=== PATIENT | female | born 1945 | race Caucasian/White ===

== ENCOUNTER 2017-07-23 12:30 | Emergency (ER) | payer MEDICARE, OTHER ==
[2017-07-23 12:51] VITALS: BP 134/74; PULSE 71; RESP 16; TEMP 97.3
--- NOTE | 2017-07-23 13:34 | ED ---
Fall HPI - General Chief Complaint: Fall Stated Complaint: Fall Time Seen by Provider: 07/23/17 13:01 Source: patient, RN notes reviewed Mode of arrival: wheelchair - History of Present Illness Initial Comments: This is a 71-year-old female who presents to the emergency department with chief complaint of fall. Patient states that 8 days ago while reaching up to grab something, she fell down and landed on her right side. She states that she was at ground level when she fell. She denies any head injury or loss of consciousness. Patient states that she "had the wind knocked out" of her and she "saw stars." Patient now complains of right sided rib pain. She states that the pain is positional, increasing when going from a sitting to a standing position or trying to get up. Patient states that last night when she went to get up to use the bathroom she felt a sharp pain underneath her right breast. She states that holding on to her ribs and applying pressure makes it easier to move about. Patient is concerned she may have a hairline rib fracture. Patient denies any other injuries. Denies fever, chills, chest pain, shortness of breath, abdominal pain, nausea or vomiting, constipation or diarrhea, dysuria or hematuria, numbness or tingling, headache or vision changes. - Related Data Allergies Allergy/AdvReac Type Severity Reaction Status Date / Time No Known Allergies Allergy Verified 07/23/17 12:41 Review of Systems ROS Statement: Those systems with pertinent positive or pertinent negative responses have been documented in the HPI. ROS Other: All systems not noted in ROS Statement are negative. Past Medical History Past Medical History: Hypertension History of Any Multi-Drug Resistant Organisms: None Reported Past Surgical History: Tubal Ligation Past Psychological History: Anxiety Smoking Status: Current every day smoker Past Alcohol Use History: None Reported Past Drug Use History: None Reported General Exam - General Exam Comments Initial Comments: General: Awake and alert, well-developed; in no apparent distress. HEENT: Head atraumatic, normocephalic. Pupils are equal, round and reactive to light. Extraocular movements intact. Oropharynx moist without erythema or exudate. Neck: Supple. Normal ROM. Cardiovascular: Regular rate and rhythm. No murmurs, rubs or gallops. Chest symmetrical. Tenderness on palpation of ribs underlying right breast. Respiratory: Lungs clear to auscultation bilaterally. No wheezes, rales or rhonchi. Normal respiratory effort with no use of accessory muscles. Skin: Mott, warm and dry without rashes or lesions. Neurological: Alert and oriented x3. CN II-XII grossly intact. Speech is fluent and answers are appropriate. No focal neuro deficits. Psychiatric: Normal mood and affect. No overt signs of depression or anxiety noted. Limitations: no limitations Course Vital Signs 07/23/17 12:41 Temperature 97.3 F L Pulse Rate 71 Respiratory 16 Rate Blood Pressure 134/74 O2 Sat by Pulse 95 Oximetry Medical Decision Making - Medical Decision Making This is a 71-year-old female who presents to the emergency department for evaluation of right-sided rib pain. On presentation, patient's vital signs are stable. Patient states her pain is positional, increasing with movement. She denies any shortness of breath or difficulty breathing. Chest and rib x-ray revealed no acute abnormalities. There is no evidence of a displaced rib fracture. Discussed with patient that she may have a hairline fracture of the rib which can take 6-8 weeks to heal. I notified patient that chest x-rays can miss hairline fractures. Patient was given an incentive spirometer and instructed to use 10 times per hour each day. Patient requested an Nikolay bandage to help relieve the pain. I educated patient that this restricts lungs capacity to fully inflate which may lead to pneumonia. Recommended the use of Tylenol as needed for pain. Patient will be discharged home. She is in agreement with plan and voices understanding. All questions were answered. This case was discussed with attending physician, Dr. Bruner. - Radiology Data Radiology results: report reviewed X-ray right ribs with PA chest findings: Lungs are clear. No consolidation or pneumothorax. There is diffuse osteopenia. There is a large hiatal hernia. Arthropathy of the before meals joint. Impression: No acute displaced rib fracture. Disposition Clinical Impression: Rib pain on right side Disposition: HOME SELF-CARE Condition: Good Instructions: Rib Contusion (ED) Additional Instructions: Please use incentive spirometer 10 times per hour each day. Please follow up with primary care provider within 1-2 days. Return to emergency department if symptoms should worsen or any concerns arise. Referrals: Tess Abraham III, MD [Primary Care Provider] - 1-2 days Time of Disposition: 14:28
--- NOTE | 2017-07-23 13:38 | XR ---
EXAMINATION TYPE: XR ribs RT w pa chest xray DATE OF EXAM: 07/23/2017 COMPARISON: NONE HISTORY: Pain post fall TECHNIQUE: PA view the chest and 4 views of the right ribs submitted FINDINGS: Lungs are clear. No consolidation or pneumothorax. There is diffuse osteopenia. There is a large hiatal hernia. Arthropathy of the AC joint. IMPRESSION: No acute displaced rib fracture
== END 2017-07-23 14:46 | disposition home or self-care (01) ==
LOC: EC 12:30
DX: R07.81 Pleurodynia (principal); F17.200 Nicotine dependence, unspecified, uncomplicated; W18.39XA Other fall on same level, initial encounter
CPT/HCPCS: 99283

== ENCOUNTER → 2019-01-29 | Outpatient (CLI) | payer MEDICARE, OTHER ==
[2019-01-29 09:27] LABS: African American GFR (CKD) >90 (>60 ml/min/1.73 sqM); Blood Urea Nitrogen 21 mg/dL (7-17)
--- NOTE | 2019-01-29 11:48 | CT ---
EXAMINATION TYPE: CT soft tissue neck w con DATE OF EXAM: 01/29/2019 COMPARISON: HISTORY: Right neck mass CONTRAST: CT scan of the neck is performed with IV Contrast, patient injected with 100 mL of Isovue 300. Contrast enhanced CT of the neck was performed from the skull base through the lung apices. AIRWAY: The supraglottic, glottic, and subglottic portions of the airway appear patent and free of mass. SALIVARY GLANDS: Predominately solid mass right parotid gland at the site of the palpable abnormality measuring 3.3 x 2.3 x 3.5 cm with a few small left intracystic components. Tissue diagnosis is recom mended to exclude the malignancy. No additional masses are seen of the either parotid gland. THYROID GLAND: Nonspecific hypoattenuating right thyroid lesion. LYMPH NODES: There is no evidence for periparotid adenopathy or internal jugular chain adenopathy. Th ere is a prominent lymph node within the right supraclavicular region measuring 1.2 cm short axis. LUNG APICES: No nodule or mass is seen. OTHER: Vascular structures are patent. No significant degenerative change of the cervical spine. N o abscess seen. IMPRESSION: 1.Predominately solid mass right parotid gland at the site of the palpable abnormality measuring 3.3 x 2.3 x 3.5 cm with a few small left intracystic components. Tissue diagnosis is recommended to exclu de the malignancy. 2. Right supraclavicular adenopathy.
== END | disposition home or self-care (01) ==
LOC: RADCTMAIN 08:28
PROVIDERS: ATTEND Family Medicine
DX: R59.9 Enlarged lymph nodes, unspecified (principal); R22.1 Localized swelling, mass and lump, neck
CPT/HCPCS: 82565; 84520; 70491; 36415; Q9967

== ENCOUNTER 2019-08-01 21:32 | Inpatient (IN) | payer MEDICARE, OTHER ==
[2019-08-01] MEDS ORDERED: SODIUM CHLORIDE 0.9% 1,000 ML IV STA (21:42)
[2019-08-01 22:24] LABS: ALT 100 U/L (4-34); AST 117 U/L (14-36); African American GFR (CKD) >90 (>60 ml/min/1.73 sqM); Albumin 3.7 g/dL (3.5-5.0); Alkaline Phosphatase 154 U/L (38-126); Amylase 223 U/L (30-110); Anion Gap 5 mmol/L; Basophils # (A) 0.1 k/uL (0-0.2); Basophils % (A) 1 %; Blood Urea Nitrogen 20 mg/dL (7-17); Calcium 8.8 mg/dL (8.4-10.2); Carbon Dioxide 26 mmol/L (22-30); Chloride 108 mmol/L (98-107); Eosinophils # (A) 0.1 k/uL (0-0.7); Eosinophils % (A) 1 %; Glucose 140 mg/dL (74-99); HCT 44.7 % (34.0-46.0); Lymphocytes # (A) 1.6 k/uL (1.0-4.8); Lymphocytes % (A) 16 %; MCH 27.5 pg (25.0-35.0); MCHC 31.2 g/dL (31.0-37.0); MCV 88.1 fL (80.0-100.0); Mean Platelet Volume 7.9; Monocytes # (A) 0.5 k/uL (0-1.0); Monocytes % (A) 5 %; Neutrophils # (A) 7.6 k/uL (1.3-7.7); Neutrophils % (A) 76 %; Non-African American GFR(CKD) >90 (>60 ml/min/1.73 sqM); Platelet Count 262 k/uL (150-450); RBC 5.08 m/uL (3.80-5.40); RDW 12.7 % (11.5-15.5); Sodium 139 mmol/L (137-145); Total Bilirubin 1.8 mg/dL (0.2-1.3); Total Protein 6.7 g/dL (6.3-8.2)
[2019-08-01 22:29] LABS: Partial Thromboplastin Time 23.5 sec (22.0-30.0); Prothrombin Time 10.1 sec (9.0-12.0)
--- NOTE | 2019-08-01 22:33 | ED ---
Abdominal Pain HPI - General Chief Complaint: Abdominal Pain Stated Complaint: Abdominal Pain Time Seen by Provider: 08/01/19 21:34 Source: patient, EMS, RN notes reviewed, old records reviewed Mode of arrival: EMS - History of Present Illness Initial Comments: This is a 73-year-old female here for evaluation of severe abdominal pain, epigastric a recurrent bowel pain severe history of gallbladder disease coming in with acute onset of sudden pain after eating dinner tonight. Patient has no prior surgical history. No shortness of breath no recent fevers. No recent chills or sick contacts, occasional diarrhea severe nausea no vomiting. She has had conflicting evaluations regarding gallbladder, no prior surgical evaluation MD Complaint: abdominal pain (Right upper quadrant epigastric) -: hour(s) Location: RUQ Radiation: RUQ Migration to: no migration Severity: severe Severity scale (1-10): 8 Quality: stabbing Consistency: constant Improves With: nothing Worsens With: eating - Related Data Allergies Allergy/AdvReac Type Severity Reaction Status Date / Time No Known Allergies Allergy Verified 07/23/17 12:41 Review of Systems ROS Statement: Those systems with pertinent positive or pertinent negative responses have been documented in the HPI. ROS Other: All systems not noted in ROS Statement are negative. Past Medical History Past Medical History: Hypertension History of Any Multi-Drug Resistant Organisms: None Reported Past Surgical History: Tubal Ligation Past Psychological History: Anxiety Smoking Status: Current every day smoker Past Alcohol Use History: None Reported Past Drug Use History: None Reported General Exam General appearance: alert, in no apparent distress, obese Head exam: Present: atraumatic, normocephalic, normal inspection Eye exam: Present: normal appearance, PERRL, EOMI. Absent: scleral icterus, conjunctival injection, periorbital swelling ENT exam: Present: normal exam, mucous membranes moist Neck exam: Present: normal inspection. Absent: tenderness, meningismus, lymphadenopathy Respiratory exam: Present: normal lung sounds bilaterally. Absent: respiratory distress, wheezes, rales, rhonchi, stridor Cardiovascular Exam: Present: regular rate, normal rhythm, normal heart sounds. Absent: systolic murmur, diastolic murmur, rubs, gallop, clicks GI/Abdominal exam: Present: soft, distended, tenderness, guarding (RUQ), normal bowel sounds. Absent: rebound, rigid Extremities exam: Present: normal inspection, full ROM, normal capillary refill. Absent: tenderness, pedal edema, joint swelling, calf tenderness Back exam: Present: normal inspection Neurological exam: Present: alert, oriented X3, CN II-XII intact Psychiatric exam: Present: normal affect, normal mood Skin exam: Present: warm, dry, intact, normal color. Absent: rash Course Vital Signs 08/01/19 08/01/19 08/01/19 21:38 22:30 23:00 Temperature 97.8 F Pulse Rate 64 110 H 113 H Respiratory 16 18 18 Rate Blood Pressure 112/54 120/65 172/88 O2 Sat by Pulse 93 L 100 99 Oximetry - Reevaluation(s) Reevaluation #1: 08/02/19 00:51 Medical records reviewed Reevaluation #2: 08/02/19 00:51 Pain improved - Consultations Consultation #1: [place] With Dr. Maradiaga accepting for admission Medical Decision Making - Medical Decision Making 9-year-old female here for evaluation his gallbladder disease, acute gallbladder cholecystitis, acute gallbladder pancreatitis. Patient be admitted for pain control and surgical evaluation - Lab Data Result diagrams: 08/01/19 21:42 08/01/19 21:42 Lab Results 08/01/19 08/01/19 08/01/19 Range/Units 21:42 21:42 21:42 WBC 10.0 (3.8-10.6) k/uL RBC 5.08 (3.80-5.40) m/uL Hgb 14.0 (11.4-16.0) gm/dL Hct 44.7 (34.0-46.0) % MCV 88.1 (80.0-100.0) fL MCH 27.5 (25.0-35.0) pg MCHC 31.2 (31.0-37.0) g/dL RDW 12.7 (11.5-15.5) % Plt Count 262 (150-450) k/uL Neutrophils % 76 % Lymphocytes % 16 % Monocytes % 5 % Eosinophils % 1 % Basophils % 1 % Neutrophils # 7.6 (1.3-7.7) k/uL Lymphocytes # 1.6 (1.0-4.8) k/uL Monocytes # 0.5 (0-1.0) k/uL Eosinophils # 0.1 (0-0.7) k/uL Basophils # 0.1 (0-0.2) k/uL PT (9.0-12.0) sec INR (<1.2) APTT (22.0-30.0) sec Sodium 139 (137-145) mmol/L Potassium 4.0 (3.5-5.1) mmol/L Chloride 108 H (98-107) mmol/L Carbon Dioxide 26 (22-30) mmol/L Anion Gap 5 mmol/L BUN 20 H (7-17) mg/dL Creatinine 0.60 (0.52-1.04) mg/dL Est GFR (CKD-EPI)AfAm >90 (>60 ml/min/1.73 sqM) Est GFR (CKD-EPI)NonAf >90 (>60 ml/min/1.73 sqM) Glucose 140 H (74-99) mg/dL Plasma Lactic Acid Maldonado 0.9 (0.7-2.0) mmol/L Calcium 8.8 (8.4-10.2) mg/dL Total Bilirubin 1.8 H (0.2-1.3) mg/dL AST 117 H (14-36) U/L ALT 100 H (4-34) U/L Alkaline Phosphatase 154 H (38-126) U/L Total Protein 6.7 (6.3-8.2) g/dL Albumin 3.7 (3.5-5.0) g/dL Amylase 223 H (30-110) U/L Lipase 5591 H (23-300) U/L 08/01/19 Range/Units 21:42 WBC (3.8-10.6) k/uL RBC (3.80-5.40) m/uL Hgb (11.4-16.0) gm/dL Hct (34.0-46.0) % MCV (80.0-100.0) fL MCH (25.0-35.0) pg MCHC (31.0-37.0) g/dL RDW (11.5-15.5) % Plt Count (150-450) k/uL Neutrophils % % Lymphocytes % % Monocytes % % Eosinophils % % Basophils % % Neutrophils # (1.3-7.7) k/uL Lymphocytes # (1.0-4.8) k/uL Monocytes # (0-1.0) k/uL Eosinophils # (0-0.7) k/uL Basophils # (0-0.2) k/uL PT 10.1 (9.0-12.0) sec INR 1.0 (<1.2) APTT 23.5 (22.0-30.0) sec Sodium (137-145) mmol/L Potassium (3.5-5.1) mmol/L Chloride (98-107) mmol/L Carbon Dioxide (22-30) mmol/L Anion Gap mmol/L BUN (7-17) mg/dL Creatinine (0.52-1.04) mg/dL Est GFR (CKD-EPI)AfAm (>60 ml/min/1.73 sqM) Est GFR (CKD-EPI)NonAf (>60 ml/min/1.73 sqM) Glucose (74-99) mg/dL Plasma Lactic Acid Maldonado (0.7-2.0) mmol/L Calcium (8.4-10.2) mg/dL Total Bilirubin (0.2-1.3) mg/dL AST (14-36) U/L ALT (4-34) U/L Alkaline Phosphatase (38-126) U/L Total Protein (6.3-8.2) g/dL Albumin (3.5-5.0) g/dL Amylase (30-110) U/L Lipase (23-300) U/L - Radiology Data Radiology results: report reviewed (Ultrasound positive for dilated common bile duct stone), image reviewed Disposition Clinical Impression: Acute gallstone pancreatitis, Abdominal pain Disposition: ADMITTED IP TO THIS [facility] Condition: Good Is patient prescribed a controlled substance at d/c from ED?: No Referrals: Tess Abraham III, MD [Primary Care Provider] - 1-2 days
--- NOTE | 2019-08-01 23:00 | US ---
EXAMINATION TYPE: US gallbladder DATE OF EXAM: 08/01/2019 COMPARISON: NONE CLINICAL HISTORY: pain. Abdomen pain x 1 day, patient not NPO, ate 3 hours prior to exam. EXAM MEASUREMENTS: Liver Length: 16.6 cm Gallbladder Wall: 0.2 cm CBD: 1.4 cm Right Kidney: 12.1 x 5.2 x 4.6 cm Difficult and limited study due to patient body habitus Pancreas: visualized portions wnl, limited by overlying midline bowel gas Liver: heterogeneous, mild intrahepatic ductal dilation Gallbladder: hydropic, multiple echogenic shadowing stones with largest measuring 2.7cm Evidence for sonographic Pate's sign: yes CBD: dilated Right Kidney: wnl IMPRESSION: Dilated gallbladder with numerous gallstones consistent with acute and chronic cholecystitis. No dila tion seen of the intrahepatic bile ducts.
[2019-08-01] MEDS ORDERED: KETOROLAC 30 MG/ML 1 ML VIAL IVP STA (23:09)
[2019-08-01] MEDS ORDERED: ONDANSETRON 4 MG/2 ML VIAL IVP STA (23:10)
[2019-08-02] MEDS ORDERED: AMPICILLIN-SULBACTAM 3 GM in SODIUM CHLORIDE 0.9% 100 ML IVPB STA (00:49)
[2019-08-02] MEDS ORDERED: SODIUM CHLORIDE 0.9% 1,000 ML IV STA ×2 (00:49)
[2019-08-02] MEDS ORDERED: MORPHINE SULFATE 4 MG/ML SYRINGE IVP STA (00:49)
[2019-08-02] MEDS ORDERED: SODIUM CHLORIDE 0.9% 500 ML 500 ML IV STA (00:49)
[2019-08-02] MEDS ORDERED: AMPICILLIN-SULBACTAM 3 GM in SODIUM CHLORIDE 0.9% 100 ML IVPB SCH (08:00)
[2019-08-02] MEDS: ENOXAPARIN 40 MG/0.4 ML SYRINGE SQ SCH ×2 (09:34→12:12)
--- NOTE | 2019-08-02 12:08 | P.GSHP ---
History of Present Illness H&P Date: 08/02/19 Chief Complaint: Dull pain This is a 73-year-old female who was admitted through the emergency room last night with complaints of abdominal pain. Patient's workup found evidence of gallstone pancreatitis with elevated lipase and amylase. She is several large gallstones in her gallbladder. Patient states that her pain is improved this morning. 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 Past Anesthesia/Blood Transfusion Reactions: No Reported Reaction Past Psychological History: Anxiety Additional Psychological History / Comment(s): PANIC ATTACKS ALMOST EVERY NIGHT BEFORE DEEP SLEEP Smoking Status: Current every day smoker Past Alcohol Use History: None Reported Past Drug Use History: None Reported Medications and Allergies Home Medications Medication Instructions Recorded Confirmed Type Carvedilol [Coreg] 3.125 mg PO BID 08/02/19 08/02/19 History Diazepam 2 - 4 mg PO DAILY PRN 08/02/19 08/02/19 History Lisinopril 40 mg PO DAILY 08/02/19 08/02/19 History amLODIPine [Norvasc] 5 mg PO DAILY 08/02/19 08/02/19 History Allergies Allergy/AdvReac Type Severity Reaction Status Date / Time No Known Allergies Allergy Verified 08/02/19 08:34 Surgical - Exam Vital Signs Temp Pulse Resp BP Pulse Ox 97.8 F 64 16 112/54 93 L 08/01/19 21:38 08/01/19 21:38 08/01/19 21:38 08/01/19 21:38 08/01/19 21:38 - General well developed, well nourished, no distress - Eyes PERRL - ENT normal pinna - Neck no masses - Respiratory normal expansion - Cardiovascular Rhythm: regular - Abdomen Abdomen: soft, non tender Results - Labs 08/01/19 21:42 08/01/19 21:42 Abnormal Lab Results - Last 24 Hours (Table) 08/01/19 Range/Units 21:42 Chloride 108 H (98-107) mmol/L BUN 20 H (7-17) mg/dL Glucose 140 H (74-99) mg/dL Total Bilirubin 1.8 H (0.2-1.3) mg/dL AST 117 H (14-36) U/L ALT 100 H (4-34) U/L Alkaline Phosphatase 154 H (38-126) U/L Amylase 223 H (30-110) U/L Lipase 5591 H (23-300) U/L Diabetes panel 08/01/19 Range/Units 21:42 Sodium 139 (137-145) mmol/L Potassium 4.0 (3.5-5.1) mmol/L Chloride 108 H (98-107) mmol/L Carbon Dioxide 26 (22-30) mmol/L BUN 20 H (7-17) mg/dL Creatinine 0.60 (0.52-1.04) mg/dL Glucose 140 H (74-99) mg/dL Calcium 8.8 (8.4-10.2) mg/dL AST 117 H (14-36) U/L ALT 100 H (4-34) U/L Alkaline Phosphatase 154 H (38-126) U/L Total Protein 6.7 (6.3-8.2) g/dL Albumin 3.7 (3.5-5.0) g/dL Calcium panel 08/01/19 Range/Units 21:42 Calcium 8.8 (8.4-10.2) mg/dL Albumin 3.7 (3.5-5.0) g/dL Pituitary panel 08/01/19 Range/Units 21:42 Sodium 139 (137-145) mmol/L Potassium 4.0 (3.5-5.1) mmol/L Chloride 108 H (98-107) mmol/L Carbon Dioxide 26 (22-30) mmol/L BUN 20 H (7-17) mg/dL Creatinine 0.60 (0.52-1.04) mg/dL Glucose 140 H (74-99) mg/dL Calcium 8.8 (8.4-10.2) mg/dL Adrenal panel 08/01/19 Range/Units 21:42 Sodium 139 (137-145) mmol/L Potassium 4.0 (3.5-5.1) mmol/L Chloride 108 H (98-107) mmol/L Carbon Dioxide 26 (22-30) mmol/L BUN 20 H (7-17) mg/dL Creatinine 0.60 (0.52-1.04) mg/dL Glucose 140 H (74-99) mg/dL Calcium 8.8 (8.4-10.2) mg/dL Total Bilirubin 1.8 H (0.2-1.3) mg/dL AST 117 H (14-36) U/L ALT 100 H (4-34) U/L Alkaline Phosphatase 154 H (38-126) U/L Total Protein 6.7 (6.3-8.2) g/dL Albumin 3.7 (3.5-5.0) g/dL Assessment and Plan Assessment: Cholecystitis Gallstone hepatitis Patient will undergo laparoscopic cholecystectomy in the a.m.
--- NOTE | 2019-08-02 12:59 | P.CONS ---
History of Present Illness - History of Present Illness This is a pleasant 73 years old female with past medical history of hypertens ion, anxiety, currently smoker. She follows up with Dr. Abraham. Presents because of abdominal pain. Patient was at [facility] [place] about 2 weeks ago and diagnosed with abdominal pain secondary to cholecystitis, patient was sent home for outpatient cholecystectomy, however last night she developed severe upper abdominal pain radiating to the chest and back associated with nausea but no vomiting, and constipation for 3 days duration. On admission to the hospital patient was found acute and chronic cholecystitis with gallstones on abdominal ultrasound. Vitals are stable, CBC within normal limits, BMP is unremarkable with creatinine 0.6, liver enzymes are mildly elevated with AST 117, ALT 100, bilirubin 1.8. Also lipase was elevated at 559. Patient was started on Unasyn, pain management with morphine and IV fluids at 100 mm/h but patient's his penile WANTED to be stopped or decreased, we going to lower rate to 50 mL/h 1 staff member told the patient that she has A. fib, patient denies history of A. fib, no EKG done in the emergency room as per patient, his EKG done on the floor which shows normal sinus rhythm at 63, also I checked the pulse for the patient and it was regular and good quality Currently her abdominal pain is significantly subsided, and she has any mild if any pain and on exam she has no tenderness. Patient also reports she has tumor in her right neck which is been checked by her surgeon at [facility] about 2 years ago and she's been told is benign, however she notices that is gradually getting bigger over 2 years.. Patient was encouraged to follow-up with the surgeon within 1-2 weeks and she agrees Review of Systems CONSTITUTIONAL: No fever, no malaise, no fatigue. HEENT: No recent visual problems or hearing problems. Denied any sore throat. CARDIOVASCULAR: No orthopnea, PND, no palpitations, no syncope. PULMONARY: No shortness of breath, no cough, no hemoptysis. GASTROINTESTINAL: No diarrhea, no nausea, no vomiting, no abdominal pain. Normoactive bowel sounds. NEUROLOGICAL: No headaches, no weakness, no numbness. HEMATOLOGICAL: Denies any bleeding or petechiae. GENITOURINARY: Denies any burning micturition, frequency, or urgency. MUSCULOSKELETAL/RHEUMATOLOGICAL: Denies any joint pain, swelling, or any muscle pain. ENDOCRINE: Denies any polyuria or polydipsia. 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 Past Anesthesia/Blood Transfusion Reactions: No Reported Reaction Past Psychological History: Anxiety Additional Psychological History / Comment(s): PANIC ATTACKS ALMOST EVERY NIGHT BEFORE DEEP SLEEP Smoking Status: Current every day smoker Past Alcohol Use History: None Reported Past Drug Use History: None Reported Medications and Allergies Home Medications Medication Instructions Recorded Confirmed Type Carvedilol [Coreg] 3.125 mg PO BID 08/02/19 08/02/19 History Diazepam 2 - 4 mg PO DAILY PRN 08/02/19 08/02/19 History Lisinopril 40 mg PO DAILY 08/02/19 08/02/19 History amLODIPine [Norvasc] 5 mg PO DAILY 08/02/19 08/02/19 History Allergies Allergy/AdvReac Type Severity Reaction Status Date / Time No Known Allergies Allergy Verified 08/02/19 08:34 Physical Exam Vitals: Vital Signs Temp Pulse Pulse Pulse Resp BP BP 08/02/19 09:40 140/80 08/02/19 07:00 97.8 F 63 15 111/61 08/02/19 01:49 97.3 F L 76 16 140/74 08/02/19 01:09 65 16 116/54 08/01/19 23:00 113 H 18 172/88 08/01/19 22:30 110 H 18 120/65 08/01/19 21:38 97.8 F 64 16 112/54 Pulse Ox 08/02/19 09:40 08/02/19 07:00 95 08/02/19 01:49 93 L 08/02/19 01:09 98 08/01/19 23:00 99 08/01/19 22:30 100 08/01/19 21:38 93 L Intake and Output 08/01/19 08/02/19 08/02/19 22:59 06:59 14:59 Intake Total 300 Balance 300 Intake: Intake, IV Titration 300 Amount Sodium Chloride 0.9% 1, 300 000 ml @ 100 mls/hr IV . Q10H STA Rx#:[id number] Other: Voiding Method Toilet Toilet Weight 81.647 kg 81.647 kg GENERAL: The patient is alert and oriented x3, not in any acute distress. Well developed, well nourished. -HEENT: Pupils are round and equally reacting to light. EOMI. No scleral icterus. No conjunctival pallor. Normocephalic, atraumatic. No pharyngeal erythema. No thyromegaly. About 2-3 cm right neck swellin painless and small withg CARDIOVASCULAR: S1 and S2 present. No murmurs, rubs, or gallops. PULMONARY: Chest is clear to auscultation, no wheezing or crackles. ABDOMEN: Soft, nontender, nondistended, normoactive bowel sounds. No palpable organomegaly. MUSCULOSKELETAL: No joint swelling or deformity. EXTREMITIES: No cyanosis, clubbing, or pedal edema. NEUROLOGICAL: Gross neurological examination did not reveal any focal deficits. SKIN: No rashes. No petechiae Results CBC & Chem 7: 08/01/19 21:42 08/01/19 21:42 Labs: Abnormal Lab Results - Last 24 Hours (Table) 08/01/19 Range/Units 21:42 Chloride 108 H (98-107) mmol/L BUN 20 H (7-17) mg/dL Glucose 140 H (74-99) mg/dL Total Bilirubin 1.8 H (0.2-1.3) mg/dL AST 117 H (14-36) U/L ALT 100 H (4-34) U/L Alkaline Phosphatase 154 H (38-126) U/L Amylase 223 H (30-110) U/L Lipase 5591 H (23-300) U/L Assessment and Plan Assessment: Acute on chronic cholecystitis Multiple gallstones Elevated liver enzymes Elevated lipase suspicious for pancreatitis Nicotine dependence Hypertension History of anxiety, not an active issue chronic right neck tumor for 2 years, 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 patient has some risk from surgery however she needs to have the surgery done which is acceptable change and is seen to Zosyn. Lower 50 mL per hour. I have lengthy discussion with the patient about her tumor and I encouraged her to follow up with her surgeon at [facility] and she agrees Labs and medication were reviewed.. Continue same treatment. Continue with symptomatic treatment. Resume home medication. Monitor lytes and vitals. DVT and GI prophylaxis. Further recommendations of the clinical course of the patient DVT prophylaxis: Subc Lovenox GI Prophylaxis: Pepcid Prognosis is guarded
[2019-08-02] MEDS: SODIUM CHLORIDE 0.9% 1,000 ML IV SCH (15:43)
[2019-08-02] MEDS: PIPERACILLIN-TAZOBACTAM 3.375 GM in SODIUM CHLORIDE 0.9% 100 ML IVPB SCH ×2 (17:01→23:58)
[2019-08-02] MEDS: CARVEDILOL 3.125 MG TAB PO SCH (17:01)
[2019-08-02] MEDS: FAMOTIDINE 20 MG/2 ML VIAL IV SCH (21:31)
[2019-08-03 07:48] LABS: ALT 76 U/L (4-34); AST 66 U/L (14-36); African American GFR (CKD) >90 (>60 ml/min/1.73 sqM); Albumin 3.1 g/dL (3.5-5.0); Alkaline Phosphatase 151 U/L (38-126); Anion Gap 5 mmol/L; Blood Urea Nitrogen 10 mg/dL (7-17); Calcium 8.4 mg/dL (8.4-10.2); Carbon Dioxide 28 mmol/L (22-30); Chloride 110 mmol/L (98-107); Glucose 80 mg/dL (74-99); Non-African American GFR(CKD) >90 (>60 ml/min/1.73 sqM); Potassium 3.7 mmol/L (3.5-5.1); Sodium 143 mmol/L (137-145); Total Bilirubin 1.3 mg/dL (0.2-1.3); Total Protein 5.8 g/dL (6.3-8.2)
[2019-08-03] MEDS: CARVEDILOL 3.125 MG TAB PO SCH ×2 (08:49→17:45)
[2019-08-03] MEDS: amLODIPine 5 MG TAB PO SCH (08:49)
[2019-08-03] MEDS: ENOXAPARIN 40 MG/0.4 ML SYRINGE SQ SCH (09:27)
[2019-08-03] MEDS: SODIUM CHLORIDE 0.9% 1,000 ML IV SCH (09:28)
[2019-08-03] MEDS ORDERED: fentaNYL (PF) 50 MCG/ML 2 ML AMP ONE (09:29)
[2019-08-03] MEDS ORDERED: PROPOFOL 10 MG/ML 20 ML VIAL IV ONE (09:29)
[2019-08-03] MEDS ORDERED: GLYCOPYRROLATE 0.2 MG/ML 2 ML VIAL ONE (09:29)
[2019-08-03] MEDS ORDERED: ONDANSETRON 4 MG/2 ML VIAL ONE (09:29)
[2019-08-03] MEDS ORDERED: MIDAZOLAM 2 MG/2 ML VIAL ONE (09:29)
[2019-08-03] MEDS ORDERED: DEXAMETHASONE SOD PHOS (MDV) 100 MG/10 ML VIAL ONE (09:29)
[2019-08-03] MEDS ORDERED: ROCURONIUM BROMIDE 10 MG/ML 10 ML VIAL IV ONE (09:29)
[2019-08-03] MEDS ORDERED: NEOSTIGMINE 1 MG/ML 10 ML VIAL ONE (09:29)
[2019-08-03] MEDS ORDERED: BUPIVACAINE (PF) 0.25% 30 ML VIAL SQ ONE (09:53)
[2019-08-03] MEDS ORDERED: IV FLUID CONTINUATION 700 ML IV ONE (10:02)
[2019-08-03] MEDS ORDERED: LACTATED RINGERS 1,000 ML IV ONE (10:13)
--- NOTE | 2019-08-03 10:26 | P.OP ---
Date of Procedure: 08/03/19 Preoperative Diagnosis: Cholecystitis Postoperative Diagnosis: Cholecystitis Procedure(s) Performed: Laparoscopic cholecystectomy Anesthesia: CHRISTI Surgeon: Marquise Maradiaga Estimated Blood Loss (ml): 5 Pathology: other (gAll latter) Condition: stable Disposition: PACU Description of Procedure: The patient was placed on the operating table. The patient received a general endotracheal tube anesthesia. The patients abdomen was prepped and draped in the usual sterile fashion. Through an infraumbilical stab incision, the fascia of the anterior abdominal wall was grasped with a pair of Kochers and then the Veress needle was placed in the peritoneal cavity. Position of the Veress needle was confirmed with positive drop test. The abdomen was then insufflated. After adequate insufflation, the 10 mm trocar was placed in the peritoneal cavity. Following this the laparoscope was placed in the peritoneal cavity. The patient was placed in the head-up, right side up position and then a 5 mm trocar was placed in the right lateral and right subcostal position under direct visualization. A 8 mm trocar was placed in the epigastric position. The gallbladder was grasped in the fundus and infundibulum. Traction on the gallbladder was placed in the lateral and the cephalad positions. The triangle of Calot was visualized.. The cystic duct was bluntly dissected until the union of the cystic duct and common bile duct was seen. A critical view of safety was achieved. The cystic duct was then divided and sealed with the Harmonic scissors. A PDS Endoloop was then placed throughout the cystic duct stump. The cystic artery divided and sealed with the Harmonic scissors. The gallbladder was then removed from the liver bed using Harmonic scissors. The gallbladder was then extracted through the epigastric port site. Operative field was checked for any bleeding spots and Harmonic scissors was used to coagulate the liver bed. The abdomen was irrigated. The trocars were removed. The skin was closed using interrupted 3-0 Vicryl suture. Dermabond dressing were applied. The patient tolerated the procedure well.
[2019-08-03] MEDS ORDERED: METOCLOPRAMIDE 5 MG/ML 2 ML VIAL IVP ONE (10:46)
[2019-08-03] MEDS ORDERED: MIDAZOLAM 2 MG/2 ML VIAL IVP ONE ×2 (10:46→10:51)
[2019-08-03] MEDS ORDERED: diphenhydrAMINE 50 MG/ML 1 ML VIAL IVP ONE (10:48)
[2019-08-03] MEDS: FAMOTIDINE 20 MG/2 ML VIAL IV SCH (12:06)
[2019-08-03] MEDS: PIPERACILLIN-TAZOBACTAM 3.375 GM in SODIUM CHLORIDE 0.9% 100 ML IVPB SCH ×3 (12:07→20:02)
--- NOTE | 2019-08-03 12:18 | P.PN ---
Subjective This is a pleasant 73 years old female with past medical history of hypertension, anxiety, currently smoker. She follows up with Dr. Abraham. Pres ents because of abdominal pain. Patient was at [facility] about 2 weeks ago and diagnosed with abdominal pain secondary to cholecystitis, patient was sent home for outpatient cholecystectomy, however last night she developed severe upper abdominal pain radiating to the chest and back associated with nausea but no vomiting, and constipation for 3 days duration. On admission to the hospital patient was found acute and chronic cholecystitis with gallstones on abdominal ultrasound. Vitals are stable, CBC within normal limits, BMP is unremarkable with creatinine 0.6, liver enzymes are mildly elevated with AST 117, ALT 100, bilirubin 1.8. Also lipase was elevated at 559. Patient was started on Unasyn, pain management with morphine and IV fluids at 100 mm/h but patient's his penile WANTED to be stopped or decreased, we going to lower rate to 50 mL/h 1 staff member told the patient that she has A. fib, patient denies history of A. fib, no EKG done in the emergency room as per patient, his EKG done on the floor which shows normal sinus rhythm at 63, also I checked the pulse for the pa tient and it was regular and good quality Currently her abdominal pain is significantly subsided, and she has any mild if any pain and on exam she has no tenderness. Patient also reports she has tumor in her right neck which is been checked by her surgeon at [facility] about 2 years ago and she's been told is benign, however she notices that is gradually getting bigger over 2 years.. Patient was encouraged to follow-up with the surgeon within 1-2 weeks and she agrees 08/03/2019 Patient is with acute and chronic cholecystitis and gallstone, she is status post laparoscopic cholecystectomy by surgery team today. She has some abdominal postoperative pain which is expected. Her liver enzymes and lipase are improving. Objective - Vital Signs Vital signs: Vital Signs Temp 98.2 F 08/03/19 10:29 Pulse 62 08/03/19 10:53 Resp 16 08/03/19 10:53 BP 136/80 08/03/19 10:53 Pulse Ox 100 08/03/19 10:53 Intake & Output 08/02/19 08/03/19 08/03/19 18:59 06:59 18:59 Intake Total 1400 Output Total 5 Balance 1395 Intake: IV 1400 Output: Estimated Blood Loss 5 Other: Voiding Method Toilet # Voids 2 3 - Exam GENERAL: The patient is alert and oriented x3, not in any acute distress. Well developed, well nourished. HEENT: Pupils are round and equally reacting to light. EOMI. No scleral icterus. No conjunctival pallor. Normocephalic, atraumatic. No pharyngeal erythema. No thyromegaly. CARDIOVASCULAR: S1 and S2 present. No murmurs, rubs, or gallops. PULMONARY: Chest is clear to auscultation, no wheezing or crackles. -ABDOMEN: Soft, right upper quadrant tenderness, nondistended, normoactive bowel sounds. No palpable organomegaly. MUSCULOSKELETAL: No joint swelling or deformity. EXTREMITIES: No cyanosis, clubbing, or pedal edema. NEUROLOGICAL: Gross neurological examination did not reveal any focal deficits. SKIN: No rashes. no petechiae. 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 patient has some risk from surgery however she needs to have the surgery done which is acceptable change and is seen to Zosyn. Lower 50 mL per hour. I have lengthy discussion with the patient about her tumor and I encouraged her to follow up with her surgeon at [facility] and she agrees Labs and medication were reviewed.. Continue same treatment. Continue with symptomatic treatment. Resume home medication. Monitor lytes and vitals. DVT and GI prophylaxis. Further recommendations of the clinical course of the patient DVT prophylaxis: Subc Lovenox GI Prophylaxis: Pepcid Prognosis is guarded
[2019-08-03] MEDS ORDERED: ONDANSETRON 4 MG/2 ML VIAL IVP PRN (12:19)
[2019-08-03] MEDS: MORPHINE SULFATE 4 MG/ML SYRINGE IVP PRN ×2 (12:20→20:03)
[2019-08-03] MEDS ORDERED: MORPHINE SULFATE 4 MG/ML SYRINGE IVP STA (14:50)
[2019-08-03] MEDS: FAMOTIDINE 20 MG TAB PO SCH (20:03)
[2019-08-03] MEDS ORDERED: MELATONIN 5 MG TABLET PO SCH (21:00)
[2019-08-04] MEDS: PIPERACILLIN-TAZOBACTAM 3.375 GM in SODIUM CHLORIDE 0.9% 100 ML IVPB SCH (05:10)
[2019-08-04] MEDS: SODIUM CHLORIDE 0.9% 1,000 ML IV SCH (05:14)
[2019-08-04 07:41] VITALS: BP 134/76; PULSE 60; RESP 18; TEMP 98.3
[2019-08-04] MEDS: FAMOTIDINE 20 MG TAB PO SCH (07:54)
[2019-08-04] MEDS: CARVEDILOL 3.125 MG TAB PO SCH (07:54)
[2019-08-04] MEDS: ENOXAPARIN 40 MG/0.4 ML SYRINGE SQ SCH (07:54)
[2019-08-04] MEDS: amLODIPine 5 MG TAB PO SCH (07:54)
[2019-08-04 09:41] LABS: ALT 63 U/L (4-34); AST 41 U/L (14-36); African American GFR (CKD) >90 (>60 ml/min/1.73 sqM); Albumin 3.5 g/dL (3.5-5.0); Alkaline Phosphatase 144 U/L (38-126); Anion Gap 3 mmol/L; Blood Urea Nitrogen 12 mg/dL (7-17); Calcium 8.8 mg/dL (8.4-10.2); Carbon Dioxide 31 mmol/L (22-30); Chloride 107 mmol/L (98-107); Glucose 107 mg/dL (74-99); Non-African American GFR(CKD) >90 (>60 ml/min/1.73 sqM); Potassium 4.5 mmol/L (3.5-5.1); Sodium 141 mmol/L (137-145); Total Bilirubin 0.7 mg/dL (0.2-1.3); Total Protein 6.3 g/dL (6.3-8.2)
[2019-08-04] MEDS ORDERED: LISINOPRIL 20 MG TAB PO SCH (10:15)
--- NOTE | 2019-08-04 10:16 | P.PN ---
Subjective This is a pleasant 73 years old female with past medical history of hypertension, anxiety, currently smoker. She follows up with Dr. Abraham. Pres ents because of abdominal pain. Patient was at [facility] about 2 weeks ago and diagnosed with abdominal pain secondary to cholecystitis, patient was sent home for outpatient cholecystectomy, however last night she developed severe upper abdominal pain radiating to the chest and back associated with nausea but no vomiting, and constipation for 3 days duration. On admission to the hospital patient was found acute and chronic cholecystitis with gallstones on abdominal ultrasound. Vitals are stable, CBC within normal limits, BMP is unremarkable with creatinine 0.6, liver enzymes are mildly elevated with AST 117, ALT 100, bilirubin 1.8. Also lipase was elevated at 559. Patient was started on Unasyn, pain management with morphine and IV fluids at 100 mm/h but patient's his penile WANTED to be stopped or decreased, we going to lower rate to 50 mL/h 1 staff member told the patient that she has A. fib, patient denies history of A. fib, no EKG done in the emergency room as per patient, his EKG done on the floor which shows normal sinus rhythm at 63, also I checked the pulse for the pa tient and it was regular and good quality Currently her abdominal pain is significantly subsided, and she has any mild if any pain and on exam she has no tenderness. Patient also reports she has tumor in her right neck which is been checked by her surgeon at [facility] about 2 years ago and she's been told is benign, however she notices that is gradually getting bigger over 2 years.. Patient was encouraged to follow-up with the surgeon within 1-2 weeks and she agrees 08/03/2019 Patient is with acute and chronic cholecystitis and gallstone, she is status post laparoscopic cholecystectomy by surgery team today. She has some abdominal postoperative pain which is expected. Her liver enzymes and lipase are improving. 08/04/2019 Patient is a status post lap barbara. Patient this morning is sitting in bed, no abdominal pain, no nausea vomiting, she is passing gases but not bowel movement, 3 surgical wounds s to the abdominal nonhealing, the upper one has little ulceration, but not actively bleeding. Patient has good appetite. No other problems no chest pain or dizziness or headache. Vitals are stable and liver and pancreatic enzymes are trending down and I reviewed them with the patient. Objective - Vital Signs Vital signs: Vital Signs Temp 98.3 F 08/04/19 07:00 Pulse 60 08/04/19 07:00 Resp 18 08/04/19 07:00 BP 134/76 08/04/19 07:00 Pulse Ox 95 08/04/19 07:00 Intake & Output 08/03/19 08/04/19 08/04/19 18:59 06:59 18:59 Intake Total 1575 Output Total 5 Balance 1570 Intake: IV 1400 Oral 175 Output: Estimated Blood Loss 5 Other: # Voids 1 1 - Exam GENERAL: The patient is alert and oriented x3, not in any acute distress. Well developed, well nourished. HEENT: Pupils are round and equally reacting to light. EOMI. No scleral icterus. No conjunctival pallor. Normocephalic, atraumatic. No pharyngeal erythema. No thyromegaly. CARDIOVASCULAR: S1 and S2 present. No murmurs, rubs, or gallops. PULMONARY: Chest is clear to auscultation, no wheezing or crackles. -ABDOMEN: Soft, right upper quadrant tenderness, nondistended, normoactive bowel sounds. No palpable organomegaly. MUSCULOSKELETAL: No joint swelling or deformity. EXTREMITIES: No cyanosis, clubbing, or pedal edema. NEUROLOGICAL: Gross neurological examination did not reveal any focal deficits. SKIN: No rashes. no petechiae. 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 Patient is doing well, pancreatic enzymes came back to normal, liver enzymes are trending down. Patient can resume her blood pressure medication however she was instructed to keep checking her blood pressure in 1-2 days and follow-up with her primary care doctor and she agrees I have lengthy discussion with the patient about her tumor and I encouraged her to follow up with her surgeon at [facility] and she agrees I discussed the case with Dr. Abraham, including recommendation to follow-up on her right neck tumor and he kindly took notes with this Labs and medication were reviewed.. Continue same treatment. Continue with symptomatic treatment. Resume home medication. Monitor lytes and vitals. DVT and GI prophylaxis. Further recommendations of the clinical course of the patient DVT prophylaxis: Subc Lovenox GI Prophylaxis: Pepcid Prognosis is guarded
--- NOTE | 2019-08-13 13:28 | P.DS ---
Providers Date of admission: 08/02/19 00:49 Expected date of discharge: 08/04/19 Attending physician: Marquise Maradiaga Consults: 08/02/19 09:44 Consult Physician Routine Consulting Provider: Mark Tate Consult Reason/Comments: Medical Management Do you want consulting provider notified?: Yes Primary care physician: Tess Abraham [place] Hospital Course: 73-year-old female who underwent laparoscopic cholecystectomy with Dr. Maradiaga on 08/03/2019. Patient is doing well postoperatively without any immediate complications. She is tolerating diet without nausea or vomiting. Pain is controlled on oral medications. Vital signs have been stable. She is stable for discharge home per Dr. Maradiaga. Please see EMR for further hospital course details. Discharge Diagnosis 1. Cholecystitis, status post laparoscopic cholecystectomy Nurse practitioner note has been reviewed by physician. Signing provider agrees with the documented findings, assessment, and plan of care. Patient Condition at Discharge: Stable Plan - Discharge Summary Discharge Rx Participant: No New Discharge Prescriptions: New Docusate [Colace] 100 mg PO BID #20 capsule HYDROcodone/APAP 5-325MG [[place] 5-325] 1 tab PO Q6HR PRN #10 tab PRN Reason: Pain Continue amLODIPine [Norvasc] 5 mg PO DAILY Diazepam 2 - 4 mg PO DAILY PRN PRN Reason: Anxiety Lisinopril 40 mg PO DAILY Carvedilol [Coreg] 3.125 mg PO BID Discharge Medication List Carvedilol [Coreg] 3.125 mg PO BID 08/02/19 [History] Diazepam 2 - 4 mg PO DAILY PRN 08/02/19 [History] Lisinopril 40 mg PO DAILY 08/02/19 [History] amLODIPine [Norvasc] 5 mg PO DAILY 08/02/19 [History] Docusate [Colace] 100 mg PO BID #20 capsule 08/04/19 [Rx] HYDROcodone/APAP 5-325MG [[place] 5-325] 1 tab PO Q6HR PRN #10 tab 08/04/19 [Rx] Follow up Appointment(s)/Referral(s): Tess Abraham III, MD [Primary Care Provider] - 08/06/19 10:30 am Marquise Maradiaga MD [STAFF PHYSICIAN] - 08/14/19 1:30 pm Discharge Disposition: HOME SELF-CARE
== END 2019-08-04 11:37 | disposition home or self-care (01) | DRG 417 ==
LOC: EC 21:32 → 4SSUR 08-02 00:49
PROVIDERS: ADMIT Surgery; ATTEND Surgery
PROC: 0FT44ZZ Resection of Gallbladder, Percutaneous Endoscopic Approach (ICD-10-PCS; principal; 2019-08-03 09:00)
DX: K80.12 Calculus of gallbladder with acute and chronic cholecystitis without obstruction (principal); K85.10 Biliary acute pancreatitis without necrosis or infection; K75.9 Inflammatory liver disease, unspecified; I10 Essential (primary) hypertension; I48.91 Unspecified atrial fibrillation; F41.0 Panic disorder [episodic paroxysmal anxiety]; F17.200 Nicotine dependence, unspecified, uncomplicated; Z79.899 Other long term (current) drug therapy
CPT/HCPCS: 36415; 76705; 80053; 82150; 83605; 83690; 85025; 85610; 85730; 88304; 93005; 96361; 96365; 96375; 99285

== ENCOUNTER 2019-08-08 11:34 | Emergency (ER) | payer MEDICARE, OTHER ==
[2019-08-08] MEDS ORDERED: SODIUM CHLORIDE 0.9% 1,000 ML IV ONE ×2 (12:45→14:02)
--- NOTE | 2019-08-08 14:17 | ED ---
Female Urogenital HPI - General Chief complaint: Urogenital Stated complaint: Post op complications,trouble urinating Time Seen by Provider: 08/08/19 11:58 Source: patient, RN notes reviewed, old records reviewed Mode of arrival: ambulatory Limitations: no limitations - History of Present Illness Initial comments: 73-year-old female presents emergency Department today with complaints of unable to urinate for the past 12 hours. Patient reports that she had gallbladder removed a last week, and reports she has been healing well since then. She states she had some constipation post surgery, and took stool softners. Over the past day she had diarrhea, and is concerned she hasnt had to urinate since having diarrhea. She complains of some lower back pain. - Related Data Home Medications Medication Instructions Recorded Confirmed Carvedilol [Coreg] 3.125 mg PO BID 08/02/19 08/02/19 Diazepam 2 - 4 mg PO DAILY PRN 08/02/19 08/02/19 Lisinopril 40 mg PO DAILY 08/02/19 08/02/19 amLODIPine [Norvasc] 5 mg PO DAILY 08/02/19 08/02/19 Previous Rx's Medication Instructions Recorded Docusate [Colace] 100 mg PO BID #20 capsule 08/04/19 HYDROcodone/APAP 5-325MG [[place] 1 tab PO Q6HR PRN #10 tab 08/04/19 5-325] Allergies Allergy/AdvReac Type Severity Reaction Status Date / Time No Known Allergies Allergy Verified 08/08/19 11:37 Review of Systems ROS Statement: Those systems with pertinent positive or pertinent negative responses have been documented in the HPI. ROS Other: All systems not noted in ROS Statement are negative. 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 Limitations: no limitations General appearance: alert, in no apparent distress Head exam: Present: atraumatic, normocephalic, normal inspection Eye exam: Present: normal appearance, PERRL, EOMI. Absent: scleral icterus, conjunctival injection, periorbital swelling ENT exam: Present: normal exam, mucous membranes moist Neck exam: Present: normal inspection. Absent: tenderness, meningismus, lymphadenopathy Respiratory exam: Present: normal lung sounds bilaterally. Absent: respiratory distress, wheezes, rales, rhonchi, stridor Cardiovascular Exam: Present: regular rate, normal rhythm, normal heart sounds. Absent: systolic murmur, diastolic murmur, rubs, gallop, clicks GI/Abdominal exam: Present: soft, normal bowel sounds, other (bruising over abdomen from surgery and heparin injection. Well appearing incision site. ). Absent: distended, tenderness, guarding, rebound, rigid Extremities exam: Present: normal inspection, full ROM, normal capillary refill. Absent: tenderness, pedal edema, joint swelling, calf tenderness Back exam: Present: normal inspection Course Vital Signs 08/08/19 08/08/19 08/08/19 11:37 14:43 15:10 Temperature 97.9 F 98.0 F Pulse Rate 87 88 79 Respiratory 18 20 18 Rate Blood Pressure 115/77 110/56 112/62 O2 Sat by Pulse 97 99 99 Oximetry Medical Decision Making - Medical Decision Making 73 year old female with concern of diarrhea after stool softners, and unable to urinate. Patient has anurai likely due to diarrhea and dehydration. Patient given IV fluids, labs obtained. Labs are unremarkable. She was able to urinate after fluids and felt better. Discussed hydration importance and PCP follow up and surgery follow up. She has no abdominal tenderness or pain. Discussed return parameters. - Lab Data Result diagrams: 08/08/19 13:05 08/08/19 13:05 Lab Results 08/08/19 08/08/19 08/08/19 Range/Units 13:05 13:05 13:05 WBC 6.5 (3.8-10.6) k/uL RBC 5.61 H (3.80-5.40) m/uL Hgb 15.5 (11.4-16.0) gm/dL Hct 48.9 H (34.0-46.0) % MCV 87.1 (80.0-100.0) fL MCH 27.7 (25.0-35.0) pg MCHC 31.8 (31.0-37.0) g/dL RDW 12.9 (11.5-15.5) % Plt Count 327 (150-450) k/uL Neutrophils % 59 % Lymphocytes % 29 % Monocytes % 8 % Eosinophils % 2 % Basophils % 1 % Neutrophils # 3.8 (1.3-7.7) k/uL Lymphocytes # 1.9 (1.0-4.8) k/uL Monocytes # 0.5 (0-1.0) k/uL Eosinophils # 0.2 (0-0.7) k/uL Basophils # 0.1 (0-0.2) k/uL PT 10.2 (9.0-12.0) sec INR 1.0 (<1.2) APTT 23.3 (22.0-30.0) sec Sodium 142 (137-145) mmol/L Potassium 3.5 (3.5-5.1) mmol/L Chloride 106 (98-107) mmol/L Carbon Dioxide 29 (22-30) mmol/L Anion Gap 7 mmol/L BUN 18 H (7-17) mg/dL Creatinine 0.57 (0.52-1.04) mg/dL Est GFR (CKD-EPI)AfAm >90 (>60 ml/min/1.73 sqM) Est GFR (CKD-EPI)NonAf >90 (>60 ml/min/1.73 sqM) Glucose 97 (74-99) mg/dL Calcium 8.9 (8.4-10.2) mg/dL Total Bilirubin 0.7 (0.2-1.3) mg/dL AST 21 (14-36) U/L ALT 29 (4-34) U/L Alkaline Phosphatase 112 (38-126) U/L Total Protein 7.0 (6.3-8.2) g/dL Albumin 3.9 (3.5-5.0) g/dL Urine Color Urine Appearance (Clear) Urine pH (5.0-8.0) Ur Specific [place] (1.001-1.035) Urine Protein (Negative) Urine Glucose (UA) (Negative) Urine Ketones (Negative) Urine Blood (Negative) Urine Nitrite (Negative) Urine Bilirubin (Negative) Urine Urobilinogen (<2.0) mg/dL Ur Leukocyte Esterase (Negative) Urine RBC (0-5) /hpf Urine WBC (0-5) /hpf Ur Squamous Epith Cells (0-4) /hpf Hyaline Casts (0-2) /lpf Urine Mucus (None) /hpf 08/08/19 Range/Units 14:44 WBC (3.8-10.6) k/uL RBC (3.80-5.40) m/uL Hgb (11.4-16.0) gm/dL Hct (34.0-46.0) % MCV (80.0-100.0) fL MCH (25.0-35.0) pg MCHC (31.0-37.0) g/dL RDW (11.5-15.5) % Plt Count (150-450) k/uL Neutrophils % % Lymphocytes % % Monocytes % % Eosinophils % % Basophils % % Neutrophils # (1.3-7.7) k/uL Lymphocytes # (1.0-4.8) k/uL Monocytes # (0-1.0) k/uL Eosinophils # (0-0.7) k/uL Basophils # (0-0.2) k/uL PT (9.0-12.0) sec INR (<1.2) APTT (22.0-30.0) sec Sodium (137-145) mmol/L Potassium (3.5-5.1) mmol/L Chloride (98-107) mmol/L Carbon Dioxide (22-30) mmol/L Anion Gap mmol/L BUN (7-17) mg/dL Creatinine (0.52-1.04) mg/dL Est GFR (CKD-EPI)AfAm (>60 ml/min/1.73 sqM) Est GFR (CKD-EPI)NonAf (>60 ml/min/1.73 sqM) Glucose (74-99) mg/dL Calcium (8.4-10.2) mg/dL Total Bilirubin (0.2-1.3) mg/dL AST (14-36) U/L ALT (4-34) U/L Alkaline Phosphatase (38-126) U/L Total Protein (6.3-8.2) g/dL Albumin (3.5-5.0) g/dL Urine Color Yellow Urine Appearance Clear (Clear) Urine pH 6.0 (5.0-8.0) Ur Specific [place] 1.013 (1.001-1.035) Urine Protein Negative (Negative) Urine Glucose (UA) Negative (Negative) Urine Ketones Negative (Negative) Urine Blood Negative (Negative) Urine Nitrite Negative (Negative) Urine Bilirubin Negative (Negative) Urine Urobilinogen <2.0 (<2.0) mg/dL Ur Leukocyte Esterase Trace H (Negative) Urine RBC 3 (0-5) /hpf Urine WBC 2 (0-5) /hpf Ur Squamous Epith Cells 3 (0-4) /hpf Hyaline Casts 1 (0-2) /lpf Urine Mucus Moderate H (None) /hpf Disposition Clinical Impression: Dehydration, Anuria Disposition: HOME SELF-CARE Condition: Good Instructions (If sedation given, give patient instructions): Dehydration (ED) Additional Instructions: Patient advised to rest, increase fluid intake. Follow-up with primary care physician. Is patient prescribed a controlled substance at d/c from ED?: No Referrals: Tess Abraham III, MD [Primary Care Provider] - 1-2 days Time of Disposition: 14:57
[2019-08-08 14:29] LABS: Basophils # (A) 0.1 k/uL (0-0.2); Basophils % (A) 1 %; Eosinophils # (A) 0.2 k/uL (0-0.7); Eosinophils % (A) 2 %; HCT 48.9 % (34.0-46.0); HGB 15.5 gm/dL (11.4-16.0); Lymphocytes # (A) 1.9 k/uL (1.0-4.8); Lymphocytes % (A) 29 %; MCH 27.7 pg (25.0-35.0); MCHC 31.8 g/dL (31.0-37.0); MCV 87.1 fL (80.0-100.0); Mean Platelet Volume 8.6; Monocytes # (A) 0.5 k/uL (0-1.0); Monocytes % (A) 8 %; Neutrophils # (A) 3.8 k/uL (1.3-7.7); Neutrophils % (A) 59 %; Platelet Count 327 k/uL (150-450); RBC 5.61 m/uL (3.80-5.40); RDW 12.9 % (11.5-15.5); WBC 6.5 k/uL (3.8-10.6)
[2019-08-08 14:37] LABS: Partial Thromboplastin Time 23.3 sec (22.0-30.0); Prothrombin Time 10.2 sec (9.0-12.0)
[2019-08-08 14:40] LABS: ALT 29 U/L (4-34); AST 21 U/L (14-36); African American GFR (CKD) >90 (>60 ml/min/1.73 sqM); Albumin 3.9 g/dL (3.5-5.0); Alkaline Phosphatase 112 U/L (38-126); Anion Gap 7 mmol/L; Blood Urea Nitrogen 18 mg/dL (7-17); Calcium 8.9 mg/dL (8.4-10.2); Carbon Dioxide 29 mmol/L (22-30); Chloride 106 mmol/L (98-107); Glucose 97 mg/dL (74-99); Non-African American GFR(CKD) >90 (>60 ml/min/1.73 sqM); Potassium 3.5 mmol/L (3.5-5.1); Sodium 142 mmol/L (137-145); Total Bilirubin 0.7 mg/dL (0.2-1.3)
[2019-08-08 14:49] LABS: Appearance,Urine Clear (Clear); Bilirubin,Urine Negative (Negative); Blood,Urine Negative (Negative); Color,Urine Yellow; Glucose,Urine (UA) Negative (Negative); Hyaline Casts,Urine 1 /lpf (0-2); Ketones,Urine Negative (Negative); Leukocyte Esterase,Urine Trace (Negative); Mucus,Urine Moderate /hpf; Nitrite,Urine Negative (Negative); Protein,Urine Negative (Negative); RBC,Urine 3 /hpf (0-5); Specific Gravity,Urine 1.013 (1.001-1.035); Squamous Epithelial Cell,Urine 3 /hpf (0-4); Urobilinogen,Urine <2.0 mg/dL (<2.0); WBC,Urine 2 /hpf (0-5)
[2019-08-08 15:22] VITALS: BP 112/62; PULSE 79; RESP 18; TEMP 98
== END 2019-08-08 15:10 | disposition home or self-care (01) ==
LOC: EC 11:34
DX: E86.0 Dehydration (principal); K91.840 Postprocedural hemorrhage of a digestive system organ or structure following a digestive system procedure; R19.7 Diarrhea, unspecified; M54.5 Low back pain; I10 Essential (primary) hypertension; F17.200 Nicotine dependence, unspecified, uncomplicated; Z79.899 Other long term (current) drug therapy; Z90.49 Acquired absence of other specified parts of digestive tract
CPT/HCPCS: 36415; 80053; 81001; 85025; 85610; 85730; 96360; 96361; 99283

== ENCOUNTER 2021-03-26 19:45 | Emergency (ER) | payer MEDICARE, OTHER ==
[2021-03-26] MEDS ORDERED: SODIUM CHLORIDE 0.9% 500 ML 500 ML IV STA (20:04)
[2021-03-26] MEDS ORDERED: LORazepam 2 MG/ML INJ IV STA (20:05)
--- NOTE | 2021-03-26 20:09 | ED ---
SOB HPI - General Chief Complaint: Shortness of Breath Stated Complaint: SOB Time Seen by Provider: 03/26/21 19:55 Source: patient, family Mode of arrival: wheelchair Limitations: no limitations - History of Present Illness Initial Comments: 75 year-old female patient with recent CVA in the last couple of weeks presents to the emergency department for evaluation of cough, shortness of breath, and low grade fevers. Patient was in [place] when she had a stroke, states that she was doing well afterwards but started declining when they got home. Patient is quite anxious and nervous. Having trouble finding her words. Daughter states that her son was recently diagnosed with COVID and now the patient is having symptoms. She is taking blood thinning medications. Denies any urinary urgency, burning, frequency, or hematuria. States she has had some nausea and diarrhea. Patient denies any recent rash, chest pain, abdominal pain, back pain, numbness, tingling, dizziness, weakness, headache, visual changes, or any other complaints. - Related Data Home Medications Medication Instructions Recorded Confirmed diazePAM [Diazepam] 2 mg PO HS 08/02/19 03/26/21 lisinopriL 40 mg PO DAILY 08/02/19 03/26/21 Aspirin EC [Ecotrin Low Dose] 81 mg PO DAILY 03/26/21 03/26/21 Atorvastatin Calcium [Lipitor] 40 mg PO HS 03/26/21 03/26/21 Clopidogrel Bisulfate [Plavix] 75 mg PO DAILY 03/26/21 03/26/21 PARoxetine HCL [Paxil] 10 mg PO HS 03/26/21 03/26/21 Allergies Allergy/AdvReac Type Severity Reaction Status Date / Time No Known Allergies Allergy Verified 03/26/21 21:06 Review of Systems ROS Statement: Those systems with pertinent positive or pertinent negative responses have been documented in the HPI. ROS Other: All systems not noted in ROS Statement are negative. 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 Vital signs upon presentation temperature 98.1F, pulse 82, respirations 22, blood pressure 90/57, pulse ox 90% on room air.) Eye exam: Present: normal appearance, PERRL, EOMI. Absent: scleral icterus, conjunctival injection, periorbital swelling ENT exam: Present: normal exam, normal oropharynx, mucous membranes moist Respiratory exam: Present: normal lung sounds bilaterally. Absent: respiratory distress, wheezes, rales, rhonchi, stridor Cardiovascular Exam: Present: regular rate, normal rhythm, normal heart sounds. Absent: systolic murmur, diastolic murmur, rubs, gallop, clicks GI/Abdominal exam: Present: soft, normal bowel sounds. Absent: distended, tenderness, guarding, rebound, rigid Neurological exam: Present: alert, oriented X3, CN II-XII intact Psychiatric exam: Present: normal affect, normal mood Skin exam: Present: warm, dry, intact, normal color. Absent: rash Course Vital Signs 03/26/21 03/26/21 03/26/21 19:46 20:40 22:00 Temperature 98.1 F Pulse Rate 82 68 65 Respiratory 22 18 20 Rate Blood Pressure 90/57 106/75 O2 Sat by Pulse 90 L 97 98 Oximetry 03/26/21 22:35 Temperature 99.2 F Pulse Rate 63 Respiratory 18 Rate Blood Pressure 106/75 O2 Sat by Pulse 99 Oximetry Medical Decision Making - Medical Decision Making 75 year-old female patient presents to the emergency department for evaluation of upper respiratory symptoms and fever. Has been exposed to COVID. Does have history of COPD. Physical exam revealed clear lung sounds. She was 90% on room air. Labs were reviewed and were relatively unremarkable. She did test positive for COVID. Chest xray shows no abnormalities. I did discuss results with the family. They do feel comfortable being discharged home at this time. Patient given dose of decadron and will receive monoclonal antibodies prior to discharge. They're instructed to follow-up with the primary care physician for recheck in 1-2 days. Daughter and patient verbalize understanding and agree with this plan. - Lab Data Result diagrams: 03/26/21 20:23 03/26/21 20:23 Lab Results 03/26/21 03/26/21 03/26/21 Range/Units 20:23 20:23 20:23 WBC 3.6 L (3.8-10.6) k/uL RBC 5.33 (3.80-5.40) m/uL Hgb 15.3 (11.4-16.0) gm/dL Hct 45.4 (34.0-46.0) % MCV 85.1 (80.0-100.0) fL MCH 28.7 (25.0-35.0) pg MCHC 33.7 (31.0-37.0) g/dL RDW 13.3 (11.5-15.5) % Plt Count 251 (150-450) k/uL MPV 7.8 Neutrophils % 57 % Lymphocytes % 32 % Monocytes % 8 % Eosinophils % 0 % Basophils % 1 % Neutrophils # 2.1 (1.3-7.7) k/uL Lymphocytes # 1.2 (1.0-4.8) k/uL Monocytes # 0.3 (0-1.0) k/uL Eosinophils # 0.0 (0-0.7) k/uL Basophils # 0.0 (0-0.2) k/uL PT 10.7 (9.0-12.0) sec INR 1.0 (<1.2) APTT 25.3 (22.0-30.0) sec D-Dimer 0.45 (<0.60) mg/L FEU Sodium 137 (137-145) mmol/L Potassium 3.8 (3.5-5.1) mmol/L Chloride 104 (98-107) mmol/L Carbon Dioxide 26 (22-30) mmol/L Anion Gap 7 mmol/L BUN 23 H (7-17) mg/dL Creatinine 0.81 (0.52-1.04) mg/dL Est GFR (CKD-EPI)AfAm 84 (>60 ml/min/1.73 sqM) Est GFR (CKD-EPI)NonAf 73 (>60 ml/min/1.73 sqM) Glucose 128 H (74-99) mg/dL Plasma Lactic Acid Maldonado (0.7-2.0) mmol/L Calcium 8.7 (8.4-10.2) mg/dL Magnesium 2.0 (1.6-2.3) mg/dL Total Bilirubin 0.4 (0.2-1.3) mg/dL AST 40 H (14-36) U/L ALT 20 (4-34) U/L Alkaline Phosphatase 69 (38-126) U/L Troponin I (0.000-0.034) ng/mL Total Protein 6.2 L (6.3-8.2) g/dL Albumin 3.4 L (3.5-5.0) g/dL Coronavirus (PCR) (Not Detectd) 03/26/21 03/26/21 03/26/21 Range/Units 20:23 20:23 20:23 WBC (3.8-10.6) k/uL RBC (3.80-5.40) m/uL Hgb (11.4-16.0) gm/dL Hct (34.0-46.0) % MCV (80.0-100.0) fL MCH (25.0-35.0) pg MCHC (31.0-37.0) g/dL RDW (11.5-15.5) % Plt Count (150-450) k/uL MPV Neutrophils % % Lymphocytes % % Monocytes % % Eosinophils % % Basophils % % Neutrophils # (1.3-7.7) k/uL Lymphocytes # (1.0-4.8) k/uL Monocytes # (0-1.0) k/uL Eosinophils # (0-0.7) k/uL Basophils # (0-0.2) k/uL PT (9.0-12.0) sec INR (<1.2) APTT (22.0-30.0) sec D-Dimer (<0.60) mg/L FEU Sodium (137-145) mmol/L Potassium (3.5-5.1) mmol/L Chloride (98-107) mmol/L Carbon Dioxide (22-30) mmol/L Anion Gap mmol/L BUN (7-17) mg/dL Creatinine (0.52-1.04) mg/dL Est GFR (CKD-EPI)AfAm (>60 ml/min/1.73 sqM) Est GFR (CKD-EPI)NonAf (>60 ml/min/1.73 sqM) Glucose (74-99) mg/dL Plasma Lactic Acid Maldonado 1.8 (0.7-2.0) mmol/L Calcium (8.4-10.2) mg/dL Magnesium (1.6-2.3) mg/dL Total Bilirubin (0.2-1.3) mg/dL AST (14-36) U/L ALT (4-34) U/L Alkaline Phosphatase (38-126) U/L Troponin I 0.014 (0.000-0.034) ng/mL Total Protein (6.3-8.2) g/dL Albumin (3.5-5.0) g/dL Coronavirus (PCR) Detected A (Not Detectd) - EKG Data -: EKG Interpreted by Me EKG Comments: EKG obtained in 1957 shows normal sinus rhythm with a ventricular rate of 84, KS interval 150, QRS duration 82, QT 384, QTC 453. No evidence of ST elevation or depression. - Radiology Data Radiology results: report reviewed, image reviewed Two-view x-ray of the chest is obtained. Report was reviewed in its entirety. Impression by Dr. Garcia shows no acute cardiopulmonary process. Mild to moderate size hiatal hernia Disposition Clinical Impression: COVID-19 Disposition: HOME SELF-CARE Condition: Good Instructions (If sedation given, give patient instructions): Coronavirus Disease 2019 (COVID-19) Additional Instructions: Follow up with the primary care physician for recheck in 1-2 days. Return to the emergency department for any new, worsening, or concerning symptoms. Is patient prescribed a controlled substance at d/c from ED?: No Referrals: Tess Abraham III, MD [STAFF PHYSICIAN] - 1-2 days Time of Disposition: 22:05
[2021-03-26 20:34] LABS: Basophils % (A) 1 %; Eosinophils % (A) 0 %; HCT 45.4 % (34.0-46.0); HGB 15.3 gm/dL (11.4-16.0); Lymphocytes # (A) 1.2 k/uL (1.0-4.8); Lymphocytes % (A) 32 %; MCH 28.7 pg (25.0-35.0); MCHC 33.7 g/dL (31.0-37.0); MCV 85.1 fL (80.0-100.0); Mean Platelet Volume 7.8; Monocytes # (A) 0.3 k/uL (0-1.0); Monocytes % (A) 8 %; Neutrophils # (A) 2.1 k/uL (1.3-7.7); Neutrophils % (A) 57 %; Platelet Count 251 k/uL (150-450); RBC 5.33 m/uL (3.80-5.40); RDW 13.3 % (11.5-15.5); WBC 3.6 k/uL (3.8-10.6)
[2021-03-26 20:50] LABS: Albumin 3.4 g/dL (3.5-5.0); Calcium 8.7 mg/dL (8.4-10.2); Potassium 3.8 mmol/L (3.5-5.1); Total Bilirubin 0.4 mg/dL (0.2-1.3); Total Protein 6.2 g/dL (6.3-8.2)
[2021-03-26 20:55] LABS: Partial Thromboplastin Time 25.3 sec (22.0-30.0); Prothrombin Time 10.7 sec (9.0-12.0)
--- NOTE | 2021-03-26 21:10 | XR ---
EXAMINATION TYPE: XR chest 2V DATE OF EXAM: 03/26/2021 COMPARISON: Chest radiograph 07/23/2017 HISTORY: Difficulty breathing TECHNIQUE: Frontal and lateral views of the chest are obtained. FINDINGS: Cardiomediastinal silhouette appears within normal limits. No focal consolidation, pleural effusion, or pneumothorax. Visualized osseous structures appear intact. Mild/moderate sized hiatal hernia. . IMPRESSION: 1. No acute cardiopulmonary process. 2. Mild to moderate sized hiatal hernia.
[2021-03-26] MEDS ORDERED: DEXAMETHASONE SOD PHOSPHATE 10 MG/ML 1 ML VIAL IV STA (22:05)
[2021-03-26] MEDS ORDERED: SODIUM CHLORIDE 0.9% 50 ML IVPB ONE (22:15)
[2021-03-26] MEDS ORDERED: CASIRIVIMAB/IMDEVIMAB (EUA) 1,200 MG in SODIUM CHLORIDE 0.9% 100 ML IVPB ONE (22:15)
[2021-03-26 22:38] VITALS: RESP 18; TEMP 99.2
[2021-03-27 00:19] VITALS: BP 154/83; PULSE 68
== END 2021-03-27 00:27 | disposition home or self-care (01) ==
LOC: EC 19:45
DX: U07.1 COVID-19 (principal); I10 Essential (primary) hypertension; F41.9 Anxiety disorder, unspecified; Z79.82 Long term (current) use of aspirin; Z79.02 Long term (current) use of antithrombotics/antiplatelets; Z86.73 Personal history of transient ischemic attack (TIA), and cerebral infarction without residual deficits; Z90.49 Acquired absence of other specified parts of digestive tract; Z98.51 Tubal ligation status; Z87.891 Personal history of nicotine dependence
CPT/HCPCS: 99285; 96365; 96366; 96375 ×2; 96361 ×2; 93005; 85379; 80053; 83605; 83735; 84484; 85025; 85610; 85730; 87635; 71046; J2060; J1100; Q0243

== ENCOUNTER 2021-04-22 19:11 | Emergency (ER) | payer MEDICARE, OTHER ==
[2021-04-22 19:19] VITALS: TEMP 98.4
[2021-04-22] MEDS ORDERED: ASPIRIN 81 MG PO STA (19:50)
--- NOTE | 2021-04-22 19:53 | ED ---
General Adult HPI - General Chief complaint: Chest Pain Stated complaint: chest pain/post stroke Time Seen by Provider: 04/22/21 19:29 Source: patient, family Mode of arrival: ambulatory Limitations: no limitations - History of Present Illness Initial comments: Dictation was produced using [employer] dictation software. please excuse any grammatical, word or spelling errors. Chief Complaint: 75-year-old female presents with episode of chest pain History of Present Illness: 75-year-old female several months ago she suffered from a stroke while in [place]. Patient has residual right-sided weakness. Daughter is at the bedside able to help providing history of present illness. Patient is a poor historian. Daughter reports that patient was complained to her about having some chest pain earlier today. Daughter took her blood p ressure systolic was measured to be in the 180s. Daughter was really concerned and gave patient some of her nitroglycerin. Her blood pressure decreased per she is driven to the emergency department. Patient reports that the chest pain lasted for several minutes. She has difficulty describing it. She states that it's resolved. She has no history of coronary artery disease or cardiac history. Patient denies any associated shortness of breath. No associated diaphoresis but there was some nausea. The ROS documented in this emergency department record has been reviewed and confirmed by me. Those systems with pertinent positive or negative responses have been documented in the HPI. All other systems are other negative and/or noncontributory. PHYSICAL EXAM: General Impression: Alert and oriented x3, not in acute distress HEENT: Normocephalic atraumatic, extra-ocular movements intact, pupils equal and reactive to light bilaterally, mucous membranes moist. Cardiovascular: Heart regular rate and rhythm Chest: Able to complete full sentences, no retractions, no tachypnea Abdomen: abdomen soft, non-tender, non-distended, no organomegaly Musculoskeletal: Pulses present and equal in all extremities, no peripheral edema Motor: no focal deficits noted Neurological: CN II-XII grossly intact, no focal motor or sensory deficits noted Skin: Intact with no visualized rashes Psych: Normal affect and mood ED course: 75-year-old feel presents to the emergency department for atypical c hest pain with typical features. She does not have any history of coronary artery disease but she does have history of stroke. Signs upon arrival are within acceptable limits. Patient is asymptomatic at this time. EKG does not show any signs of ischemia or infarction. Laboratory evaluation obtained. CBC, coag panel, Bolick panel showed is obtained. Potassium 3.2. Patient given oral potassium. Troponin negative. Chest x-ray is nonacute. Patient reevaluated bedside at 10:00 PM. Disposition options were discussed. Discussed with patient that I would recommend at least a 3 hour troponin to decrease patient's risk for 30 day major adverse cardiac event. She is also given option to be admitted observation for serial troponins and possibly cardiology consultation. Patient declined and would prefer to go home. She lives nearby under the care of her daughter. Patient told to seek immediate medical attention if she has any chest pain especially if it includes pressure, association with diaphoresis in association with nausea. Patient has been asymptomatic entire time in the emergency department. Patient will be discharged. EKG interpretation: Ventricular rate 61, sinus rhythm, OH interval 154, QRS 80, QTC 424. No OH prolongation, no QTC prolongation, no ST or T-wave changes noted. EKG compared to 03/26/2021 showing no changes. Overall, this EKG is unremarkable - Related Data Home Medications Medication Instructions Recorded Confirmed diazePAM [Diazepam] 2 mg PO HS 08/02/19 03/26/21 lisinopriL 40 mg PO DAILY 08/02/19 03/26/21 Aspirin EC [Ecotrin Low Dose] 81 mg PO DAILY 03/26/21 03/26/21 Atorvastatin Calcium [Lipitor] 40 mg PO HS 03/26/21 03/26/21 Clopidogrel Bisulfate [Plavix] 75 mg PO DAILY 03/26/21 03/26/21 PARoxetine HCL [Paxil] 10 mg PO HS 03/26/21 03/26/21 Allergies Allergy/AdvReac Type Severity Reaction Status Date / Time No Known Allergies Allergy Verified 04/22/21 19:18 Review of Systems ROS Statement: Those systems with pertinent positive or pertinent negative responses have been documented in the HPI. ROS Other: All systems not noted in ROS Statement are negative. 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 History of Any Multi-Drug Resistant Organisms: None Reported Past Surgical History: Cholecystectomy, Tubal Ligation Additional Past Surgical History / Comment(s): eye surgery; cataract to left eye, glaucoma to right eye Past Anesthesia/Blood Transfusion Reactions: No Reported Reaction Past Psychological History: Anxiety Smoking Status: Former smoker Past Alcohol Use History: None Reported Past Drug Use History: None Reported General Exam Limitations: no limitations Course Vital Signs 04/22/21 04/22/21 19:13 21:21 Temperature 98.4 F Pulse Rate 62 57 L Respiratory 22 18 Rate Blood Pressure 190/87 136/79 O2 Sat by Pulse 93 L 95 Oximetry Medical Decision Making - Lab Data Result diagrams: 04/22/21 20:15 04/22/21 20:15 Lab Results 04/22/21 04/22/21 04/22/21 Range/Units 20:15 20:15 20:15 WBC 7.4 (3.8-10.6) k/uL RBC 5.09 (3.80-5.40) m/uL Hgb 14.4 (11.4-16.0) gm/dL Hct 44.8 (34.0-46.0) % MCV 88.1 (80.0-100.0) fL MCH 28.4 (25.0-35.0) pg MCHC 32.2 (31.0-37.0) g/dL RDW 13.5 (11.5-15.5) % Plt Count 245 (150-450) k/uL MPV 8.4 Neutrophils % 58 % Lymphocytes % 30 % Monocytes % 7 % Eosinophils % 3 % Basophils % 1 % Neutrophils # 4.3 (1.3-7.7) k/uL Lymphocytes # 2.2 (1.0-4.8) k/uL Monocytes # 0.5 (0-1.0) k/uL Eosinophils # 0.2 (0-0.7) k/uL Basophils # 0.0 (0-0.2) k/uL PT 10.2 (9.0-12.0) sec INR 0.9 (<1.2) APTT 23.3 (22.0-30.0) sec Sodium 138 (137-145) mmol/L Potassium 3.2 L (3.5-5.1) mmol/L Chloride 103 (98-107) mmol/L Carbon Dioxide 30 (22-30) mmol/L Anion Gap 5 mmol/L BUN 18 H (7-17) mg/dL Creatinine 0.64 (0.52-1.04) mg/dL Est GFR (CKD-EPI)AfAm >90 (>60 ml/min/1.73 sqM) Est GFR (CKD-EPI)NonAf 89 (>60 ml/min/1.73 sqM) Glucose 104 H (74-99) mg/dL Calcium 8.7 (8.4-10.2) mg/dL Magnesium 2.0 (1.6-2.3) mg/dL Total Bilirubin 0.4 (0.2-1.3) mg/dL AST 21 (14-36) U/L ALT 12 (4-34) U/L Alkaline Phosphatase 98 (38-126) U/L Troponin I (0.000-0.034) ng/mL Total Protein 6.2 L (6.3-8.2) g/dL Albumin 3.2 L (3.5-5.0) g/dL 04/22/21 Range/Units 20:15 WBC (3.8-10.6) k/uL RBC (3.80-5.40) m/uL Hgb (11.4-16.0) gm/dL Hct (34.0-46.0) % MCV (80.0-100.0) fL MCH (25.0-35.0) pg MCHC (31.0-37.0) g/dL RDW (11.5-15.5) % Plt Count (150-450) k/uL MPV Neutrophils % % Lymphocytes % % Monocytes % % Eosinophils % % Basophils % % Neutrophils # (1.3-7.7) k/uL Lymphocytes # (1.0-4.8) k/uL Monocytes # (0-1.0) k/uL Eosinophils # (0-0.7) k/uL Basophils # (0-0.2) k/uL PT (9.0-12.0) sec INR (<1.2) APTT (22.0-30.0) sec Sodium (137-145) mmol/L Potassium (3.5-5.1) mmol/L Chloride (98-107) mmol/L Carbon Dioxide (22-30) mmol/L Anion Gap mmol/L BUN (7-17) mg/dL Creatinine (0.52-1.04) mg/dL Est GFR (CKD-EPI)AfAm (>60 ml/min/1.73 sqM) Est GFR (CKD-EPI)NonAf (>60 ml/min/1.73 sqM) Glucose (74-99) mg/dL Calcium (8.4-10.2) mg/dL Magnesium (1.6-2.3) mg/dL Total Bilirubin (0.2-1.3) mg/dL AST (14-36) U/L ALT (4-34) U/L Alkaline Phosphatase (38-126) U/L Troponin I <0.012 (0.000-0.034) ng/mL Total Protein (6.3-8.2) g/dL Albumin (3.5-5.0) g/dL Disposition Clinical Impression: Chest pain Disposition: HOME SELF-CARE Condition: Fair Instructions (If sedation given, give patient instructions): Chest Pain (ED) Is patient prescribed a controlled substance at d/c from ED?: No Referrals: Stella Castro MD [Primary Care Provider] - 1-2 days
[2021-04-22 20:28] LABS: Basophils % (A) 1 %; Eosinophils # (A) 0.2 k/uL (0-0.7); Eosinophils % (A) 3 %; HCT 44.8 % (34.0-46.0); HGB 14.4 gm/dL (11.4-16.0); Lymphocytes # (A) 2.2 k/uL (1.0-4.8); Lymphocytes % (A) 30 %; MCH 28.4 pg (25.0-35.0); MCHC 32.2 g/dL (31.0-37.0); MCV 88.1 fL (80.0-100.0); Mean Platelet Volume 8.4; Monocytes # (A) 0.5 k/uL (0-1.0); Monocytes % (A) 7 %; Neutrophils # (A) 4.3 k/uL (1.3-7.7); Neutrophils % (A) 58 %; Platelet Count 245 k/uL (150-450); RBC 5.09 m/uL (3.80-5.40); RDW 13.5 % (11.5-15.5); WBC 7.4 k/uL (3.8-10.6)
[2021-04-22 20:37] LABS: ALT 12 U/L (4-34); AST 21 U/L (14-36); African American GFR (CKD) >90 (>60 ml/min/1.73 sqM); Albumin 3.2 g/dL (3.5-5.0); Alkaline Phosphatase 98 U/L (38-126); Anion Gap 5 mmol/L; Blood Urea Nitrogen 18 mg/dL (7-17); Calcium 8.7 mg/dL (8.4-10.2); Carbon Dioxide 30 mmol/L (22-30); Chloride 103 mmol/L (98-107); Glucose 104 mg/dL (74-99); Non-African American GFR(CKD) 89 (>60 ml/min/1.73 sqM); Potassium 3.2 mmol/L (3.5-5.1); Sodium 138 mmol/L (137-145); Total Bilirubin 0.4 mg/dL (0.2-1.3); Total Protein 6.2 g/dL (6.3-8.2)
[2021-04-22 20:38] LABS: INR 0.9 (<1.2); Partial Thromboplastin Time 23.3 sec (22.0-30.0); Prothrombin Time 10.2 sec (9.0-12.0)
[2021-04-22] MEDS ORDERED: POTASSIUM CHLORIDE ER 20 MEQ TAB.ER PO STA (20:52)
[2021-04-22 21:22] VITALS: RESP 18
--- NOTE | 2021-04-22 21:25 | XR ---
EXAMINATION TYPE: XR chest 2V DATE OF EXAM: 04/22/2021 COMPARISON: Chest radiograph 03/26/2021 HISTORY: Chest pain TECHNIQUE: Frontal and lateral views of the chest are obtained. FINDINGS: The cardiomediastinal silhouette and pulmonary vasculature are within normal limits. . No consolidation, effusion or pneumothorax. Hiatal hernia. IMPRESSION: 1. No Acute cardiopulmonary process. 2. Hiatal hernia.
[2021-04-22 22:41] VITALS: BP 156/67; PULSE 66
== END 2021-04-22 22:41 | disposition home or self-care (01) ==
LOC: EC 19:11
DX: R07.89 Other chest pain (principal); I10 Essential (primary) hypertension; F41.9 Anxiety disorder, unspecified; Z79.82 Long term (current) use of aspirin; Z87.891 Personal history of nicotine dependence; Z90.49 Acquired absence of other specified parts of digestive tract; Z86.73 Personal history of transient ischemic attack (TIA), and cerebral infarction without residual deficits; Z79.899 Other long term (current) drug therapy
CPT/HCPCS: 36415; 71046; 80053; 83735; 84484; 85025; 85610; 85730; 93005; 99285

== ENCOUNTER 2022-04-14 11:11 | Day surgery (SDC) | payer MEDICARE, OTHER ==
[2022-04-13 09:11] VITALS: BMI 24.1
[2022-04-14] MEDS ORDERED: SODIUM CHLORIDE 0.9% 500 ML 500 ML IV ONE (11:25)
[2022-04-14 11:36] VITALS: RESP 16; TEMP 98.4
[2022-04-14] MEDS ORDERED: fentaNYL (PF) 50 MCG/ML 2 ML AMP ONE (12:51)
[2022-04-14] MEDS ORDERED: BENZOCAINE SPRAY 1 CAN TOPICAL ONE ×2 (13:00→13:02)
[2022-04-14] MEDS ORDERED: MIDAZOLAM 2 MG/2 ML VIAL IV ONE (13:01)
[2022-04-14] MEDS ORDERED: fentaNYL (PF) 50 MCG/ML 2 ML AMP IV ONE (13:01)
[2022-04-14] MEDS ORDERED: SODIUM CHLORIDE 0.9% 1,000 ML IV SCH (13:15)
[2022-04-14 13:43] VITALS: PULSE 62
[2022-04-14 14:22] VITALS: BP 153/72
--- NOTE | 2022-04-14 18:17 | P.PCN ---
Date of Procedure: 04/14/22 Operative Findings: TRANSESOPHAGEAL ECHOCARDIOGRAM TEST BORE HELPER: GLENN CARBAJAL MD, RPVI INDICATION: This is a 76-year-old female patient was diagnosed recently with embolic stroke. The SID is to rule out any cardiac source of embolization SEDATION: Conscious sedation COMPLICATION: None LEVEL OF SEDATION Moderate with sedation at length of 12 minutes PROCEDURE DESCRIPTION: After obtaining an informed consent, the patient was brought to transesophageal echocardiogram room. Pulse oximetry and heart monitors were attached to the patient. The patient throat was sprayed using lidocaine. The patient was turned into left lateral position. After that a bite guard was placed. After an appropriate conscious sedation was initiated, the transesophageal echocardiogram was advanced through a bite guard into the mid esophagus. A 2-D echocardiogram images, color Doppler images, continuous wave images, pulse-wave images, of various cardiac structure were performed. After that the transesophageal echocardiogram probe was advanced into the stomach and fixed to obtain transgastric view was. The probe was brought into the mid esophagus. Inter-atrial septum was interrogated using 2D images, color Doppler images, and then contrast study. After that transesophageal echocardiogram was withdrawn out and upon withdrawing the descending thoracic aorta all the way up to the arch was evaluated. FINDING: The left ventricular dimension and systolic function appeared to be within normal limits. The ejection fraction appears to be in the range of 50-55%. The right ventricle appeared to be of normal size and function. The left atrium appears to be dilated. The left atrial appendage appeared to be free from any thrombus. The interatrial septum appears to be aneurysmal was evidence of patent foramen ovale and right to left shunt. The aortic valve is trileaflet valve without stenosis or regurgitation. The mitral valve seems to be thickened was evidence of moderate mitral regurgitation. No evidence of pericardial effusion identified. CONCLUSION: 1. Aneurysmal intra-atrial septum was evidence of patent foramen ovale and [id number] shunt was identified on contrast to study 2. Intact left atrial appendage without any evidence of thrombus 3. Normal left ventricular dimension and systolic function 4. Normal right ventricular dimension and systolic function 5. Thickened mitral valve leaflets with moderate mitral regurgitation 6. Aortic sclerosis without stenosis or insufficiency
== END 2022-04-14 14:10 | disposition home or self-care (01) ==
LOC: CATHCVL 11:11
PROVIDERS: ATTEND Internal Medicine Interventional Cardiology
DX: Q21.1 Atrial septal defect (principal); I08.0 Rheumatic disorders of both mitral and aortic valves; Z86.73 Personal history of transient ischemic attack (TIA), and cerebral infarction without residual deficits; Z20.822 Contact with and (suspected) exposure to COVID-19; I10 Essential (primary) hypertension; E78.00 Pure hypercholesterolemia, unspecified; Z79.02 Long term (current) use of antithrombotics/antiplatelets; Z79.899 Other long term (current) drug therapy
CPT/HCPCS: 93312; 93320; 93325; 87635; J2250; J3010

== ENCOUNTER 2022-10-04 09:09 | Day surgery (SDC) | payer MEDICARE, OTHER ==
[~2022-10-04 09:09] MED LIST: ALPRAZolam 0.25 MG TAB PO PRN; ALPRAZolam 0.5 MG TAB PO PRN; ASPIRIN 325 MG TAB PO STA; ATORVASTATIN 80 MG TAB PO STA; HEPARIN SODIUM,PORCINE 10,000 UNIT in SODIUM CHLORIDE 0.9% 1,000 ML IRRIGATION PRN; HEPARIN SODIUM,PORCINE 2,500 UNIT in SODIUM CHLORIDE 0.9% 250 ML IRRIGATION PRN; NITROGLYCERIN SL TABS 0.4 MG TAB SUBLINGUAL PRN; SODIUM CHLORIDE 0.9% 1,000 ML in EMPTY BAG 1 BAG IV SCH
[2022-10-04 09:50] LABS: Anisocytosis Slight; Basophils # (A) 0.1 k/uL (0-0.2); Basophils % (A) 1 %; Eosinophils # (A) 0.2 k/uL (0-0.7); Eosinophils % (A) 3 %; HCT 37.5 % (34.0-46.0); HGB 11.6 gm/dL (11.4-16.0); Hypochromasia Slight; Lymphocytes # (A) 1.6 k/uL (1.0-4.8); Lymphocytes % (A) 23 %; MCV 77.5 fL (80.0-100.0); Mean Platelet Volume 6.7; Microcytosis Slight; Monocytes # (A) 0.3 k/uL (0-1.0); Monocytes % (A) 5 %; Neutrophils # (A) 4.4 k/uL (1.3-7.7); Neutrophils % (A) 66 %; Platelet Count 305 k/uL (150-450); RBC 4.84 m/uL (3.80-5.40); RDW 16.6 % (11.5-15.5); WBC 6.7 k/uL (3.8-10.6)
[2022-10-04 10:13] LABS: African American GFR (CKD) >90 (>60 ml/min/1.73 sqM); Anion Gap 1 mmol/L; Blood Urea Nitrogen 17 mg/dL (7-17); Calcium 6.9 mg/dL (8.4-10.2); Carbon Dioxide 26 mmol/L (22-30); Chloride 114 mmol/L (98-107); Glucose 73 mg/dL (74-99); Non-African American GFR(CKD) >90 (>60 ml/min/1.73 sqM); Sodium 141 mmol/L (137-145)
[2022-10-04] MEDS ORDERED: LIDOCAINE 1% INJ 10MG/ML (20 ML MDV) ONE (10:36)
[2022-10-04] MEDS ORDERED: fentaNYL (PF) 50 MCG/ML 2 ML AMP ONE (10:37)
[2022-10-04] MEDS ORDERED: MIDAZOLAM 2 MG/2 ML VIAL IV ONE (10:57)
[2022-10-04] MEDS ORDERED: LIDOCAINE 1% INJ 10MG/ML (20 ML MDV) SQ ONE (10:59)
[2022-10-04] MEDS ORDERED: fentaNYL (PF) 50 MCG/ML 2 ML AMP IV ONE (11:09)
[2022-10-04] MEDS ORDERED: HEPARIN SODIUM 1,000 UN/ML (10ML VL) IV ONE (11:09)
[2022-10-04] MEDS ORDERED: CLOPIDOGREL 75 MG TAB ONE (11:20)
[2022-10-04] MEDS ORDERED: CLOPIDOGREL 75 MG TAB PO ONE (11:23)
[2022-10-04] MEDS ORDERED: IOPAMIDOL-370 100ML BTL INJ ONE (11:38)
[2022-10-04] MEDS ORDERED: ALPRAZolam 0.5 MG TAB PO PRN (11:39)
[2022-10-04] MEDS ORDERED: ASPIRIN 325 MG TAB PO PRN (11:39)
[2022-10-04] MEDS ORDERED: SODIUM CHLORIDE 0.9% 1,000 ML IV SCH (11:45)
--- NOTE | 2022-10-04 11:45 | P.PCN ---
Date of Procedure: 10/04/22 Operative Findings: PERCUTANEOUS CLOSURE OF PATENT FORAMEN OVALE (PFO) PERFORMING PHYSICIAN: Jay Hinton MD, [facility] PROCEDURE PERFORMED: 1. Successful percutaneous closure of PFO using 25 mm Amplatzer PFO Occluder with an excellent results and without any residual shunt. 2. Intracardiac echocardiogram imaging. 3. Right atrial angiogram. 4. Ultrasound-guided access of the right common femoral vein 2 INDICATION: This is a 77-year-old female patient who was diagnosed with embolic stroke and she underwent further evaluation including SID revealed patent foramen ovale with [id number] shunt APPROACH: Right common femoral vein 2 COMPLICATION: None. LEVEL OF SEDATION: Moderate with sedation length of 26 minutes. PROCEDURE DESCRIPTION: After obtaining informed consent, the patient was brought to the cardiac catheter finisher and inspector. The right common femoral vein was cannulated x2 using micropuncture technique under ultrasound guidance, the micropuncture wire passed easily, then I placed two 8-Bolivian sheath in the right groin. Subsequently I cannulated the left common femoral vein with the same technique and I placed an 8-Bolivian sheath there as well. At that point, anticoagulation was initiated using heparin and the patient was given a bolus of 5,000 units of heparin IV with continuous ACT monitoring throughout the procedure. After that, the intracardiac echocardiogram probe was advanced through one of the venous sheath all the way to the right atrium. We did interrogate the interatrial septum and identified the patent foramen ovale which was measured about 25 mm. Subsequently, I did cross the defect using 0.035 J-wire with the backup support of multipurpose catheter. The wire was advanced all the way to the left upper pulmonary vein and subsequently the catheter was advanced over the wire to the left upper pulmonary vein. The 0.035 J-wire was pulled out and then I advanced a millie wire. Subsequently, the multipurpose catheter was withdrawn out and the wire was left in the left upper pulmonary vein. After that, I did prep the Amplatzer PFO occluder under saline. The device was loaded into the batch unloader, which was attached to the sheath. Subsequently, I did exchange my 8-Bolivian sheath into the Shuttle sheath over a 0.035 Millie wire. The sheath was advanced all the way under fluoroscopy guidance to the left atrium. Subsequently, the dilator of the sheath was withdrawn out along with the wire. After that, I did load the Amplatzer occluder under continuous saline flush to the sheath. The device was advanced all the way through the sheath were I did where I did deploy initially the left atrial occluder and then I pulled back the sheath and the left atrial occluder all the way to the interatrial septum and then I deployed the right atrial occluder after that. Before I released the device, I did interrogate the septum using ice images on multiple views. After I realized that the device was stable enough and in good position the device was released. Interrogation using ice was also performed after the device was released. By the end I did right atrial angiogram. The procedure was completed without any complication. POSTPROCEDURE MANAGEMENT: 1. Dual anti-platelet therapy. 2. Follow-up with the patient
[2022-10-04] MEDS ORDERED: ACETAMINOPHEN TAB 325 MG TAB PO PRN (13:00)
[2022-10-04] MEDS ORDERED: ACETAMINOPHEN TAB 325 MG TAB ONE (13:01)
--- NOTE | 2022-10-04 16:33 | XR ---
EXAMINATION TYPE: XR chest 2V DATE OF EXAM: 10/04/2022 COMPARISON: Prior chest x-ray March 01, 2022 HISTORY: Post PFO repair. Chest pain. TECHNIQUE: Frontal and lateral views of the chest are obtained. FINDINGS: There is mild chronic parenchymal changes bilaterally without suspicious new focal air spa ce opacity, pleural effusion, or pneumothorax seen. Cardiomegaly is redemonstrated. New density from patent foramen ovale surgical repair is noted. Retrocardiac opacity on current study is suspicious fo r moderate to large size hiatal hernia. The osseous structures remain demineralized. IMPRESSION: Chronic changes and cardiomegaly without acute pulmonary process.
[2022-10-04] MEDS: lisinopriL 20 MG TAB PO SCH (20:10)
[2022-10-04] MEDS ORDERED: ATORVASTATIN 40 MG TAB PO SCH (21:00)
[2022-10-04] MEDS ORDERED: amLODIPine 5 MG TAB PO SCH (21:00)
[2022-10-05] MEDS ORDERED: Potassium Replacement Protocol 1 EACH MISC MISCELLANE PRN (07:30)
[2022-10-05 07:45] VITALS: BP 130/75; PULSE 80; RESP 18; TEMP 97.9
[2022-10-05] MEDS ORDERED: POTASSIUM CHLORIDE ER 20 MEQ TAB.ER PO SCH (08:00)
[2022-10-05] MEDS ORDERED: ASPIRIN 325 MG TAB PO SCH (09:00)
[2022-10-05] MEDS ORDERED: CLOPIDOGREL 75 MG TAB PO SCH ×2 (09:00)
[2022-10-05 09:24] LABS: African American GFR (CKD) >90 (>60 ml/min/1.73 sqM); Anion Gap 4 mmol/L; Blood Urea Nitrogen 15 mg/dL (7-17); Carbon Dioxide 28 mmol/L (22-30); Chloride 107 mmol/L (98-107); Glucose 139 mg/dL (74-99); Potassium 4.1 mmol/L (3.5-5.1); Sodium 139 mmol/L (137-145)
[2022-10-05 09:25] LABS: Calcium 8.6 mg/dL (8.4-10.2); Non-African American GFR(CKD) >90 (>60 ml/min/1.73 sqM)
[2022-10-05] MEDS: lisinopriL 20 MG TAB PO SCH (09:57)
--- NOTE | 2022-10-05 11:36 | CA ---
Transthoracic Echo Report Name: Zuly Weir Age: 77 Gender: F : 1945 Exam Date: 10/04/2022 16:31 Exam Location: [facility] Ht (in): 65 Wt (lb): 157 Ordering Physician: Jay Hinton MD ([id number]) Attending/Referring Phys: Jay Hinton MD ([id number]) Box Car Checker Amber Nolen RDCS Procedure CPT: Indications: Chest Pain, Post FPO Repair Cardiac Hx: Technical Quality: Good Contrast 1: Total Dose (mL): Contrast 2: Total Dose (mL): MEASUREMENTS (Male / Female) Normal Values 2D ECHO LV Diastolic Diameter PLAX 3.5 cm 4.2 - 5.9 / 3.9 - 5.3 cm LV Systolic Diameter PLAX 2.2 cm IVS Diastolic Thickness 1.3 cm 0.6 - 1.0 / 0.6 - 0.9 cm LVPW Diastolic Thickness 1.2 cm 0.6 - 1.0 / 0.6 - 0.9 cm LV Relative Wall Thickness 0.7 RV Internal Dim ED PLAX 3.0 cm LA Systolic Diameter LX 3.1 cm 3.0 - 4.0 / 2.7 - 3.8 cm LA Volume 53.1 cm??? 18 - 58 / 22 - 52 cm??? M-MODE Aortic Root Diameter MM 3.2 cm MV E Point Septal Separation 0.4 cm AV Cusp Separation MM 1.9 cm DOPPLER AV Peak Velocity 188.4 cm/s AV Peak Gradient 14.2 mmHg MV Peak Velocity 144.0 cm/s MV Peak Gradient 8.3 mmHg MV Mean Velocity 82.2 cm/s MV Mean Gradient 3.1 mmHg MV Velocity Time Integral 44.4 cm MV Area PHT 1.6 cm??? Mitral E Point Velocity 109.5 cm/s Mitral A Point Velocity 131.1 cm/s Mitral E to A Ratio 0.8 MV Deceleration Time 487.1 ms TR Peak Velocity 200.0 cm/s TR Peak Gradient 16.0 mmHg Right Ventricular Systolic Press 21.0 mmHg FINDINGS Left Ventricle Left ventricular ejection fraction is estimated at 55-60 %. Small left ventricular cavity. Mild concentric left ventricular hypertrophy. No obvious regional wall motion abnormalities. Right Ventricle Normal right ventricular size and function. Right ventricular systolic pressure within normal limits. Right Atrium Normal right atrial size. Closure device seen on the atrial level without evidence of shunt Left Atrium Mildly increased left atrial volume. Mitral Valve Mitral valve thickened. Moderate mitral annular calcification. Mild mitral stenosis with mean gradient of 3.1 mmHg Aortic Valve Trileaflet aortic valve. Aortic valve sclerosis. Mild aortic stenosis with a peak gradient of 14 mmHg and a mean gradient of 8 mmHg. Tricuspid Valve Structurally normal tricuspid valve. Mild tricuspid regurgitation. Pulmonic Valve Structurally normal pulmonic valve. Mild pulmonic regurgitation. Pericardium Normal pericardium. No pericardial effusion. Pleural effusion. Aorta Normal size aortic root and proximal ascending aorta. CONCLUSIONS Normal LV systolic function Stable atrial septal occluder with no residual shunt No evidence of pericardial effusion Previewed by: Dr. Jay Hinton MD (Electronically Signed) Final Date: 05 October 2022 11:36
--- NOTE | 2022-10-05 11:41 | P.DS ---
Providers Attending physician: Jay Hinton Primary care physician: Physician [facility] Course: The patient is a pleasant 77-year-old female patient who underwent yesterday successful percutaneous closure of patent foramen ovale using 25 mm Amplatzer PFO occluder with an excellent results. She was seen this morning. She is asymptomatic. She is hemodynamically stable. Her potassium was low yesterday and it was replaced and her potassium this morning is within normal limits. The right groin is mildly tender but there is no hematoma area, going to obtain ultrasound for further clarification. If the ultrasound is unremarkable the patient is going to be discharged home on dual antiplatelet therapy and she will follow-up with Dr. Alvarez next week in the office Plan - Discharge Summary Discharge Rx Participant: No New Discharge Prescriptions: Continue lisinopriL 20 mg PO BID Aspirin 325 mg PO DAILY PRN PRN Reason: Per Protocol Clopidogrel Bisulfate [Plavix] 75 mg PO DAILY ALPRAZolam [Xanax] 0.5 mg PO Q12H PRN PRN Reason: Anxiety Atorvastatin [Lipitor] 40 mg PO HS 30 Days #30 tab amLODIPine [Norvasc] 5 mg PO HS Discharge Medication List lisinopriL 20 mg PO BID 08/02/19 [History] Clopidogrel Bisulfate [Plavix] 75 mg PO DAILY 03/26/21 [History] ALPRAZolam [Xanax] 0.5 mg PO Q12H PRN 03/01/22 [History] Atorvastatin [Lipitor] 40 mg PO HS 30 Days #30 tab 03/02/22 [Rx] amLODIPine [Norvasc] 5 mg PO HS 09/12/22 [History] Aspirin 325 mg PO DAILY PRN 10/04/22 [History] Follow up Appointment(s)/Referral(s): Wilbur Alvarez MD [STAFF PHYSICIAN] - 1 Week
--- NOTE | 2022-10-05 12:51 | XR ---
EXAMINATION TYPE: XR chest 2V DATE OF EXAM: 10/05/2022 COMPARISON: Chest x-ray one day earlier HISTORY: Line placement. PFO repair. TECHNIQUE: Frontal and lateral views of the chest are obtained. FINDINGS: There is no new suspicious focal air space opacity, pleural effusion, or pneumothorax see n. Mild Cardiomegaly is redemonstrated. Density from patent foramen ovale surgical repair is redemons trated. Retrocardiac opacity redemonstrated is suspicious for moderate to large size hiatal hernia. The osseous structures remain demineralized. No new central line is seen. IMPRESSION: As above. No significant change from one day earlier.
--- NOTE | 2022-10-05 13:43 | US ---
EXAMINATION TYPE: US lower ext pseudo artery RT DATE OF EXAM: 10/05/2022 COMPARISON: NONE CLINICAL HISTORY: 77-year-old female Right groin pain following procedure. EXAM PERFORMED: Grayscale and color Doppler duplex imaging performed of the groin, post cardiac jewell ter to assess for pseudoaneurysm. SIDE PERFORMED: Right Color and Waveform Doppler performed to assess for the presence of pseudoaneurysm; Is there ultrasound evidence of a pseudoaneurysm: No Is there evidence of AV shunting: No Is there a fluid collection present: No IMPRESSION: No sonographic evidence for right inguinal/groin pseudoaneurysm.
== END 2022-10-05 12:56 | disposition home or self-care (01) ==
LOC: CATHCVL 09:09 → 6NMEDSUR 11:22 → CATHCVL 10-05 12:56
PROVIDERS: ATTEND Internal Medicine Interventional Cardiology
DX: Q21.12 Patent foramen ovale (principal)
CPT/HCPCS: 93306; 93580; 93662; 80048 ×2; 83735; 85025; 71046 ×2; 93975; 93926; C1769 ×4; C1894; C1817; C1760; J2250; J0690; J2001; J3010; J1644; Q9967

== ENCOUNTER 2023-05-24 06:49 | Emergency (ER) | payer MEDICARE, OTHER ==
[2023-05-24] MEDS ORDERED: LORazepam 2 MG/ML INJ IV PRN (07:50)
[2023-05-24 08:21] LABS: Basophils % (A) 1 %; Eosinophils # (A) 0.1 k/uL (0-0.7); Eosinophils % (A) 1 %; HCT 41.5 % (34.0-46.0); HGB 13.4 gm/dL (11.4-16.0); Lymphocytes # (A) 1.6 k/uL (1.0-4.8); Lymphocytes % (A) 21 %; MCH 26.7 pg (25.0-35.0); MCHC 32.3 g/dL (31.0-37.0); MCV 82.6 fL (80.0-100.0); Mean Platelet Volume 7.4; Monocytes # (A) 0.4 k/uL (0-1.0); Monocytes % (A) 6 %; Neutrophils # (A) 5.5 k/uL (1.3-7.7); Neutrophils % (A) 71 %; Platelet Count 286 k/uL (150-450); RBC 5.02 m/uL (3.80-5.40); RDW 14.4 % (11.5-15.5); WBC 7.7 k/uL (3.8-10.6)
[2023-05-24 08:32] LABS: ALT 15 U/L (4-34); AST 23 U/L (14-36); African American GFR (CKD) >90 (>60 ml/min/1.73 sqM); Albumin 3.7 g/dL (3.5-5.0); Alkaline Phosphatase 75 U/L (38-126); Anion Gap 7 mmol/L; Blood Urea Nitrogen 26 mg/dL (7-17); Calcium 9.1 mg/dL (8.4-10.2); Carbon Dioxide 27 mmol/L (22-30); Chloride 107 mmol/L (98-107); Glucose 122 mg/dL (74-99); Magnesium 2.1 mg/dL (1.6-2.3); Non-African American GFR(CKD) >90 (>60 ml/min/1.73 sqM); Potassium 3.9 mmol/L (3.5-5.1); Sodium 141 mmol/L (137-145); Total Bilirubin 0.4 mg/dL (0.2-1.3); Total Protein 6.8 g/dL (6.3-8.2)
[2023-05-24 08:33] LABS: Prothrombin Time 10.8 sec (10.0-12.5)
--- NOTE | 2023-05-24 08:43 | XR ---
EXAMINATION TYPE: XR chest 2V DATE OF EXAM: 05/24/2023 COMPARISON: 10/05/2022 INDICATION: Chest pain TECHNIQUE: Frontal and lateral views of the chest are obtained. FINDINGS: The heart size is normal. The pulmonary vasculature is normal. The lungs are clear. Post cardiac surgical changes evident. IMPRESSION: 1. No acute pulmonary process.
--- NOTE | 2023-05-24 08:47 | ED ---
Anxiety HPI <Solitario Jsohi - Last Filed: 05/24/23 17:06> - General Source: patient Mode of arrival: wheelchair <Nneka Redmond - Last Filed: 05/29/23 00:06> - General Chief Complaint: Anxiety Stated Complaint: Panic Attack Time Seen by Provider: 05/24/23 07:05 - History of Present Illness Initial Comments: 77-year-old female with past medical history of CVA, hypertension who presents to the emergency department reporting an anxiety attack. States that over the past 2 weeks she has had multiple anxiety attacks for which she has been hospitalized at [facility] twice. She states that both times reevaluated her heart which was found to be within normal limits and she was discharged home. Last night the patient was up all night with pressure in her chest, heart racing and nausea. She had a Xanax at home for which she took and she states that it helped her symptoms for an hour and a half. Patient arrives and is tearful. States that she cannot go on any longer like this and if she has to, "she is going to ". She denies previous diagnosis of anxiety. Denies homicidal ideations. No other alleviating, precipitating or modifying factors (Nneka Redmond) - Related Data Home Medications: Home Medications Medication Instructions Recorded Confirmed lisinopriL 20 mg PO BID 08/02/19 05/24/23 Clopidogrel Bisulfate [Plavix] 75 mg PO DAILY 03/26/21 05/24/23 amLODIPine [Norvasc] 5 mg PO HS 09/12/22 05/24/23 Aspirin [[facility] Aspirin EC] 81 mg PO DAILY 05/24/23 05/24/23 Previous Rx's Medication Instructions Recorded Atorvastatin [Lipitor] 40 mg PO HS 30 Days #30 tab 03/02/22 ALPRAZolam [Xanax] 0.25 mg PO TID PRN 3 Days #9 tab 05/24/23 Allergies/Adverse Reactions: Allergies Allergy/AdvReac Type Severity Reaction Status Date / Time No Known Allergies Allergy Verified 05/24/23 12:26 Review of Systems ROS Other: All systems not noted in ROS Statement are negative. <Solitario Joshi - Last Filed: 05/24/23 17:06> ROS Other: All systems not noted in ROS Statement are negative. <Nneka Redmond - Last Filed: 05/29/23 00:06> ROS Statement: Those systems with pertinent positive or pertinent negative responses have been documented in the HPI. Past Medical History Past Medical History: CVA/TIA, Hearing Disorder / Deafness, Hypertension Additional Past Medical History / Comment(s): See Dr Alvarez's H&P. Hx stroke and TIA's, some difficulty with balance & walking (has cane & walker as needed) Hx Shingles in 2013. Hx kidney stones. 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 Environmental allergies. Hard of hearing. History of Any Multi-Drug Resistant Organisms: None Reported Past Surgical History: Cholecystectomy, Tubal Ligation Additional Past Surgical History / Comment(s): Bilateral cataract surgery, glaucoma procedure. Past Anesthesia/Blood Transfusion Reactions: No Reported Reaction Additional Past Anesthesia/Blood Transfusion Reaction / Comment(s): Pt received blood at age 18 and had a reaction but cannot recall type of reaction. Past Psychological History: Anxiety Smoking Status: Current every day smoker Past Alcohol Use History: None Reported Past Drug Use History: None Reported - Past Family History Father History Unknown: Yes Family Medical History: No Reported History Mother Family Medical History: Cancer, COPD Additional Family Medical History / Comment(s): Mother was healthy <Nneka Redmond - Last Filed: 05/29/23 00:06> General Exam Limitations: no limitations General appearance: alert, in no apparent distress Head exam: Present: atraumatic, normocephalic, normal inspection Eye exam: Present: normal appearance, PERRL, EOMI. Absent: scleral icterus, conjunctival injection, periorbital swelling ENT exam: Present: normal exam, mucous membranes moist Neck exam: Present: normal inspection. Absent: tenderness, meningismus, lymphadenopathy Respiratory exam: Present: normal lung sounds bilaterally. Absent: respiratory distress, wheezes, rales, rhonchi, stridor Cardiovascular Exam: Present: regular rate, normal rhythm, normal heart sounds. Absent: systolic murmur, diastolic murmur, rubs, gallop, clicks GI/Abdominal exam: Present: soft, normal bowel sounds. Absent: distended, tenderness, guarding, rebound, rigid Extremities exam: Present: normal inspection, full ROM, normal capillary refill. Absent: tenderness, pedal edema, joint swelling, calf tenderness Back exam: Present: normal inspection Neurological exam: Present: alert, oriented X3, CN II-XII intact Psychiatric exam: Present: anxious Skin exam: Present: warm, dry, intact, normal color. Absent: rash <Nneka Redmond - Last Filed: 05/29/23 00:06> Course Vital Signs 05/24/23 05/24/23 05/24/23 06:59 08:23 09:00 Temperature 98 F 97.9 F Pulse Rate 62 62 Pulse Rate [ 62 Radial] Respiratory 18 16 Rate Blood Pressure 129/70 136/73 O2 Sat by Pulse 96 96 Oximetry 05/24/23 05/24/23 05/24/23 10:00 10:56 14:52 Temperature 98 F 98 F 97.9 F Pulse Rate 63 61 61 Pulse Rate [ Radial] Respiratory 16 16 18 Rate Blood Pressure 129/71 128/71 167/76 O2 Sat by Pulse 96 96 96 Oximetry 05/24/23 17:44 Temperature Pulse Rate 66 Pulse Rate [ Radial] Respiratory 18 Rate Blood Pressure 152/77 O2 Sat by Pulse 96 Oximetry Medical Decision Making - Lab Data Result diagrams: 05/24/23 08:00 05/24/23 08:00 <Solitario Joshi - Last Filed: 05/24/23 17:06> - Lab Data Result diagrams: 05/24/23 08:00 05/24/23 08:00 <Nneka Redmond - Last Filed: 05/29/23 00:06> - Medical Decision Making Patient had been medically cleared and was evaluated by EPS. EPS had felt that the patient was safe for discharge but had requested anxiolytic. Patient prescribed Xanax for the next 3 days until she can follow-up with her primary care provider. (Solitario Joshi) Was pt. sent in by a medical professional or institution (, PA, COVER SEAMER, urgent care, hospital, or intermediate...) When possible be specific @ -No Did you speak to anyone other than the patient for history (EMS, parent, family, police, friend...)? What history was obtained from this source @ -No Did you review nursing and triage notes (agree or disagree)? Why? @ -I reviewed and agree with nursing and triage notes Were old charts reviewed (outside hosp., previous admission, EMS record, old EKG, old radiological studies, urgent care reports/EKG's, intermediate records)? Report findings @ -No old charts were reviewed Differential Diagnosis (chest pain, altered mental status, abdominal pain women, abdominal pain men, vaginal bleeding, weakness, fever, dyspnea, syncope, headache, dizziness, GI bleed, back pain, seizure, CVA, palpatations, mental health, musculoskeletal)? @ -Differential Mental Health Depression, anxiety, bipolar, psychosis, schizophrenia, borderline personality, situational depression, adjustment disorder, behavioral disorder, brain tumor, malingering, substance abuse, encephalopathy, medication reaction, dementia, hypothyroidism, degenerative neurologic disorder, lupus.... This is not meant to be all-inclusive list EKG interpreted by me (3pts min.). @ -Yes and demonstrates sinus bradycardia with a rate of 56. TX interval 148. QRS 83. QTC of 418. No acute ST segment elevations or depressions X-rays interpreted by me (1pt min.). @ -Yes and demonstrates no acute process CT interpreted by me (1pt min.). @ -None done U/S interpreted by me (1pt. min.). @ -None done What testing was considered but not performed or refused? (CT, X-rays, U/S, labs)? Why? @ -None What meds were considered but not given or refused? Why? @ -None Did you discuss the management of the patient with other professionals (professionals i.e. , PA, COVER SEAMER, lab, RT, psych nurse, medical social worker, credit adjuster, teacher, animal park code enforcement officer, catalytic case operator)? Give summary @ -Spoke with EPS will evaluate the patient Was smoking cessation discussed for >3mins.? @ -No Was critical care preformed (if so, how long)? @ -No Were there social determinants of health that impacted care today? How? (Homelessness, low income, unemployed, alcoholism, drug addiction, transportation, low edu. Level, literacy, decrease access to med. care, detention, rehab)? @ -No Was there de-escalation of care discussed even if they declined (Discuss DNR or withdrawal of care, Hospice)? DNR status @ -No What co-morbidities impacted this encounter? (DM, HTN, Smoking, COPD, CAD, Cancer, CVA, ARF, Chemo, Hep., AIDS, mental health diagnosis, sleep apnea, morbid obesity)? @ -None Was patient admitted / discharged? Hospital course, mention meds given and route, prescriptions, significant lab abnormalities, going to OR and other pertinent info. @ -Upon arrival patient was placed into room 30. Thorough history and physical exam is performed. Cardiac workup was pursued which was negative. Patient will see EPS at this time. She will be signed out to Dr. Joshi Undiagnosed new problem with uncertain prognosis? @ -Yes Drug Therapy requiring intensive monitoring for toxicity (Heparin, Nitro, Insulin, Cardizem)? @ -No Were any procedures done? @ -No Diagnosis/symptom? @ -Acute palpitations, suspected panic attack Acute, or Chronic, or Acute on Chronic? @ -Acute, recurrent Uncomplicated (without systemic symptoms) or Complicated (systemic symptoms)? @ -Complicated Side effects of treatment? @ -No Exacerbation, Progression, or Severe Exacerbation? @ -Yes, patient has had several episodes of similar Poses a threat to life or bodily function? How? (Chest pain, [place], [place], pneumonia, PE, COPD, DKA, ARF, appy, cholecystitis, CVA, Diverticulitis, Homicidal, Suicidal, threat to staff... and all critical care pts) @ -No (Nneka Redmond) - Lab Data Lab Results 05/24/23 05/24/23 05/24/23 Range/Units 08:00 08:00 08:00 WBC 7.7 (3.8-10.6) k/uL RBC 5.02 (3.80-5.40) m/uL Hgb 13.4 (11.4-16.0) gm/dL Hct 41.5 (34.0-46.0) % MCV 82.6 (80.0-100.0) fL MCH 26.7 (25.0-35.0) pg MCHC 32.3 (31.0-37.0) g/dL RDW 14.4 (11.5-15.5) % Plt Count 286 (150-450) k/uL MPV 7.4 Neutrophils % 71 % Lymphocytes % 21 % Monocytes % 6 % Eosinophils % 1 % Basophils % 1 % Neutrophils # 5.5 (1.3-7.7) k/uL Lymphocytes # 1.6 (1.0-4.8) k/uL Monocytes # 0.4 (0-1.0) k/uL Eosinophils # 0.1 (0-0.7) k/uL Basophils # 0.0 (0-0.2) k/uL PT 10.8 (10.0-12.5) sec INR 1.0 (<1.2) APTT 25.0 (22.0-30.0) sec Sodium 141 (137-145) mmol/L Potassium 3.9 (3.5-5.1) mmol/L Chloride 107 (98-107) mmol/L Carbon Dioxide 27 (22-30) mmol/L Anion Gap 7 mmol/L BUN 26 H (7-17) mg/dL Creatinine 0.55 (0.52-1.04) mg/dL Est GFR (CKD-EPI)AfAm >90 (>60 ml/min/1.73 sqM) Est GFR (CKD-EPI)NonAf >90 (>60 ml/min/1.73 sqM) Glucose 122 H (74-99) mg/dL Calcium 9.1 (8.4-10.2) mg/dL Magnesium 2.1 (1.6-2.3) mg/dL Total Bilirubin 0.4 (0.2-1.3) mg/dL AST 23 (14-36) U/L ALT 15 (4-34) U/L Alkaline Phosphatase 75 (38-126) U/L Troponin I (0.000-0.034) ng/mL Total Protein 6.8 (6.3-8.2) g/dL Albumin 3.7 (3.5-5.0) g/dL 05/24/23 Range/Units 08:00 WBC (3.8-10.6) k/uL RBC (3.80-5.40) m/uL Hgb (11.4-16.0) gm/dL Hct (34.0-46.0) % MCV (80.0-100.0) fL MCH (25.0-35.0) pg MCHC (31.0-37.0) g/dL RDW (11.5-15.5) % Plt Count (150-450) k/uL MPV Neutrophils % % Lymphocytes % % Monocytes % % Eosinophils % % Basophils % % Neutrophils # (1.3-7.7) k/uL Lymphocytes # (1.0-4.8) k/uL Monocytes # (0-1.0) k/uL Eosinophils # (0-0.7) k/uL Basophils # (0-0.2) k/uL PT (10.0-12.5) sec INR (<1.2) APTT (22.0-30.0) sec Sodium (137-145) mmol/L Potassium (3.5-5.1) mmol/L Chloride (98-107) mmol/L Carbon Dioxide (22-30) mmol/L Anion Gap mmol/L BUN (7-17) mg/dL Creatinine (0.52-1.04) mg/dL Est GFR (CKD-EPI)AfAm (>60 ml/min/1.73 sqM) Est GFR (CKD-EPI)NonAf (>60 ml/min/1.73 sqM) Glucose (74-99) mg/dL Calcium (8.4-10.2) mg/dL Magnesium (1.6-2.3) mg/dL Total Bilirubin (0.2-1.3) mg/dL AST (14-36) U/L ALT (4-34) U/L Alkaline Phosphatase (38-126) U/L Troponin I <0.012 (0.000-0.034) ng/mL Total Protein (6.3-8.2) g/dL Albumin (3.5-5.0) g/dL Disposition Is patient prescribed a controlled substance at d/c from ED?: No Time of Disposition: 17:10 <Solitario Joshi - Last Filed: 05/24/23 17:06> <Nneka Redmond - Last Filed: 05/29/23 00:06> Clinical Impression: Acute anxiety Disposition: HOME SELF-CARE Condition: Fair Instructions (If sedation given, give patient instructions): Generalized Anxiety Disorder (ED) Prescriptions: ALPRAZolam [Xanax] 0.25 mg PO TID PRN 3 Days #9 tab PRN Reason: Anxiety Referrals: Nonstaff,Physician [Primary Care Provider] - 1-2 days
[2023-05-24 15:16] VITALS: RESP 18; TEMP 97.9
[2023-05-24 17:56] VITALS: BP 152/77; PULSE 66
== END 2023-05-24 17:45 | disposition home or self-care (01) ==
LOC: EC 06:49
DX: F41.9 Anxiety disorder, unspecified (principal); R00.1 Bradycardia, unspecified; I10 Essential (primary) hypertension; F17.200 Nicotine dependence, unspecified, uncomplicated; Z90.49 Acquired absence of other specified parts of digestive tract; Z86.73 Personal history of transient ischemic attack (TIA), and cerebral infarction without residual deficits; Z79.02 Long term (current) use of antithrombotics/antiplatelets; Z79.82 Long term (current) use of aspirin; Z79.899 Other long term (current) drug therapy
CPT/HCPCS: 82075; 36415; 93005; 80053; 83735; 84484; 85025; 85610; 85730; 71046; 99284; 96374; J2060

== ENCOUNTER 2023-08-27 02:50 | Inpatient (IN) | payer MEDICARE, OTHER ==
[2023-08-27 04:25] LABS: Basophils # (A) 0.1 k/uL (0-0.2); Basophils % (A) 1 %; Eosinophils # (A) 0.1 k/uL (0-0.7); Eosinophils % (A) 1 %; HGB 14.7 gm/dL (11.4-16.0); Lymphocytes # (A) 0.6 k/uL (1.0-4.8); Lymphocytes % (A) 4 %; MCH 27.5 pg (25.0-35.0); MCHC 31.9 g/dL (31.0-37.0); MCV 86.2 fL (80.0-100.0); Mean Platelet Volume 7.2; Monocytes # (A) 0.5 k/uL (0-1.0); Monocytes % (A) 3 %; Neutrophils # (A) 14.8 k/uL (1.3-7.7); Neutrophils % (A) 92 %; Platelet Count 283 k/uL (150-450); RBC 5.34 m/uL (3.80-5.40); RDW 13.9 % (11.5-15.5); WBC 16.1 k/uL (3.8-10.6)
[2023-08-27 04:30] LABS: Appearance,Urine Cloudy (Clear); Bacteria,Urine Rare /hpf; Bilirubin,Urine Negative (Negative); Blood,Urine Small (Negative); Color,Urine Colorless; Glucose,Urine (UA) Trace (Negative); Hyaline Casts,Urine 1 /lpf (0-2); Ketones,Urine Negative (Negative); Leukocyte Esterase,Urine Large (Negative); Mucus,Urine Rare /hpf; Nitrite,Urine Negative (Negative); PH, Urine 7.5 (5.0-8.0); Protein,Urine Trace (Negative); RBC,Urine 48 /hpf (0-5); Squamous Epithelial Cell,Urine 3 /hpf (0-4); Urobilinogen,Urine <2.0 mg/dL (<2.0); WBC,Urine 157 /hpf (0-5)
[2023-08-27 04:37] LABS: ALT 12 U/L (4-34); AST 24 U/L (14-36); African American GFR (CKD) >90 (>60 ml/min/1.73 sqM); Albumin 4.1 g/dL (3.5-5.0); Alkaline Phosphatase 104 U/L (38-126); Amylase 47 U/L (30-110); Anion Gap 4 mmol/L; Blood Urea Nitrogen 20 mg/dL (7-17); Calcium 9.3 mg/dL (8.4-10.2); Carbon Dioxide 29 mmol/L (22-30); Chloride 107 mmol/L (98-107); Glucose 149 mg/dL (74-99); Lipase 73 U/L (23-300); Non-African American GFR(CKD) 90 (>60 ml/min/1.73 sqM); Potassium 3.8 mmol/L (3.5-5.1); Sodium 140 mmol/L (137-145); Total Bilirubin 0.4 mg/dL (0.2-1.3); Total Protein 7.7 g/dL (6.3-8.2)
--- NOTE | 2023-08-27 07:19 | CT ---
EXAM: CT Abdomen and Pelvis Without Intravenous Contrast CLINICAL HISTORY: ITS.REASON CT Reason: L flank pain, stone protocol TECHNIQUE: Axial computed tomography images of the abdomen and pelvis without intravenous contrast. CTDI is 9.8 mGy and DLP is 538.1 mGy-cm. This CT exam was performed using one or more of the following dose reduction techniques: automated exposure control, adjustment of the mA and/or kV according to patient size, and/or use of iterative reconstruction technique. COMPARISON: No relevant prior studies available. FINDINGS: Lung bases: Small hazy nodules in the right lower lobe and small focus of consolidation or atelectasis. Probable mucus plugging in the right lower lobe airways. Mediastinum: Large hiatal hernia partially visualized. ABDOMEN: Liver: Unremarkable. Gallbladder and bile ducts: Unremarkable. No calcified stones. No ductal dilation. Pancreas: Unremarkable. No ductal dilation. Spleen: Unremarkable. No splenomegaly. Adrenals: 3.5 cm right adrenal low-density lesion, -4 HU. Consistent with adenoma. Kidneys and ureters: 11 mm obstructing calculus in the left distal ureter. Moderate left hydroureteronephrosis and perinephric stranding. Small nonobstructing bilateral renal calculi. Stomach and bowel: Colonic diverticulosis. No obstruction. No mucosal thickening. PELVIS: Appendix: Normal appendix. Bladder: Unremarkable. No stones. Reproductive: Unremarkable as visualized. ABDOMEN and PELVIS: Intraperitoneal space: Unremarkable. No free air. No significant fluid collection. Bones/joints: Degenerative changes of the spine. Mild anterolisthesis of L3 on L4 and L4 on L5. No acute fracture. No dislocation. Soft tissues: Unremarkable. Vasculature: Marked atherosclerotic calcifications of the aorta and branches. Ectatic aorta. No abdominal aortic aneurysm. Lymph nodes: Unremarkable. No enlarged lymph nodes. IMPRESSION: 1. 11 mm obstructing calculus in the left distal ureter. Moderate left hydroureteronephrosis and perinephric stranding. 2. Small nonobstructing bilateral renal calculi. 3. 3.5 cm right adrenal low-density lesion, -4 HU. Consistent with adenoma. 4. Large hiatal hernia partially visualized. 5. Colonic diverticulosis. 6. Small hazy nodules in the right lower lobe and small focus of consolidation or atelectasis. Probable mucus plugging in the right lower lobe airways. May represent infectious/inflammatory process, aspiration. Consider follow-up.
--- NOTE | 2023-08-27 07:19 | ED ---
Abdominal Pain HPI - General Chief Complaint: Abdominal Pain Stated Complaint: Left Flank Pain Time Seen by Provider: 08/27/23 03:46 Source: EMS Mode of arrival: EMS - History of Present Illness Initial Comments: This patient is 77-year-old woman brought evaluation of left flank pain that radiates to the left groin area. She states that it is similar to previous episode of kidney stone. Pain started last night and worsening. She has frequent urge to urinate. Patient has not noted fever or chills. No chest pain, dyspnea, palpitations. MD Complaint: flank pain -: hour(s) Location: L flank Radiation: LLQ Severity: severe Quality: sharp Consistency: constant Improves With: nothing Worsens With: nothing Associated Symptoms: denies other symptoms - Related Data Home Medications Medication Instructions Recorded Confirmed Clopidogrel Bisulfate [Plavix] 75 mg PO DAILY 03/26/21 08/27/23 amLODIPine [Norvasc] 5 mg PO HS 09/12/22 08/27/23 Aspirin [[place] Aspirin EC] 81 mg PO DAILY 05/24/23 08/27/23 ALPRAZolam [Xanax] 0.5 mg PO DAILY PRN 08/27/23 08/27/23 ALPRAZolam [Xanax] 0.5 mg PO HS 08/27/23 08/27/23 lisinopriL [Zestril] 20 mg PO BID 08/27/23 08/27/23 Previous Rx's Medication Instructions Recorded HYDROcodone/APAP 5-325MG [[place] 1 tab PO Q4HR PRN 3 Days #18 tab 08/27/23 5-325] Ondansetron Odt [Zofran ODT] 4 mg PO Q8HR PRN #10 tab 08/27/23 Tamsulosin [Flomax] 0.4 mg PO DAILY #14 cap 08/27/23 Cefuroxime [Ceftin] 250 mg PO BID 3 Days #6 tab 08/29/23 Allergies Allergy/AdvReac Type Severity Reaction Status Date / Time No Known Allergies Allergy Verified 08/27/23 11:39 Review of Systems ROS Statement: Those systems with pertinent positive or pertinent negative responses have been documented in the HPI. ROS Other: All systems not noted in ROS Statement are negative. Constitutional: Denies: fever, chills, weakness Respiratory: Denies: cough, dyspnea Cardiovascular: Denies: chest pain, palpitations, edema Gastrointestinal: Reports: abdominal pain. Denies: vomiting, diarrhea, constipation Genitourinary: Reports: frequency. Denies: dysuria, hematuria Musculoskeletal: Denies: back pain Skin: Denies: rash Neurological: Denies: headache, weakness, confusion Past Medical History Past Medical History: CVA/TIA, Hearing Disorder / Deafness, Hypertension Additional Past Medical History / Comment(s): See Dr Alvarez's H&P. Hx stroke and TIA's, some difficulty with balance & walking (has cane & walker as needed) Hx Shingles in 2013. Hx kidney stones. 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 Environmental allergies. Hard of hearing. History of Any Multi-Drug Resistant Organisms: None Reported Past Surgical History: Cholecystectomy, Tubal Ligation Additional Past Surgical History / Comment(s): Bilateral cataract surgery, glaucoma procedure. Past Anesthesia/Blood Transfusion Reactions: No Reported Reaction Additional Past Anesthesia/Blood Transfusion Reaction / Comment(s): Pt received blood at age 18 and had a reaction but cannot recall type of reaction. Past Psychological History: Anxiety Smoking Status: Current every day smoker Past Alcohol Use History: None Reported Past Drug Use History: None Reported - Past Family History Father History Unknown: Yes Family Medical History: No Reported History Mother Family Medical History: Cancer, COPD Additional Family Medical History / Comment(s): Mother was healthy General Exam General appearance: alert, in no apparent distress Head exam: Present: atraumatic, normocephalic Eye exam: Present: normal appearance. Absent: scleral icterus, conjunctival i njection Neck exam: Present: normal inspection Respiratory exam: Present: normal lung sounds bilaterally. Absent: respiratory distress, wheezes, rales, rhonchi, stridor Cardiovascular Exam: Present: regular rate, normal rhythm, normal heart sounds. Absent: systolic murmur, diastolic murmur, rubs, gallop GI/Abdominal exam: Present: soft. Absent: distended, tenderness, guarding, rebound, rigid, mass Extremities exam: Present: normal inspection, normal capillary refill. Absent: pedal edema, calf tenderness Back exam: Present: normal inspection, CVA tenderness (L). Absent: CVA tenderness (R) Neurological exam: Present: alert Skin exam: Present: warm, dry, intact, normal color. Absent: rash Course Vital Signs 08/27/23 08/27/23 08/27/23 02:54 06:01 08:24 Temperature 98.4 F Pulse Rate 82 80 75 Pulse Rate [ Pulse Oximetery ] Respiratory 18 16 18 Rate Blood Pressure 158/82 171/96 135/80 Blood Pressure [Right Arm] O2 Sat by Pulse 96 95 96 Oximetry 08/27/23 08/27/23 08/27/23 11:32 15:00 17:40 Temperature 98.4 F Pulse Rate 77 73 69 Pulse Rate [ Pulse Oximetery ] Respiratory 18 18 18 Rate Blood Pressure 155/90 155/80 Blood Pressure [Right Arm] O2 Sat by Pulse 95 96 95 Oximetry 08/27/23 17:59 Temperature 98.3 F Pulse Rate Pulse Rate [ 78 Pulse Oximetery ] Respiratory 15 Rate Blood Pressure Blood Pressure 167/67 [Right Arm] O2 Sat by Pulse 94 L Oximetry Medical Decision Making - Medical Decision Making Was pt. sent in by a medical professional or institution (, PA, EVENT ORGANIZER, urgent care, hospital, or fdc...) When possible be specific @ -[No] Did you speak to anyone other than the patient for history (EMS, parent, family, police, friend...)? What history was obtained from this source @ -[No] Did you review nursing and triage notes (agree or disagree)? Why? @ -[I reviewed and agree with nursing and triage notes] Were old charts reviewed (outside hosp., previous admission, EMS record, old EKG, old radiological studies, urgent care reports/EKG's, fdc records)? Report findings @ -[No old charts were reviewed] Differential Diagnosis (chest pain, altered mental status, abdominal pain women, abdominal pain men, vaginal bleeding, weakness, fever, dyspnea, syncope, headache, dizziness, GI bleed, back pain, seizure, CVA, palpatations, mental health, musculoskeletal)? @ -[Differential Abdominal Pain Women: Appendicitis, Cholecystitis, diverticulosis, ischemic bowel, pancreatitis, hepatitis, UTI, gastroenteritis, AAA, incarcerated hernia, bowel obstruction, constipation, inflammatory bowel, hepatitis, peptic ulcer disease, splenic infarction, perforated viscus, vulvitis, ovarian torsion, PID, kidney stone, placenta abruption, this is not meant to be an all-inclusive list EKG interpreted by me (3pts min.). @ -[As above] X-rays interpreted by me (1pt min.). @ -[None done] CT interpreted by me (1pt min.). @ -[None done] U/S interpreted by me (1pt. min.). @ -[None done] What testing was considered but not performed or refused? (CT, X-rays, U/S, labs)? Why? @ -[None] What meds were considered but not given or refused? Why? @ -[None] Did you discuss the management of the patient with other professionals (professionals i.e. , PA, EVENT ORGANIZER, lab, RT, psych nurse, social media marketing specialist, product transfer pumper, teacher, chief quality officer, director of casework)? Give summary @ -[No] Was smoking cessation discussed for >3mins.? @ -[No] Was critical care preformed (if so, how long)? @ -[No] Were there social determinants of health that impacted care today? How? (Homelessness, low income, unemployed, alcoholism, drug addiction, transport ation, low edu. Level, literacy, decrease access to med. care, detention, rehab)? @ -[No] Was there de-escalation of care discussed even if they declined (Discuss DNR or withdrawal of care, Hospice)? DNR status @ -[No] What co-morbidities impacted this encounter? (DM, HTN, Smoking, COPD, CAD, Cancer, CVA, ARF, Chemo, Hep., AIDS, mental health diagnosis, sleep apnea, morbid obesity)? @ -[None] Was patient admitted / discharged? Hospital course, mention meds given and route, prescriptions, significant lab abnormalities, going to OR and other pertinent info. @ -[Patient is 77-year-old woman who was pending CT scan at the time of shift change. Subsequent review of the record reveals that the patient was admitted due to large stone and for symptom control. Undiagnosed new problem with uncertain prognosis? @ -[No] Drug Therapy requiring intensive monitoring for toxicity (Heparin, Nitro, Insul in, Cardizem)? @ -[No] Were any procedures done? @ -[No] Diagnosis/symptom? @ -[Kidney stone Acute, or Chronic, or Acute on Chronic? @ -[Acute Uncomplicated (without systemic symptoms) or Complicated (systemic symptoms)? @ -[default] Side effects of treatment? @ -[No] Exacerbation, Progression, or Severe Exacerbation? @ -[No] Poses a threat to life or bodily function? How? (Chest pain, [place], [place], pneumonia, PE, COPD, DKA, ARF, appy, cholecystitis, CVA, Diverticulitis, Homicidal, Suicidal, threat to staff... and all critical care pts) @ -[No] - Lab Data Result diagrams: 08/28/23 06:05 08/28/23 06:05 Lab Results 08/27/23 08/27/23 08/27/23 Range/Units 04:10 04:10 04:10 WBC 16.1 H (3.8-10.6) k/uL RBC 5.34 (3.80-5.40) m/uL Hgb 14.7 (11.4-16.0) gm/dL Hct 46.0 (34.0-46.0) % MCV 86.2 (80.0-100.0) fL MCH 27.5 (25.0-35.0) pg MCHC 31.9 (31.0-37.0) g/dL RDW 13.9 (11.5-15.5) % Plt Count 283 (150-450) k/uL MPV 7.2 Neutrophils % 92 % Lymphocytes % 4 % Monocytes % 3 % Eosinophils % 1 % Basophils % 1 % Neutrophils # 14.8 H (1.3-7.7) k/uL Lymphocytes # 0.6 L (1.0-4.8) k/uL Monocytes # 0.5 (0-1.0) k/uL Eosinophils # 0.1 (0-0.7) k/uL Basophils # 0.1 (0-0.2) k/uL Sodium 140 (137-145) mmol/L Potassium 3.8 (3.5-5.1) mmol/L Chloride 107 (98-107) mmol/L Carbon Dioxide 29 (22-30) mmol/L Anion Gap 4 mmol/L BUN 20 H (7-17) mg/dL Creatinine 0.60 (0.52-1.04) mg/dL Est GFR (CKD-EPI)AfAm >90 (>60 ml/min/1.73 sqM) Est GFR (CKD-EPI)NonAf 90 (>60 ml/min/1.73 sqM) Glucose 149 H (74-99) mg/dL Calcium 9.3 (8.4-10.2) mg/dL Total Bilirubin 0.4 (0.2-1.3) mg/dL AST 24 (14-36) U/L ALT 12 (4-34) U/L Alkaline Phosphatase 104 (38-126) U/L Total Protein 7.7 (6.3-8.2) g/dL Albumin 4.1 (3.5-5.0) g/dL Amylase 47 (30-110) U/L Lipase 73 (23-300) U/L Urine Color Colorless Urine Appearance Cloudy H (Clear) Urine pH 7.5 (5.0-8.0) Ur Specific [place] 1.010 (1.001-1.035) Urine Protein Trace H (Negative) Urine Glucose (UA) Trace H (Negative) Urine Ketones Negative (Negative) Urine Blood Small H (Negative) Urine Nitrite Negative (Negative) Urine Bilirubin Negative (Negative) Urine Urobilinogen <2.0 (<2.0) mg/dL Ur Leukocyte Esterase Large H (Negative) Urine RBC 48 H (0-5) /hpf Urine WBC 157 H (0-5) /hpf Ur Squamous Epith Cells 3 (0-4) /hpf Urine Bacteria Rare H (None) /hpf Hyaline Casts 1 (0-2) /lpf Urine Mucus Rare H (None) /hpf Disposition Clinical Impression: Kidney stone Disposition: HOME SELF-CARE Condition: Good Is patient prescribed a controlled substance at d/c from ED?: No
[2023-08-27] MEDS: lisinopriL 20 MG TAB PO STA (08:54)
[2023-08-27] MEDS ORDERED: MORPHINE SULFATE 4 MG/ML SYRINGE IV PRN ×2 (08:55→13:56)
[2023-08-27] MEDS: SODIUM CHLORIDE 0.9% 500 ML 500 ML IV STA (10:04)
[2023-08-27] MEDS: SODIUM CHLORIDE 0.9% 1,000 ML IV STA (10:04)
[2023-08-27] MEDS: KETOROLAC 15 MG/ML 1 ML VIAL IVP STA (10:07)
[2023-08-27] MEDS: MORPHINE SULFATE 4 MG/ML SYRINGE IVP STA (10:08)
[2023-08-27] MEDS: ONDANSETRON 4 MG/2 ML VIAL IVP STA (10:08)
--- NOTE | 2023-08-27 12:36 | P.HPIM ---
History of Present Illness H&P Date: 08/27/23 History of present illness; patient 77-year-old lady with past medical significant for hypertension, chronic neck pain and CVA, brought to the ER for left groin pain. Patient stated that she was all right 2 days ago and started having left flank pain that started from the back and went all the way to her left groin. Pain was intermittent, sharp, no aggravating or relieving factors associated with this pain. There was no complaint of fever or chills. Patient pain resolved on its own. This morning this pain presented again and it was much more severe. There was no complaint nausea or vomiting. No complaint of lightheaded or dizziness. There was no complaint of chest pain or shortness of breath. Because of this left flank pain, patient presented to the ER Initial lab work done in the ER showed WBC 16.1, hemoglobin 14.7, platelet count 283, sodium 140, potassium 3.8, BUN 20, creatinine 0.60, glucose 149, AST 24, ALT 12, UA showed large amount of leukocyte E[place]ace, WBC 157 Abdominal pelvis done showed 11 mm obstructing calculus in the left distal u reter Patient admitted to internal medicine service REVIEW OF SYSTEMS: CONSTITUTIONAL: No fever, no malaise, no fatigue. HEENT: No recent visual problems or hearing problems. Denied any sore throat. CARDIOVASCULAR: No chest pain, orthopnea, PND, no palpitations, no syncope. PULMONARY: No shortness of breath, no cough, no hemoptysis. GASTROINTESTINAL: As mentioned above NEUROLOGICAL: No headaches, no weakness, no numbness. HEMATOLOGICAL: Denies any bleeding or petechiae. GENITOURINARY: Denies any burning micturition, frequency, or urgency. MUSCULOSKELETAL/RHEUMATOLOGICAL: Denies any joint pain, swelling, or any muscle pain. ENDOCRINE: Denies any polyuria or polydipsia. The rest of the 14-point review of systems is negative. PHYSICAL EXAMINATION: GENERAL: The patient is alert and oriented x3, not in any acute distress. Well developed, well nourished. HEENT: Pupils are round and equally reacting to light. EOMI. No scleral icterus. No conjunctival pallor. Normocephalic, atraumatic. No pharyngeal erythema. No thyromegaly. CARDIOVASCULAR: S1 and S2 present. No murmurs, rubs, or gallops. PULMONARY: Chest is clear to auscultation, no wheezing or crackles. ABDOMEN: Soft, nontender, nondistended, normoactive bowel sounds. No palpable organomegaly. MUSCULOSKELETAL: No joint swelling or deformity. EXTREMITIES: No cyanosis, clubbing, or pedal edema. NEUROLOGICAL: Gross neurological examination did not reveal any focal deficits. SKIN: No rashes. Assessment and plan Left ureteric calculus Hypertension History of CVA Monitor vital signs Monitor CBC Monitor CMP Continue telemetry monitoring Continue IV fluid continue pain management Start IV Rocephin Added Flomax Resume home meds Hold blood pressure medications for now Consult urology Labs and medication were reviewed.. Continue same treatment. Continue with symptomatic treatment. Resume home medication. Monitor labs and vitals. DVT and GI prophylaxis. Further recommendations as per clinical course of the patient Dictation was produced using [employer] dictation software. please excuse any grammatical, word or spelling errors. Past Medical History Past Medical History: CVA/TIA, Hearing Disorder / Deafness, Hypertension Additional Past Medical History / Comment(s): See Dr Alvarez's H&P. Hx stroke and TIA's, some difficulty with balance & walking (has cane & walker as needed) Hx Shingles in 2013. Hx kidney stones. 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 Environmental allergies. Hard of hearing. History of Any Multi-Drug Resistant Organisms: None Reported Past Surgical History: Cholecystectomy, Tubal Ligation Additional Past Surgical History / Comment(s): Bilateral cataract surgery, glaucoma procedure. Past Anesthesia/Blood Transfusion Reactions: No Reported Reaction Additional Past Anesthesia/Blood Transfusion Reaction / Comment(s): Pt received blood at age 18 and had a reaction but cannot recall type of reaction. Past Psychological History: Anxiety Smoking Status: Current every day smoker Past Alcohol Use History: None Reported Past Drug Use History: None Reported - Past Family History Father History Unknown: Yes Family Medical History: No Reported History Mother Family Medical History: Cancer, COPD Additional Family Medical History / Comment(s): Mother was healthy Medications and Allergies Home Medications Medication Instructions Recorded Confirmed Type Clopidogrel Bisulfate [Plavix] 75 mg PO DAILY 03/26/21 08/27/23 History amLODIPine [Norvasc] 5 mg PO HS 09/12/22 08/27/23 History Aspirin [[place] Aspirin EC] 81 mg PO DAILY 05/24/23 08/27/23 History ALPRAZolam [Xanax] 0.5 mg PO DAILY PRN 08/27/23 08/27/23 History ALPRAZolam [Xanax] 0.5 mg PO HS 08/27/23 08/27/23 History HYDROcodone/APAP 5-325MG [[place] 1 tab PO Q4HR PRN 3 Days #18 tab 08/27/23 Rx 5-325] Ondansetron Odt [Zofran ODT] 4 mg PO Q8HR PRN #10 tab 08/27/23 Rx Tamsulosin [Flomax] 0.4 mg PO DAILY #14 cap 08/27/23 Rx lisinopriL [Zestril] 20 mg PO BID 08/27/23 08/27/23 History Allergies Allergy/AdvReac Type Severity Reaction Status Date / Time No Known Allergies Allergy Verified 08/27/23 11:39 Physical Exam Vitals: Vital Signs Temp Pulse Resp BP Pulse Ox 08/27/23 11:32 77 18 155/90 95 08/27/23 08:24 75 18 135/80 96 08/27/23 06:01 80 16 171/96 95 08/27/23 02:54 98.4 F 82 18 158/82 96 Intake and Output 08/26/23 08/27/23 08/27/23 22:59 06:59 14:59 Other: Weight 72.575 kg Results CBC & Chem 7: 08/27/23 04:10 08/27/23 04:10 Labs: Abnormal Lab Results - Last 24 Hours (Table) 08/27/23 08/27/23 08/27/23 Range/Units 04:10 04:10 04:10 WBC 16.1 H (3.8-10.6) k/uL Neutrophils # 14.8 H (1.3-7.7) k/uL Lymphocytes # 0.6 L (1.0-4.8) k/uL BUN 20 H (7-17) mg/dL Glucose 149 H (74-99) mg/dL Urine Appearance Cloudy H (Clear) Urine Protein Trace H (Negative) Urine Glucose (UA) Trace H (Negative) Urine Blood Small H (Negative) Ur Leukocyte Esterase Large H (Negative) Urine RBC 48 H (0-5) /hpf Urine WBC 157 H (0-5) /hpf Urine Bacteria Rare H (None) /hpf Urine Mucus Rare H (None) /hpf
[2023-08-27] MEDS ORDERED: NALOXONE 0.4 MG/ML 1 ML VIAL IV PRN ×3 (13:50→13:56)
[2023-08-27] MEDS ORDERED: MAG HYDROX/AL HYDROX/SIMETH 30 ML CUP PO PRN (13:52)
[2023-08-27] MEDS ORDERED: ACETAMINOPHEN TAB 325 MG TAB PO PRN (13:52)
--- NOTE | 2023-08-27 13:53 | P.GSCN ---
History of Present Illness Consult date: 08/27/23 History of present illness: 77 yo female with a history of stones comes to the hospital with a 24 hour history of left sided abdominal pain. She was evaluated in the er and found to have an 11mm distal left ureteral stone with hydro. SHe has a mild elevation in her wbc at 16. She is afebrile. Her urine is inflammed. Her cr is nl at 0.6 Her vss. She has always passed her stones. she is comfortable now Review of Systems All systems: negative - Constitutional Denies fever, Denies weight loss - EENT Eyes: denies blurred vision Ears, nose, mouth and throat: Denies dysphagia - Cardiovascular Denies chest pain, Denies shortness of breath - Respiratory Denies cough, Denies 7 - Gastrointestinal Reports as per HPI - Genitourinary Genitourinary: Denies dysuria, Denies hematuria - Integumentary Denies rash, Denies unusual bruising - Neurological Denies headaches, Denies syncope - Hematologic/Lymphatic Denies easy bleeding, Denies easy bruising Past Medical History Past Medical History: CVA/TIA, Hearing Disorder / Deafness, Hypertension Additional Past Medical History / Comment(s): See Dr Alvarez's H&P. Hx stroke and TIA's, some difficulty with balance & walking (has cane & walker as needed) Hx Shingles in 2013. Hx kidney stones. 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 Environmental allergies. Hard of hearing. History of Any Multi-Drug Resistant Organisms: None Reported Past Surgical History: Cholecystectomy, Tubal Ligation Additional Past Surgical History / Comment(s): Bilateral cataract surgery, glau coma procedure. Past Anesthesia/Blood Transfusion Reactions: No Reported Reaction Additional Past Anesthesia/Blood Transfusion Reaction / Comm: Pt received blood at age 18 and had a reaction but cannot recall type of reaction. Past Psychological History: Anxiety Smoking Status: Current every day smoker Past Alcohol Use History: None Reported Past Drug Use History: None Reported - Past Family History Father History Unknown: Yes Family Medical History: No Reported History Mother Family Medical History: Cancer, COPD Additional Family Medical History / Comment(s): Mother was healthy Medications and Allergies Home Medications Medication Instructions Recorded Confirmed Type Clopidogrel Bisulfate [Plavix] 75 mg PO DAILY 03/26/21 08/27/23 History amLODIPine [Norvasc] 5 mg PO HS 09/12/22 08/27/23 History Aspirin [[place] Aspirin EC] 81 mg PO DAILY 05/24/23 08/27/23 History ALPRAZolam [Xanax] 0.5 mg PO DAILY PRN 08/27/23 08/27/23 History ALPRAZolam [Xanax] 0.5 mg PO HS 08/27/23 08/27/23 History HYDROcodone/APAP 5-325MG [[place] 1 tab PO Q4HR PRN 3 Days #18 tab 08/27/23 Rx 5-325] Ondansetron Odt [Zofran ODT] 4 mg PO Q8HR PRN #10 tab 08/27/23 Rx Tamsulosin [Flomax] 0.4 mg PO DAILY #14 cap 08/27/23 Rx lisinopriL [Zestril] 20 mg PO BID 08/27/23 08/27/23 History Allergies Allergy/AdvReac Type Severity Reaction Status Date / Time No Known Allergies Allergy Verified 08/27/23 11:39 Surgical - Exam Vital Signs Temp Pulse Resp BP Pulse Ox 98.4 F 82 18 158/82 96 08/27/23 02:54 08/27/23 02:54 08/27/23 02:54 08/27/23 02:54 08/27/23 02:54 - General well developed, well nourished, no distress - Eyes normal ocular movement, no icteric - ENT no hearing loss, no congestion - Neck no masses, trachea midline - Respiratory normal respiratory effort, clear to auscultation - Abdomen Abdomen: soft, non tender, no guarding, no rigid, no rebound - Integumentary no rash, no abnormal pigmentation - Neurologic no disoriented, no combative - Psychiatric oriented to time, oriented to person, oriented to place, speech is normal, memory intact Results - Labs 08/27/23 04:10 08/27/23 04:10 Abnormal Lab Results - Last 24 Hours (Table) 08/27/23 08/27/23 08/27/23 Range/Units 04:10 04:10 04:10 WBC 16.1 H (3.8-10.6) k/uL Neutrophils # 14.8 H (1.3-7.7) k/uL Lymphocytes # 0.6 L (1.0-4.8) k/uL BUN 20 H (7-17) mg/dL Glucose 149 H (74-99) mg/dL Urine Appearance Cloudy H (Clear) Urine Protein Trace H (Negative) Urine Glucose (UA) Trace H (Negative) Urine Blood Small H (Negative) Ur Leukocyte Esterase Large H (Negative) Urine RBC 48 H (0-5) /hpf Urine WBC 157 H (0-5) /hpf Urine Bacteria Rare H (None) /hpf Urine Mucus Rare H (None) /hpf Diabetes panel 08/27/23 Range/Units 04:10 Sodium 140 (137-145) mmol/L Potassium 3.8 (3.5-5.1) mmol/L Chloride 107 (98-107) mmol/L Carbon Dioxide 29 (22-30) mmol/L BUN 20 H (7-17) mg/dL Creatinine 0.60 (0.52-1.04) mg/dL Glucose 149 H (74-99) mg/dL Calcium 9.3 (8.4-10.2) mg/dL AST 24 (14-36) U/L ALT 12 (4-34) U/L Alkaline Phosphatase 104 (38-126) U/L Total Protein 7.7 (6.3-8.2) g/dL Albumin 4.1 (3.5-5.0) g/dL Calcium panel 08/27/23 Range/Units 04:10 Calcium 9.3 (8.4-10.2) mg/dL Albumin 4.1 (3.5-5.0) g/dL Pituitary panel 08/27/23 Range/Units 04:10 Sodium 140 (137-145) mmol/L Potassium 3.8 (3.5-5.1) mmol/L Chloride 107 (98-107) mmol/L Carbon Dioxide 29 (22-30) mmol/L BUN 20 H (7-17) mg/dL Creatinine 0.60 (0.52-1.04) mg/dL Glucose 149 H (74-99) mg/dL Calcium 9.3 (8.4-10.2) mg/dL Adrenal panel 08/27/23 Range/Units 04:10 Sodium 140 (137-145) mmol/L Potassium 3.8 (3.5-5.1) mmol/L Chloride 107 (98-107) mmol/L Carbon Dioxide 29 (22-30) mmol/L BUN 20 H (7-17) mg/dL Creatinine 0.60 (0.52-1.04) mg/dL Glucose 149 H (74-99) mg/dL Calcium 9.3 (8.4-10.2) mg/dL Total Bilirubin 0.4 (0.2-1.3) mg/dL AST 24 (14-36) U/L ALT 12 (4-34) U/L Alkaline Phosphatase 104 (38-126) U/L Total Protein 7.7 (6.3-8.2) g/dL Albumin 4.1 (3.5-5.0) g/dL - Imaging CT scan - abdomen: report reviewed, image reviewed CT scan - pelvis: report reviewed, image reviewed Assessment and Plan Assessment: Impression: left [id number] stone with obstruction, 11mm distal. Possible uti Plan THe patient is admitted for ivf and ab. I will see how she does overnight. She will either have a stent alone on the left side or a ureteroscopy with laser litho and a stent depending on how she does.
[2023-08-27] MEDS ORDERED: KETOROLAC 15 MG/ML 1 ML VIAL IVP PRN (13:56)
[2023-08-27] MEDS: SODIUM CHLORIDE 0.9% 1,000 ML IV SCH (15:01)
[2023-08-27] MEDS: TAMSULOSIN 0.4 MG CAP.ER.24H PO SCH (15:03)
[2023-08-27] MEDS: ALPRAZolam 0.5 MG TAB PO SCH (20:29)
--- NOTE | 2023-08-28 07:55 | P.PN ---
Subjective Progress Note Date: 08/28/23 The patient is in the hospital with a left ureteral stone and possible uti. She has been stable over night. there has been no stone passage. THe c&s showed vaginal darian Objective - Vital Signs Vital signs: Vital Signs Temp 97.8 F 08/28/23 02:00 Pulse 89 08/28/23 02:00 Resp 18 08/28/23 02:00 BP 147/79 08/28/23 02:00 Pulse Ox 95 08/28/23 02:00 FiO2 Intake & Output 08/27/23 08/28/23 08/28/23 18:59 06:59 18:59 Intake Total 130 Balance 130 Weight 72.575 kg Intake: Intake, IV Titration 130 Amount Sodium Chloride 0.9% 1, 130 000 ml @ 130 mls/hr IV . Q7H42M [facility] Rx#:[id number] Other: Voiding Method Toilet # Voids 3 - Labs CBC & Chem 7: 08/27/23 04:10 08/27/23 04:10 Assessment and Plan Assessment: Impression Left ureteral stone with possible uti Plan: Since the culture is negative and she has shown no signs of sepsis I will proceed with probable left ureteroscopy with laser lithotripsy later this am. IF the bladder looks infected then I will only do a stent. this has been discussed with the patient.
[2023-08-28] MEDS: ASPIRIN 81 MG PO SCH (07:57)
[2023-08-28] MEDS: ALPRAZolam 0.5 MG TAB PO PRN (08:03)
[2023-08-28] MEDS ORDERED: CLOPIDOGREL 75 MG TAB PO SCH (09:00)
[2023-08-28] MEDS: PANTOPRAZOLE 40 MG/10 ML VIAL IV SCH (11:20)
[2023-08-28 11:35] LABS: ALT 5 U/L (8-44); AST 11 U/L (13-35); Albumin 3.3 g/dL (3.8-4.9); Alkaline Phosphatase 81 U/L (41-126); Blood Urea Nitrogen 14.7 mg/dL (9.0-27.0); Calcium 8.5 mg/dL (8.7-10.3); Carbon Dioxide 25.2 mmol/L (21.6-31.8); Chloride 107 mmol/L (96-109); Globulin 2.2 g/dL (1.6-3.3); Glucose 85 mg/dL (70-110); Potassium 3.4 mmol/L (3.5-5.5); Sodium 140 mmol/L (135-145); Total Bilirubin 0.4 mg/dL (0.3-1.2); Total Protein 5.5 g/dL (6.2-8.2)
[2023-08-28 11:43] LABS: Basophils # (A) 0.07 X 10*3/uL (0.00-0.10); Basophils % (A) 0.8 %; Eosinophils # (A) 0.17 X 10*3/uL (0.04-0.35); HCT 37.7 % (37.2-46.3); HGB 11.8 g/dL (12.0-15.0); Lymphocytes # (A) 1.93 X 10*3/uL (0.90-5.00); Lymphocytes % (A) 23.1 %; MCH 26.8 pg (27.0-32.0); MCHC 31.3 g/dL (32.0-37.0); MCV 85.5 FL (80.0-97.0); Mean Platelet Volume 9.8 FL (9.5-12.2); Monocytes # (A) 0.62 X 10*3/uL (0.20-1.00); Monocytes % (A) 7.4 %; NRBC Per 100 WBC 0 X 10*3/uL (0.00-0.01); Neutrophils # (A) 5.55 X 10*3/uL (1.80-7.70); Neutrophils % (A) 66.3 %; Platelet Count 281 X 10*3/uL (140-440); RBC 4.41 X 10*6/uL (4.10-5.20); RDW 14.4 % (11.5-14.5); WBC 8.37 X 10*3/uL (4.50-10.00)
--- NOTE | 2023-08-28 12:01 | P.PN ---
Subjective Progress Note Date: 08/28/23 patient 77-year-old lady with past medical significant for hypertension, chronic neck pain and CVA, brought to the ER for left groin pain. Patient stated that she was all right 2 days ago and started having left flank pain that started from the back and went all the way to her left groin. Pain was intermittent, sharp, no aggravating or relieving factors associated with this pain. There was no complaint of fever or chills. Patient pain resolved on its own. This morni ng this pain presented again and it was much more severe. There was no complaint nausea or vomiting. No complaint of lightheaded or dizziness. There was no complaint of chest pain or shortness of breath. Because of this left flank pain, patient presented to the ER Initial lab work done in the ER showed WBC 16.1, hemoglobin 14.7, platelet count 283, sodium 140, potassium 3.8, BUN 20, creatinine 0.60, glucose 149, AST 24, ALT 12, UA showed large amount of leukocyte Estrace, WBC 157 Abdominal pelvis done showed 11 mm obstructing calculus in the left distal ureter Patient admitted to internal medicine service 08/28. Patient seen and examined. Patient currently n.p.o., urology plan left ureteroscopy with laser lithotripsy today. Vital signs stable REVIEW OF SYSTEMS: CONSTITUTIONAL: No fever, no malaise,. CARDIOVASCULAR: No chest pain, no palpitations, no syncope. PULMONARY: No shortness of breath, no cough, GASTROINTESTINAL: No diarrhea, no nausea, no vomiting, no abdominal pain. NEUROLOGICAL: No headaches, no weakness, PHYSICAL EXAMINATION: GENERAL: The patient is alert and oriented x3, not in any acute distress. Well developed, well nourished. HEENT: Pupils are round and equally reacting to light. EOMI. No scleral icterus. No conjunctival pallor. Normocephalic, atraumatic. No pharyngeal erythema. No thyromegaly. CARDIOVASCULAR: S1 and S2 present. No murmurs, rubs, or gallops. PULMONARY: Chest is clear to auscultation, no wheezing or crackles. ABDOMEN: Soft, nontender, nondistended, normoactive bowel sounds. No palpable organomegaly. MUSCULOSKELETAL: No joint swelling or deformity. EXTREMITIES: No cyanosis, clubbing, or pedal edema. NEUROLOGICAL: Gross neurological examination did not reveal any focal deficits. SKIN: No rashes. Assessment and plan Left ureteric calculus Hypertension History of CVA Monitor vital signs Monitor CBC Monitor CMP Continue telemetry monitoring Continue IV fluid continue pain management Continue IV Rocephin Continue Flomax Resume lisinopril and Norvasc Urology consulted, plan left ureteroscopy with laser lithotripsy today Labs and medication were reviewed.. Continue same treatment. Continue with symptomatic treatment. Resume home medication. Monitor labs and vitals. DVT and GI prophylaxis. Further recommendations as per clinical course of the patient Dictation was produced using [employer] dictation software. please excuse any grammatical, word or spelling errors. Objective - Vital Signs Vital signs: Vital Signs Temp 97.9 F 08/28/23 08:00 Pulse 74 08/28/23 08:00 Resp 16 08/28/23 08:00 BP 160/84 08/28/23 08:00 Pulse Ox 96 08/28/23 08:00 FiO2 Intake & Output 08/27/23 08/28/23 08/28/23 18:59 06:59 18:59 Intake Total 130 Balance 130 Weight 72.575 kg Intake: Intake, IV Titration 130 Amount Sodium Chloride 0.9% 1, 130 000 ml @ 130 mls/hr IV . Q7H42M [facility] Rx#:[id number] Other: Voiding Method Toilet # Voids 3 - Labs CBC & Chem 7: 08/28/23 06:05 08/28/23 06:05
[2023-08-28] MEDS: IV FLUID CONTINUATION 1,000 ML IV ONE (16:59)
[2023-08-28] MEDS ORDERED: ONDANSETRON 4 MG/2 ML VIAL ONE (17:08)
[2023-08-28] MEDS: ONDANSETRON 4 MG/2 ML VIAL IVP ONE (17:13)
[2023-08-28] MEDS: DEXAMETHASONE SOD PHOSPHATE 4 MG/ML 1 ML VIAL IVP ONE (17:13)
[2023-08-28] MEDS ORDERED: fentaNYL (PF) 50 MCG/ML 2 ML AMP ONE (18:00)
[2023-08-28] MEDS ORDERED: LIDOCAINE 1% INJ 10MG/ML (20 ML MDV) ONE (18:00)
[2023-08-28] MEDS ORDERED: PROPOFOL 10 MG/ML 20 ML VIAL IV ONE (18:00)
[2023-08-28] MEDS: SODIUM CHLORIDE 0.9% 50 ML with ceFAZolin 1,000 MG IV ONE (18:02)
--- NOTE | 2023-08-28 18:47 | P.OP ---
Date of Procedure: 08/28/23 Preoperative Diagnosis: Left ureteral calculus with obstruction Postoperative Diagnosis: Same Procedure(s) Performed: Cystoscopy, left ureteroscopy with laser lithotripsy placement of 624 stent Anesthesia: CHANTELA Surgeon: Reg Fischer Estimated Blood Loss (ml): 0 Pathology: other (Stone) Condition: stable Disposition: PACU Indications for Procedure: Patient is 77. She presented with a 9 mm distal ureteral stone with obstruction. She wishes to have removed she comes for stone removal with ureteroscopy laser lithotripsy. The urine culture is negative. Description of Procedure: Patient brought to the operative suite. Given general anesthesia. Placed lithotomy position with a sterile prep and drape. Cystoscopy Foroblique lens and 21-Yakut sheath identifies a normal urethra. She does of the posterior place bladder secondary to cystocele. There is minimal inflammation. Both ureteral orifices are normal. The bladder collins unremarkable. The left renal orifice is intubated with a 7-Yakut mini ureteroscope up to the stone. The stone is broken into tiny fragments with a 375 laser probe and flushed out of the ureter. Due to the edema from the stone 035 wire is placed up the left ureter. The ureteroscope is removed. Over the wires is passed a 6 x 24 double- J catheter that coils in the renal pelvis and the bladder the bladder is drained of stone fragments that were collected the patient is awakened and returned recovery in good condition. The patient tolerated the procedure well
[2023-08-28] MEDS: HYDROcodone/APAP 5-325MG 1 EACH TAB PO PRN (20:13)
[2023-08-28] MEDS: lisinopriL 20 MG TAB PO SCH (20:13)
[2023-08-28] MEDS: amLODIPine 5 MG TAB PO SCH (20:13)
[2023-08-29 08:33] VITALS: RESP 18; TEMP 98.6
--- NOTE | 2023-08-29 08:58 | P.PN ---
Subjective Progress Note Date: 08/29/23 The patient is in the hospital with a left ureteral stone. He underwent left ureteroscopy laser lithotripsy and stent placement last night. She is doing well. Objective - Vital Signs Vital signs: Vital Signs Temp 98.6 F 08/29/23 07:45 Pulse 82 08/29/23 07:45 Resp 18 08/29/23 07:45 BP 148/71 08/29/23 07:45 Pulse Ox 91 L 08/29/23 07:45 FiO2 Intake & Output 08/28/23 08/29/23 08/29/23 18:59 06:59 18:59 Intake Total 1810 50 Output Total 1 Balance 1809 50 Intake: IV 250 50 Intake, IV Titration 1560 Amount Sodium Chloride 0.9% 1, 1560 000 ml @ 130 mls/hr IV . Q7H42M [facility] Rx#:[id number] Output: Estimated Blood Loss 1 Other: Voiding Method Toilet Toilet # Voids 2 3 - Labs CBC & Chem 7: 08/28/23 06:05 08/28/23 06:05 Labs: Abnormal Lab Results - Last 24 Hours (Table) 08/28/23 08/28/23 Range/Units 06:05 06:05 Hgb 11.8 L (12.0-15.0) g/dL MCH 26.8 L (27.0-32.0) pg MCHC 31.3 L (32.0-37.0) g/dL Potassium 3.4 L (3.5-5.5) mmol/L Creatinine 0.5 L (0.6-1.5) mg/dL BUN/Creatinine Ratio 29.40 H (12.00-20.00) Ratio Calcium 8.5 L (8.7-10.3) mg/dL AST 11 L (13-35) U/L ALT 5 L (8-44) U/L Total Protein 5.5 L (6.2-8.2) g/dL Albumin 3.3 L (3.8-4.9) g/dL Albumin/Globulin Ratio 1.50 L (1.60-3.17) Ratio Microbiology - Last 24 Hours (Table) 08/27/23 09:30 Blood Culture - Preliminary Blood Assessment and Plan Assessment: Impression: Successful removal of left ureteral stone. Recommendations: The patient may be discharged home today. She can use Tylenol or Motrin for pain. She should follow my office for cystoscopy and stent removal on the left side in one week.
--- NOTE | 2023-08-29 11:52 | P.DS ---
Providers Date of admission: 08/27/23 13:51 Expected date of discharge: 08/29/23 Attending physician: Mark Tate Consults: 08/27/23 12:31 Consult Physician Routine Consulting Provider: Reg Fischer Consult Reason/Comments: Ureteral stone Do you want consulting provider notified?: Already Contacted [facility] [facility] Course: Discharge diagnoses; Left ureteric calculus Hypertension History of CVA Hospital course; patient 77-year-old lady with past medical significant for hypertension, chronic neck pain and CVA, brought to the ER for left groin pain. Patient stated that she was all right 2 days ago and started having left flank pain that started from the back and went all the way to her left groin. Pain was intermittent, sharp, no aggravating or relieving factors associated with this pain. There was no complaint of fever or chills. Patient pain resolved on its own. This morning this pain presented again and it was much more severe. There was no complaint nausea or vomiting. No complaint of lightheaded or dizziness. There was no complaint of chest pain or shortness of breath. Because of this left flank pain, patient presented to the ER Initial lab work done in the ER showed WBC 16.1, hemoglobin 14.7, platelet count 283, sodium 140, potassium 3.8, BUN 20, creatinine 0.60, glucose 149, AST 24, ALT 12, UA showed large amount of leukocyte Estrace, WBC 157 Abdominal pelvis done showed 11 mm obstructing calculus in the left distal ureter Patient admitted to internal medicine service 08/28. Patient seen and examined. Patient currently n.p.o., urology plan left ureteroscopy with laser lithotripsy today. Vital signs stable 08/29. Patient seen and examined. Patient underwent left ureteroscopy laser lithotripsy and stent placement. Currently patient is pain-free, urology cleared the patient for discharge. Being discharged on Ceftin for short course. PHYSICAL EXAMINATION: GENERAL: The patient is alert and oriented x3, not in any acute distress. Well developed, well nourished. HEENT: Pupils are round and equally reacting to light. EOMI. No scleral icterus. No conjunctival pallor. Normocephalic, atraumatic. No pharyngeal erythema. No thyromegaly. CARDIOVASCULAR: S1 and S2 present. No murmurs, rubs, or gallops. PULMONARY: Chest is clear to auscultation, no wheezing or crackles. ABDOMEN: Soft, nontender, nondistended, normoactive bowel sounds. No palpable organomegaly. MUSCULOSKELETAL: No joint swelling or deformity. EXTREMITIES: No cyanosis, clubbing, or pedal edema. NEUROLOGICAL: Gross neurological examination did not reveal any focal deficits. SKIN: No rashes. Dictation was produced using [employer] dictation software. please excuse any grammatical, word or spelling errors. Patient Condition at Discharge: Good Plan - Discharge Summary Discharge Rx Participant: No New Discharge Prescriptions: New Cefuroxime [Ceftin] 250 mg PO BID 3 Days #6 tab Tamsulosin [Flomax] 0.4 mg PO DAILY #14 cap HYDROcodone/APAP 5-325MG [[place] 5-325] 1 tab PO Q4HR PRN 3 Days #18 tab PRN Reason: Pain Ondansetron Odt [Zofran ODT] 4 mg PO Q8HR PRN #10 tab PRN Reason: Nausea Continue Clopidogrel Bisulfate [Plavix] 75 mg PO DAILY amLODIPine [Norvasc] 5 mg PO HS Aspirin [[place] Aspirin EC] 81 mg PO DAILY lisinopriL [Zestril] 20 mg PO BID ALPRAZolam [Xanax] 0.5 mg PO HS ALPRAZolam [Xanax] 0.5 mg PO DAILY PRN PRN Reason: Anxiety Discharge Medication List Clopidogrel Bisulfate [Plavix] 75 mg PO DAILY 03/26/21 [History] amLODIPine [Norvasc] 5 mg PO HS 09/12/22 [History] Aspirin [[place] Aspirin EC] 81 mg PO DAILY 05/24/23 [History] ALPRAZolam [Xanax] 0.5 mg PO DAILY PRN 08/27/23 [History] ALPRAZolam [Xanax] 0.5 mg PO HS 08/27/23 [History] HYDROcodone/APAP 5-325MG [[place] 5-325] 1 tab PO Q4HR PRN 3 Days #18 tab 08/27/23 [Rx] Ondansetron Odt [Zofran ODT] 4 mg PO Q8HR PRN #10 tab 08/27/23 [Rx] Tamsulosin [Flomax] 0.4 mg PO DAILY #14 cap 08/27/23 [Rx] lisinopriL [Zestril] 20 mg PO BID 08/27/23 [History] Cefuroxime [Ceftin] 250 mg PO BID 3 Days #6 tab 08/29/23 [Rx] Follow up Appointment(s)/Referral(s): Stella Castro MD [Primary Care Provider] - 1-2 days Reg Fischer MD [STAFF PHYSICIAN] - 1 Week (Cystoscopy with stent removal) Discharge/Stand Alone Forms: Who Do I Call?, Community Resources, Help In The Home Discharge Disposition: HOME SELF-CARE
[2023-08-29 12:15] VITALS: BP 149/74; PULSE 93
== END 2023-08-29 12:02 | disposition home or self-care (01) | DRG 660 ==
LOC: EC 02:50 → 5NMEDONC 13:51
PROVIDERS: ADMIT Hospitalist; ATTEND Hospitalist
PROC: 0T778DZ Dilation of Left Ureter with Intraluminal Device, Via Natural or Artificial Opening Endoscopic (ICD-10-PCS; principal; 2023-08-28 07:30)
PROC: 0T9B30Z Drainage of Bladder with Drainage Device, Percutaneous Approach (ICD-10-PCS; 2023-08-28 07:30)
PROC: 0TC78ZZ Extirpation of Matter from Left Ureter, Via Natural or Artificial Opening Endoscopic (ICD-10-PCS; 2023-08-28 07:30)
DX: N20.2 Calculus of kidney with calculus of ureter (principal); N39.0 Urinary tract infection, site not specified; I10 Essential (primary) hypertension; F17.210 Nicotine dependence, cigarettes, uncomplicated; F41.9 Anxiety disorder, unspecified; G89.29 Other chronic pain; M54.2 Cervicalgia; H91.90 Unspecified hearing loss, unspecified ear; Z79.02 Long term (current) use of antithrombotics/antiplatelets; Z79.82 Long term (current) use of aspirin; Z79.899 Other long term (current) drug therapy; Z87.442 Personal history of urinary calculi; Z86.73 Personal history of transient ischemic attack (TIA), and cerebral infarction without residual deficits; Z98.51 Tubal ligation status; Z90.49 Acquired absence of other specified parts of digestive tract; Z98.42 Cataract extraction status, left eye; Z98.41 Cataract extraction status, right eye
CPT/HCPCS: 36415; 74176; 80053; 81001; 82150; 82365; 83690; 83735; 84100; 85025; 87040; 96361; 96365; 96366; 99285

== ENCOUNTER 2023-12-03 20:33 | Emergency (ER) | payer MEDICARE, OTHER ==
[2023-12-03 21:02] VITALS: PULSE 69; RESP 18; TEMP 97.7
--- NOTE | 2023-12-03 21:39 | ED ---
General Adult HPI - General Chief complaint: Recheck/Abnormal Lab/Rx Stated complaint: Med Refill,Anxiety Time Seen by Provider: 12/03/23 21:24 Source: patient, RN notes reviewed Mode of arrival: wheelchair Limitations: no limitations - History of Present Illness Initial comments: 78-year-old female presented to the ED with complaints of medication refill. Patient reports that she had a stroke in the past and since then has had problems with anxiety especially at night. She has been taking trazodone 50 mg nightly for this. States that her PCP recently shut down however is currently trying to find a new one. Due to her not having a current PCP has run out of her medications and would like to have medication refill. At this time has no complaints. Denies chest pain, shortness of breath, abdominal pain, nausea vomiting diarrhea, fever or chills. No other complaints at this time - Related Data Home Medications Medication Instructions Recorded Confirmed Clopidogrel Bisulfate [Plavix] 75 mg PO DAILY 03/26/21 08/27/23 amLODIPine [Norvasc] 5 mg PO HS 09/12/22 08/27/23 Aspirin [[place] Aspirin EC] 81 mg PO DAILY 05/24/23 08/27/23 ALPRAZolam [Xanax] 0.5 mg PO DAILY PRN 08/27/23 08/27/23 ALPRAZolam [Xanax] 0.5 mg PO HS 08/27/23 08/27/23 lisinopriL [Zestril] 20 mg PO BID 08/27/23 08/27/23 Previous Rx's Medication Instructions Recorded HYDROcodone/APAP 5-325MG [[place] 1 tab PO Q4HR PRN 3 Days #18 tab 08/27/23 5-325] Ondansetron Odt [Zofran ODT] 4 mg PO Q8HR PRN #10 tab 08/27/23 Tamsulosin [Flomax] 0.4 mg PO DAILY #14 cap 08/27/23 Cefuroxime [Ceftin] 250 mg PO BID 3 Days #6 tab 08/29/23 traZODone HCL [Desyrel] 50 mg PO HS PRN 30 Days #30 tab 12/03/23 Allergies Allergy/AdvReac Type Severity Reaction Status Date / Time No Known Allergies Allergy Verified 12/03/23 20:40 Review of Systems ROS Statement: Those systems with pertinent positive or pertinent negative responses have been documented in the HPI. ROS Other: All systems not noted in ROS Statement are negative. Past Medical History Past Medical History: CVA/TIA, Hearing Disorder / Deafness, Hypertension Additional Past Medical History / Comment(s): See Dr Alvarez's H&P. Hx stroke and TIA's, some difficulty with balance & walking (has cane & walker as needed) Hx Shingles in 2013. Hx kidney stones. 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 Environmental allergies. Hard of hearing. History of Any Multi-Drug Resistant Organisms: None Reported Past Surgical History: Cholecystectomy, Tubal Ligation Additional Past Surgical History / Comment(s): Bilateral cataract surgery, glaucoma procedure. Past Anesthesia/Blood Transfusion Reactions: No Reported Reaction Additional Past Anesthesia/Blood Transfusion Reaction / Comment(s): Pt received blood at age 18 and had a reaction but cannot recall type of reaction. Past Psychological History: Anxiety Smoking Status: Current every day smoker Past Alcohol Use History: None Reported Past Drug Use History: None Reported - Past Family History Father History Unknown: Yes Family Medical History: No Reported History Mother Family Medical History: Cancer, COPD Additional Family Medical History / Comment(s): Mother was healthy General Exam Limitations: no limitations General appearance: alert, in no apparent distress Eye exam: Present: normal appearance Neck exam: Present: normal inspection Respiratory exam: Present: normal lung sounds bilaterally Cardiovascular Exam: Present: regular rate GI/Abdominal exam: Present: soft, normal bowel sounds. Absent: distended, tenderness, guarding, rebound, rigid Neurological exam: Present: alert, oriented X3 Skin exam: Present: warm, dry Course Vital Signs 12/03/23 20:35 Temperature 97.7 F Pulse Rate 69 Respiratory 18 Rate Blood Pressure 151/76 O2 Sat by Pulse 98 Oximetry Medical Decision Making - Medical Decision Making Was pt. sent in by a medical professional or institution (, PA, MANUFACTURING DEVELOPMENT ENGINEER, urgent care, hospital, or fpc...) When possible be specific @ -No Did you speak to anyone other than the patient for history (EMS, parent, family, police, friend...)? What history was obtained from this source @ -No Did you review nursing and triage notes (agree or disagree)? Why? @ -I reviewed and agree with nursing and triage notes Were old charts reviewed (outside hosp., previous admission, EMS record, old EKG, old radiological studies, urgent care reports/EKG's, fpc records)? Report findings @ -No old charts were reviewed Differential Diagnosis (chest pain, altered mental status, abdominal pain women, abdominal pain men, vaginal bleeding, weakness, fever, dyspnea, syncope, headac he, dizziness, GI bleed, back pain, seizure, CVA, palpatations, mental health, musculoskeletal)? @ -Differential Mental Health Depression, anxiety, bipolar, psychosis, schizophrenia, borderline personality, situational depression, adjustment disorder, behavioral disorder, brain tumor, malingering, substance abuse, encephalopathy, medication reaction, dementia, hypothyroidism, degenerative neurologic disorder, lupus.... This is not meant to be all-inclusive list EKG interpreted by me (3pts min.). @ -None X-rays interpreted by me (1pt min.). @ -None done CT interpreted by me (1pt min.). @ -None done U/S interpreted by me (1pt. min.). @ -None done What testing was considered but not performed or refused? (CT, X-rays, U/S, labs)? Why? @ -None What meds were considered but not given or refused? Why? @ -None Did you discuss the management of the patient with other professionals (professionals i.e. , PA, MANUFACTURING DEVELOPMENT ENGINEER, lab, RT, psych nurse, social work msw, chemical mixer, teacher, border patrol officer, case mgr)? Give summary @ -No Was smoking cessation discussed for >3mins.? @ -No Was critical care preformed (if so, how long)? @ -No Were there social determinants of health that impacted care today? How? (Homelessness, low income, unemployed, alcoholism, drug addiction, transportation, low edu. Level, literacy, decrease access to med. care, [facility], rehab)? @ -No Was there de-escalation of care discussed even if they declined (Discuss DNR or withdrawal of care, Hospice)? DNR status @ -No What co-morbidities impacted this encounter? (DM, HTN, Smoking, COPD, CAD, Can cer, CVA, ARF, Chemo, Hep., AIDS, mental health diagnosis, sleep apnea, morbid obesity)? @ -None Was patient admitted / discharged? Hospital course, mention meds given and route, prescriptions, significant lab abnormalities, going to OR and other pertinent info. @ -Discharge 78-year-old female presenting to the ED with complaints of anxiety and trouble sleeping. States she was previously prescribed trazodone 50 mg at night secondary to anxiety and trouble sleeping. Her PCP shutdown however is currently trying to find a new one. Due to her not having a current PCP has run out of her medications and would like to have a refill. Denies suicidal or homicidal ideation. Provided prescription for trazodone 50 mg and discharged home in stable condition. Discussed return precautions with patient who verbalized agreement. Undiagnosed new problem with uncertain prognosis? @ -No Drug Therapy requiring intensive monitoring for toxicity (Heparin, Nitro, Insulin, Cardizem)? @ -No Were any procedures done? @ -No Diagnosis/symptom? @ -Medication refill, anxiety Acute, or Chronic, or Acute on Chronic? @ -Acute Uncomplicated (without systemic symptoms) or Complicated (systemic symptoms)? @ -Uncomplicated Side effects of treatment? @ -No Exacerbation, Progression, or Severe Exacerbation? @ -No Poses a threat to life or bodily function? How? (Chest pain, [place], MD, pneumonia, PE, COPD, DKA, ARF, appy, cholecystitis, CVA, Diverticulitis, Homicidal, Suicidal, threat to staff... and all critical care pts) @ -No Disposition Clinical Impression: Medication refill Disposition: HOME SELF-CARE Condition: Good Additional Instructions: Please return to the Emergency Department if symptoms worsen or any other concerns. Please follow-up with primary care. Prescriptions: traZODone HCL [Desyrel] 50 mg PO HS PRN 30 Days #30 tab PRN Reason: insomnia Is patient prescribed a controlled substance at d/c from ED?: No Referrals: None,Stated [Primary Care Provider] - 1-2 days Time of Disposition: 21:35
[2023-12-03] MEDS: traZODone HCL 50 MG TAB PO ONE (21:53)
[2023-12-03 22:39] VITALS: BP 152/74
== END 2023-12-03 21:58 | disposition home or self-care (01) ==
LOC: EC 20:33
DX: Z76.0 Encounter for issue of repeat prescription (principal); F17.200 Nicotine dependence, unspecified, uncomplicated; Z86.73 Personal history of transient ischemic attack (TIA), and cerebral infarction without residual deficits; Z90.49 Acquired absence of other specified parts of digestive tract
CPT/HCPCS: 99283

== ENCOUNTER 2023-12-20 07:02 | Emergency (ER) | payer MEDICARE, OTHER ==
--- NOTE | 2023-12-20 08:09 | ED ---
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 Presents complaining of anxiety. Patient has been out of her trazodone which was refilled less than 1 month ago. This is a recurrent issue since her stroke and it seems to be getting worse particularly when she does not have her medications. Has been out of her trazodone for 3 days. Took a month supply in approximately 15 days. Is not on any other anxiety medications. States that the panic attacks always occur in the middle the night which is when she had a stroke. They seem to be getting worse. Does have follow-up with a [facility] physician tomorrow to review medications. She is seeking some form of relief today as symptoms have been worse over the last 3 days since medications ran out. Has been on Xanax in the past which she states actually works better than the trazodone. Denies any chest pain or shortness of breath. Denies any other acute complaints at this time. Presents for further evaluation. - Related Data Home Medications Medication Instructions Recorded Confirmed Clopidogrel Bisulfate [Plavix] 75 mg PO DAILY 03/26/21 08/27/23 amLODIPine [Norvasc] 5 mg PO HS 09/12/22 08/27/23 Aspirin [[place] Aspirin EC] 81 mg PO DAILY 05/24/23 08/27/23 ALPRAZolam [Xanax] 0.5 mg PO DAILY PRN 08/27/23 08/27/23 ALPRAZolam [Xanax] 0.5 mg PO HS 08/27/23 08/27/23 lisinopriL [Zestril] 20 mg PO BID 08/27/23 08/27/23 Previous Rx's Medication Instructions Recorded HYDROcodone/APAP 5-325MG [[place] 1 tab PO Q4HR PRN 3 Days #18 tab 08/27/23 5-325] Ondansetron Odt [Zofran ODT] 4 mg PO Q8HR PRN #10 tab 08/27/23 Tamsulosin [Flomax] 0.4 mg PO DAILY #14 cap 08/27/23 Cefuroxime [Ceftin] 250 mg PO BID 3 Days #6 tab 08/29/23 traZODone HCL [Desyrel] 50 mg PO HS PRN 30 Days #30 tab 12/03/23 ALPRAZolam [Xanax] 0.25 mg PO DAILY PRN 3 Days #3 tab 12/20/23 traZODone HCL [Desyrel] 50 mg PO HS 3 Days #3 tab 12/20/23 Allergies Allergy/AdvReac Type Severity Reaction Status Date / Time No Known Allergies Allergy Verified 12/03/23 20:40 Review of Systems ROS Statement: Those systems with pertinent positive or pertinent negative responses have been documented in the HPI. Review of Systems: CONST: Denies fever EYES: Denies blurry vision ENT: Denies nasal congestion C/V: Denies Chest pain RESP: Denies shortness of breath GI: Denies abdominal pain : Denies dysuria SKIN: Denies rash. MSK: Denies joint pain. NEURO: Denies headache ROS Other: All systems not noted in ROS Statement are negative. Past Medical History Past Medical History: CVA/TIA, Hearing Disorder / Deafness, Hypertension Additional Past Medical History / Comment(s): See Dr Alvarez's H&P. Hx stroke and TIA's, some difficulty with balance & walking (has cane & walker as needed) Hx Shingles in 2013. Hx kidney stones. 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 Environmental allergies. Hard of hearing. History of Any Multi-Drug Resistant Organisms: None Reported Past Surgical History: Cholecystectomy, Tubal Ligation Additional Past Surgical History / Comment(s): Bilateral cataract surgery, glaucoma procedure. Past Anesthesia/Blood Transfusion Reactions: No Reported Reaction Additional Past Anesthesia/Blood Transfusion Reaction / Comment(s): Pt received blood at age 18 and had a reaction but cannot recall type of reaction. Past Psychological History: Anxiety Smoking Status: Current every day smoker Past Alcohol Use History: None Reported Past Drug Use History: None Reported - Past Family History Father History Unknown: Yes Family Medical History: No Reported History Mother Family Medical History: Cancer, COPD Additional Family Medical History / Comment(s): Mother was healthy General Exam - General Exam Comments Initial Comments: General: Appears anxious. HEAD: Normal with no signs of head trauma. EYES: PERRLA, EOMI, conjunctiva normal, no discharge. Pupils are 3 mm and equal bilaterally. ENT: Hearing grossly intact RESPIRATORY: Clear breath sounds bilaterally. No wheezes, rales, or rhonchi. C/V: Regular rate and rhythm. S1 and S2 auscultated, peripheral pulses 2+ and intact throughout ABD: Abd is soft, nontender, nondistended EXT: no obvious deformity SKIN: No rashes or lesions observed on exposed skin. NEURO: Alert and oriented x 4. Cranial nerves II-XII intact. No focal sensory or strength deficits. No obvious focal deficits. Course Vital Signs 12/20/23 12/20/23 07:18 08:26 Temperature 97.8 F 97.6 F Pulse Rate 65 63 Respiratory 16 16 Rate Blood Pressure 157/85 148/84 O2 Sat by Pulse 95 96 Oximetry Medical Decision Making - Medical Decision Making Was pt. sent in by a medical professional or institution (, PA, PAPER BAG MACHINE OPERATOR, urgent care, hospital, or shelter...) When possible be specific @ -No Did you speak to anyone other than the patient for history (EMS, parent, family, police, friend...)? What history was obtained from this source @ -No Did you review nursing and triage notes (agree or disagree)? Why? @ -I reviewed and agree with nursing and triage notes Were old charts reviewed (outside hosp., previous admission, EMS record, old EKG, old radiological studies, urgent care reports/EKG's, shelter records)? Report findings @ -Old charts reviewed from our hospital on December 02 including from last month when patient was prescribed trazodone which is a home medication for the patient. Differential Diagnosis (chest pain, altered mental status, abdominal pain women, abdominal pain men, vaginal bleeding, weakness, fever, dyspnea, syncope, headache, dizziness, GI bleed, back pain, seizure, CVA, palpatations, mental health, musculoskeletal)? @ -Anxiety, medication refill. This list is not all inclusive. EKG interpreted by me (3pts min.). @ -As above X-rays interpreted by me (1pt min.). @ -None done CT interpreted by me (1pt min.). @ -None done U/S interpreted by me (1pt. min.). @ -None done What testing was considered but not performed or refused? (CT, X-rays, U/S, labs)? Why? @ -None What meds were considered but not given or refused? Why? @ -None Did you discuss the management of the patient with other professionals (professionals i.e. , PA, PAPER BAG MACHINE OPERATOR, lab, RT, psych nurse, child protective services social worker, nuclear waste management engineer, teacher, first officer, case repairer)? Give summary @ -No Was smoking cessation discussed for >3mins.? @ -No Was critical care preformed (if so, how long)? @ -No Were there social determinants of health that impacted care today? How? (Home lessness, low income, unemployed, alcoholism, drug addiction, transportation, low edu. Level, literacy, decrease access to med. care, assisted, rehab)? @ -No Was there de-escalation of care discussed even if they declined (Discuss DNR or withdrawal of care, Hospice)? DNR status @ -No What co-morbidities impacted this encounter? (DM, HTN, Smoking, COPD, CAD, Cancer, CVA, ARF, Chemo, Hep., AIDS, mental health diagnosis, sleep apnea, morbid obesity)? @ -None Was patient admitted / discharged? Hospital course, mention meds given and route, prescriptions, significant lab abnormalities, going to OR and other pertinent info. @ -After discussion with the patient. I would like to obtain screening EKG but provide the patient also with a dose of Xanax that she states this has helped helped in the past. We will observe the patient. She has no other complaints at this time. She is not a danger to herself or others. I did offer her to speak with EPS which she declined as she does follow-up with [facility] physician tomorrow. She was in agreement this plan. Vital signs are within acceptable limits. EKG was obtained and revealed no evidence of trazodone toxicity with no QT prolongation. Also no evidence of acute ischemic process. On reevaluation after the Xanax, patient is much more relaxed and feels ready to go home. I did discuss with her that she needs to make her appointment that she has tomorrow for more medications but I will provide her with 3-day prescriptions of both Xanax as well as trazodone. Patient was in agreement this plan. Strict return precautions discussed. I will provide the patient with a prescription for 3-day prescription of Xanax and trazodone. I instructed the patient to follow up with their PCP in the next 1-3 days.. I explained that the patient should return to the emergency department if they experience any worsening symptoms. Strict return precautions were discussed with the patient. The patient expressed understanding of these instructions. I answered all questions that the patient had. The patient was discharged home in good condition with their prescriptions and follow up information. Undiagnosed new problem with uncertain prognosis? @ -No Drug Therapy requiring intensive monitoring for toxicity (Heparin, Nitro, Insulin, Cardizem)? @ -No Were any procedures done? @ -No Diagnosis/symptom? @ -Anxiety, panic attack Acute, or Chronic, or Acute on Chronic? @ -Acute on chronic Uncomplicated (without systemic symptoms) or Complicated (systemic symptoms)? @ -Complicated Side effects of treatment? @ -None Exacerbation, Progression, or Severe Exacerbation] @ -No Poses a threat to life or bodily function? @ -Unlikely - EKG Data -: EKG Interpreted by Me EKG Comments: 12-lead Electrocardiogram Interpretation Note EKG was reviewed and interpreted by myself. 12-lead ECG performed at 0822 is interpreted by me as revealing sinus bradycardia at a rate of 58 beats per minute. [place] is normal. DC interval is 174 ms, QRS duration is 99 ms, QTc is 420 ms.. There were no ST or T wave abnormalities to suggest myocardial ischemia or injury. R wave progression across the precordium was satisfactory. By my interpretation this EKG is non-diagnostic for acute ischemia. No evidence of QT prolongation. Disposition Clinical Impression: Panic attack, Acute anxiety Disposition: HOME SELF-CARE Condition: Good Instructions (If sedation given, give patient instructions): Generalized Anxiety Disorder (ED) Prescriptions: traZODone HCL [Desyrel] 50 mg PO HS 3 Days #3 tab ALPRAZolam [Xanax] 0.25 mg PO DAILY PRN 3 Days #3 tab PRN Reason: Anxiety Is patient prescribed a controlled substance at d/c from ED?: Yes Referrals: None,Stated [Primary Care Provider] - 1-2 days Forms: Area PCPs Time of Disposition: 09:29
[2023-12-20] MEDS: ALPRAZolam 0.25 MG TAB PO STA (08:37)
[2023-12-20 10:02] VITALS: BP 147/80; PULSE 61; RESP 18; TEMP 97.7
== END 2023-12-20 09:55 | disposition home or self-care (01) ==
LOC: EC 07:02
DX: F41.0 Panic disorder [episodic paroxysmal anxiety] (principal); R00.1 Bradycardia, unspecified; F17.200 Nicotine dependence, unspecified, uncomplicated; Z86.73 Personal history of transient ischemic attack (TIA), and cerebral infarction without residual deficits
CPT/HCPCS: 93005; 99284

== ENCOUNTER 2024-02-11 14:39 | Emergency (ER) | payer MEDICARE, OTHER ==
[2024-02-11 14:45] VITALS: TEMP 99
--- NOTE | 2024-02-11 16:20 | XR ---
EXAMINATION TYPE: XR chest 2V DATE OF EXAM: 02/11/2024 COMPARISON: 05/24/2023 HISTORY: Cough, chest pain TECHNIQUE: Frontal and lateral views of the chest are obtained. FINDINGS: There is no focal air space opacity, pleural effusion, or pneumothorax seen. The cardiac silhouette size is within normal limits. The osseous structures are intact. IMPRESSION: No acute cardiopulmonary process.
[2024-02-11 16:53] LABS: Basophils # (A) 0.1 k/uL (0-0.2); Basophils % (A) 1 %; Eosinophils # (A) 0.1 k/uL (0-0.7); Eosinophils % (A) 2 %; HCT 41.9 % (34.0-46.0); HGB 13.4 gm/dL (11.4-16.0); Lymphocytes # (A) 1.5 k/uL (1.0-4.8); Lymphocytes % (A) 21 %; MCH 27.2 pg (25.0-35.0); MCV 84.7 fL (80.0-100.0); Monocytes # (A) 0.5 k/uL (0-1.0); Monocytes % (A) 7 %; Neutrophils # (A) 4.9 k/uL (1.3-7.7); Neutrophils % (A) 68 %; Platelet Count 337 k/uL (150-450); RBC 4.95 m/uL (3.80-5.40); RDW 13.3 % (11.5-15.5); WBC 7.2 k/uL (3.8-10.6)
[2024-02-11 17:01] LABS: INR 0.9 (<1.2); Partial Thromboplastin Time 24.5 sec (22.0-30.0); Prothrombin Time 10.5 sec (10.0-12.5)
[2024-02-11 17:06] LABS: ALT 9 U/L (4-34); African American GFR (CKD) >90 (>60 ml/min/1.73 sqM); Albumin 3.6 g/dL (3.5-5.0); Anion Gap 3 mmol/L; Blood Urea Nitrogen 19 mg/dL (7-17); Calcium 8.9 mg/dL (8.4-10.2); Carbon Dioxide 28 mmol/L (22-30); Chloride 105 mmol/L (98-107); Glucose 95 mg/dL (74-99); Non-African American GFR(CKD) 88 (>60 ml/min/1.73 sqM); Sodium 136 mmol/L (137-145); Total Bilirubin 0.6 mg/dL (0.2-1.3); Total Protein 6.5 g/dL (6.3-8.2)
[2024-02-11 17:07] LABS: AST 22 U/L (14-36); Alkaline Phosphatase 82 U/L (38-126); Magnesium 1.9 mg/dL (1.6-2.3); Potassium 4.1 mmol/L (3.5-5.1)
[2024-02-11 17:15] LABS: NT-Pro-B-Type Natriuretic Pept 257 pg/mL
--- NOTE | 2024-02-11 18:13 | ED ---
Chest Pain HPI - General Chief Complaint: Chest Pain Stated Complaint: Chest pain Source: EMS Mode of arrival: EMS Limitations: no limitations - History of Present Illness Initial Comments: 78-year-old female with past medical history of CVA who presents emergency department reporting chest pain. [facility] She reported some chest heaviness but denies chest pain. En route to the hospital she was given 324 of aspirin and 1 nitro. Patient denies any discomfort at this time. No fevers, chills or cough. No nausea or vomiting. Denies any leg swelling. No history of DVT or PE. The patient is also reporting to some difficulties with her balance. She has a history of stroke. No other alleviating, precipitating or modifying factors - Related Data Home Medications Medication Instructions Recorded Confirmed amLODIPine [Norvasc] 5 mg PO DAILY 09/12/22 02/11/24 Aspirin [[place] Aspirin EC] 81 mg PO DAILY 05/24/23 02/11/24 lisinopriL [Zestril] 20 mg PO BID 08/27/23 02/11/24 Sertraline [Zoloft] 25 mg PO BID 02/11/24 02/11/24 busPIRone HCl [Buspar] 5 mg PO BID 02/11/24 02/11/24 Previous Rx's Medication Instructions Recorded traZODone HCL [Desyrel] 50 mg PO HS 3 Days #3 tab 12/20/23 Allergies Allergy/AdvReac Type Severity Reaction Status Date / Time No Known Allergies Allergy Verified 02/11/24 15:42 Review of Systems ROS Statement: Those systems with pertinent positive or pertinent negative responses have been documented in the HPI. ROS Other: All systems not noted in ROS Statement are negative. Past Medical History Past Medical History: Atrial Fibrillation, CVA/TIA, Hearing Disorder / Deafness, Hypertension Additional Past Medical History / Comment(s): See Dr Alvarez's H&P. Hx stroke and TIA's, some difficulty with balance & walking (has cane & walker as needed) Hx Shingles in 2013. Hx kidney stones. 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 Environmental all ergies. Hard of hearing. History of Any Multi-Drug Resistant Organisms: None Reported Past Surgical History: Cholecystectomy, Tubal Ligation Additional Past Surgical History / Comment(s): Bilateral cataract surgery, glaucoma procedure. Past Anesthesia/Blood Transfusion Reactions: No Reported Reaction Additional Past Anesthesia/Blood Transfusion Reaction / Comment(s): Pt received blood at age 18 and had a reaction but cannot recall type of reaction. Past Psychological History: Anxiety Smoking Status: Current every day smoker Past Alcohol Use History: None Reported Past Drug Use History: None Reported - Past Family History Father History Unknown: Yes Family Medical History: No Reported History Mother Family Medical History: Cancer, COPD Additional Family Medical History / Comment(s): Mother was healthy General Exam Limitations: no limitations General appearance: alert, in no apparent distress Head exam: Present: atraumatic, normocephalic, normal inspection Eye exam: Present: normal appearance, PERRL, EOMI. Absent: scleral icterus, conjunctival injection, periorbital swelling ENT exam: Present: normal exam, mucous membranes moist Neck exam: Present: normal inspection. Absent: tenderness, meningismus, lymphadenopathy Respiratory exam: Present: normal lung sounds bilaterally. Absent: respiratory distress, wheezes, rales, rhonchi, stridor Cardiovascular Exam: Present: regular rate, normal rhythm, normal heart sounds. Absent: systolic murmur, diastolic murmur, rubs, gallop, clicks GI/Abdominal exam: Present: soft, normal bowel sounds. Absent: distended, tenderness, guarding, rebound, rigid Extremities exam: Present: normal inspection, full ROM, normal capillary refill. Absent: tenderness, pedal edema, joint swelling, calf tenderness Back exam: Present: normal inspection Neurological exam: Present: alert, oriented X3, CN II-XII intact Psychiatric exam: Present: normal affect, normal mood Skin exam: Present: warm, dry, intact, normal color. Absent: rash Course Vital Signs 02/11/24 02/11/24 02/11/24 14:43 17:37 18:26 Temperature 99.0 F Pulse Rate 65 60 62 Respiratory 18 18 Rate Blood Pressure 98/64 146/93 O2 Sat by Pulse 96 96 Oximetry 02/11/24 02/11/24 18:35 18:49 Temperature Pulse Rate 64 68 Respiratory 20 Rate Blood Pressure 167/90 O2 Sat by Pulse 94 L Oximetry Chest Pain MDM - MDM Was pt. sent in by a medical professional or institution (, PA, TOILET ATTENDANT, urgent care, hospital, or halfway...) When possible be specific @ -[facility] Did you speak to anyone other than the patient for history (EMS, parent, family, police, friend...)? What history was obtained from this source @ -EMS Did you review nursing and triage notes (agree or disagree)? Why? @ -I reviewed and agree with nursing and triage notes Were old charts reviewed (outside hosp., previous admission, EMS record, old EKG, old radiological studies, urgent care reports/EKG's, halfway records)? Report findings @ -No old charts were reviewed Differential Diagnosis (chest pain, altered mental status, abdominal pain women, abdominal pain men, vaginal bleeding, weakness, fever, dyspnea, syncope, headache, dizziness, GI bleed, back pain, seizure, CVA, palpatations, mental health, musculoskeletal)? @ -Differential Chest Pain: Stable Angina, Unstable Angina, STEMI, NSTEMI Aortic Dissection, Pneumothorax, Musculoskeletal, Esophageal Spasm GERD, Cholecystitis, Pancreatitis, Zoster, this is not meant to be an all-inclusive list. EKG interpreted by me (3pts min.). @ -yes and demonstrates sinus rhythm with a rate of 66. OR interval 166. QRS 100. QTc of 411. No acute ST segment elevations or depressions X-rays interpreted by me (1pt min.). @ -Yes and demonstrates no acute process CT interpreted by me (1pt min.). @ -Yes and demonstrates chronic parotid mass. No intracranial findings U/S interpreted by me (1pt. min.). @ -None done What testing was considered but not performed or refused? (CT, X-rays, U/S, labs)? Why? @ -Echopatient refused to be admitted to the hospital What meds were considered but not given or refused? Why? @ -None Did you discuss the management of the patient with other professionals (professionals i.e. , PA, TOILET ATTENDANT, lab, RT, psych nurse, school social worker, car jockey, teacher, weapons officer, case management coordinator)? Give summary @ -No Was smoking cessation discussed for >3mins.? @ -No Was critical care preformed (if so, how long)? @ -No Were there social determinants of health that impacted care today? How? (Homelessness, low income, unemployed, alcoholism, drug addiction, transportation, low edu. Level, literacy, decrease access to med. care, fpc, rehab)? @ -No Was there de-escalation of care discussed even if they declined (Discuss DNR or withdrawal of care, Hospice)? DNR status @ -No What co-morbidities impacted this encounter? (DM, HTN, Smoking, COPD, CAD, Cancer, CVA, ARF, Chemo, Hep., AIDS, mental health diagnosis, sleep apnea, mo rbid obesity)? @ -CVA Was patient admitted / discharged? Hospital course, mention meds given and route, prescriptions, significant lab abnormalities, going to OR and other pertinent info. @ -Upon arrival patient seen and evaluated in room 25. Thorough history and physical exam was performed. Twelve-lead EKG is obtained. Laboratory studies are conducted. Chest x-ray and CT brain were performed. Results are discussed with patient. Recommended admission however patient wants to go home. Patient will [facility] with [facility] for further evaluation of her symptoms. Instructed that she must return for any new or worsening symptoms. Patient agreeable and discharged Undiagnosed new problem with uncertain prognosis? @ -No Drug Therapy requiring intensive monitoring for toxicity (Heparin, Nitro, Insulin, Cardizem)? @ -No Were any procedures done? @ -No Diagnosis/symptom? @ -Acute chest pain, ataxia, history of CVA Acute, or Chronic, or Acute on Chronic? @ -Acute Uncomplicated (without systemic symptoms) or Complicated (systemic symptoms)? @ -Complicated Side effects of treatment? @ -No Exacerbation, Progression, or Severe Exacerbation? @ -No Poses a threat to life or bodily function? How? (Chest pain, [place], [place], pneumonia, PE, COPD, DKA, ARF, appy, cholecystitis, CVA, Diverticulitis, Homicidal, Suicidal, threat to staff... and all critical care pts) @ -No Disposition Clinical Impression: Chest pain, Ataxia, Hx of arterial ischemic stroke Disposition: HOME SELF-CARE Condition: Stable Instructions (If sedation given, give patient instructions): Chest Pain (ED) Additional Instructions: Please follow-up with your primary care doctor for further management of your symptoms. Return for any new or worsening symptoms Is patient prescribed a controlled substance at d/c from ED?: No Referrals: Adilson Espinosa [Primary Care Provider] - 1-2 days Time of Disposition: 18:57
[2024-02-11] MEDS: IPRATROPIUM-ALBUTEROL 3 ML NEB INHALATION STA (18:26)
--- NOTE | 2024-02-11 18:31 | CT ---
EXAMINATION TYPE: CT angio head neck CT DLP: 1585 mGycm, Automated exposure control for dose reduction was used. DATE OF EXAM: 02/11/2024 6:15 PM COMPARISON: 01/19/2019.. CLINICAL INDICATION:Female, 78 years old with history of ataxia, hx stroke; PHH, Ataxia, hx of stroke . TECHNIQUE: Axially acquired helical CT angiogram of the head and neck was obtained with contrast. Axi al images are supplemented with 3D reconstructions and MIP images which were post-processed at an in dependent workstation. NASCET criteria used. Contrast used:65ml mL of Isovue 370 with IV Contrast, Oral contrast used: None. FINDINGS: CTA HEAD: No evidence of acute intracranial hemorrhage, mass effect, or midline shift. The ventricles, sulci, a nd cisterns are unremarkable. Remote left parietal lobe injury. The visualized portions of the internal carotid arteries, middle cerebral arteries, anterior cerebral arteries, and posterior cerebral arteries are patent. Atherosclerosis of the intracranial internal c arotid arteries. The basilar and vertebral arteries are patent. CTA NECK: Right Carotid System: The common carotid and external carotid arteries are patent. There is less than 25% stenosis at the c arotid bifurcation secondary to calcified/noncalcified plaque. The rest of the internal carotid arter y is patent. Left Carotid System: The common carotid and external carotid arteries are patent. There is less than 25% stenosis at the c arotid bifurcation secondary to calcified/noncalcified plaque. The rest of the internal carotid arter y is patent. Vertebral arteries are patent without evidence hemodynamically significant stenosis. There is a three-vessel aortic arch. The origins of the great vessels are patent. No evidence of hemo dynamically significant stenosis. Upper thorax: Large right parotid gland mass partially visualized. Mass measures on the last image of the [id number] 37 x 26 mm. Bilateral aphakia. IMPRESSION: 1. No evidence of dissection of the cervical internal carotid arteries or vertebral arteries or any e vidence of significant stenosis at the carotid bifurcations. 2. No evidence of intracranial high-grade stenosis or intracranial aneurysm. 3. Right inferior parotid gland lesion similar dating back to at least 2018. 4. Remote left parietal lobe injury with encephalomalacia.
[2024-02-11] MEDS: SODIUM CHLORIDE 0.9% 1,000 ML IV ONE (18:41)
[2024-02-11 18:50] VITALS: BP 167/90; PULSE 68; RESP 20
== END 2024-02-11 19:53 | disposition home or self-care (01) ==
LOC: EC 14:39
DX: R07.89 Other chest pain (principal); R27.0 Ataxia, unspecified; Z86.73 Personal history of transient ischemic attack (TIA), and cerebral infarction without residual deficits; F17.200 Nicotine dependence, unspecified, uncomplicated
CPT/HCPCS: 36415; 94640; 93005; 83880; 80053; 83735; 84484; 85025; 85610; 85730; 87636; 71046; 70496; 70498; 99285; 96360; Q9967

== ENCOUNTER 2024-10-08 18:37 | Emergency (ER) | payer MEDICARE, OTHER ==
[2024-10-08 18:45] VITALS: TEMP 98.5
[2024-10-08 19:19] LABS: Basophils % (A) 0 %; Eosinophils # (A) 0.3 k/uL (0-0.7); Eosinophils % (A) 4 %; HCT 44.3 % (34.0-46.0); HGB 13.4 gm/dL (11.4-16.0); Lymphocytes # (A) 1.6 k/uL (1.0-4.8); Lymphocytes % (A) 21 %; MCH 26.3 pg (25.0-35.0); MCHC 30.3 g/dL (31.0-37.0); Mean Platelet Volume 7.7; Monocytes # (A) 0.4 k/uL (0-1.0); Monocytes % (A) 5 %; Neutrophils # (A) 5.3 k/uL (1.3-7.7); Neutrophils % (A) 69 %; Platelet Count 378 k/uL (150-450); RBC 5.09 m/uL (3.80-5.40); RDW 13.5 % (11.5-15.5); WBC 7.7 k/uL (3.8-10.6)
[2024-10-08 19:26] LABS: INR 0.9 (<1.2); Partial Thromboplastin Time 24.6 sec (22.0-30.0); Prothrombin Time 10.4 sec (10.0-12.5)
[2024-10-08 19:34] LABS: ALT 10 U/L (4-34); AST 18 U/L (14-36); African American GFR (CKD) >90 (>60 ml/min/1.73 sqM); Albumin 3.7 g/dL (3.5-5.0); Alkaline Phosphatase 88 U/L (38-126); Anion Gap 2 mmol/L; Blood Urea Nitrogen 14 mg/dL (7-17); Calcium 9.3 mg/dL (8.4-10.2); Carbon Dioxide 32 mmol/L (22-30); Chloride 103 mmol/L (98-107); Glucose 118 mg/dL (74-99); Magnesium 2.1 mg/dL (1.6-2.3); Non-African American GFR(CKD) >90 (>60 ml/min/1.73 sqM); Potassium 3.7 mmol/L (3.5-5.1); Sodium 137 mmol/L (137-145); Total Bilirubin 0.4 mg/dL (0.2-1.3)
--- NOTE | 2024-10-08 19:42 | XR ---
EXAMINATION TYPE: XR chest 2V DATE OF EXAM: 10/08/2024 CLINICAL INDICATION: Female, 79 years old with history of Chest Pain, TECHNIQUE: Frontal and lateral views of the chest are obtained. COMPARISON: Chest x-ray February 11, 2024 FINDINGS: There is new right basilar opacity. Mild cardiomegaly redemonstrated. Septal closure devic e again seen. At least moderate-sized hiatal hernia is noted. The osseous structures remain deminera lized. IMPRESSION: Mild cardiomegaly with new right basilar acute infiltrate and/or atelectasis. [facility], , 10/08/2024 7:39 PM
[2024-10-08] MEDS: LORazepam 1 MG TAB PO STA (19:59)
[2024-10-08 20:06] VITALS: BP 131/82; PULSE 62; RESP 16
[2024-10-08] MEDS: IPRATROPIUM-ALBUTEROL 3 ML NEB INHALATION STA (20:52)
--- NOTE | 2024-10-08 21:19 | ED ---
Chest Pain HPI - General Chief Complaint: Chest Pain Stated Complaint: possible high bp Time Seen by Provider: 10/08/24 19:28 Source: patient Mode of arrival: ambulatory Limitations: no limitations - History of Present Illness Initial Comments: 79-year-old female with history of hypertension, A-fib, CVA presenting with chief complaint of elevated blood pressure. Patient checks her blood pressure daily, she is noting today while she was checking it that it was elevated. She also reports that she was having some episodes of chest heaviness and difficulty breathing that started today. She does note a cough, she attributes this to "a long cold winter", also states she has not been as active as she normally is. Patient reports she has been under a lot of stress, her daughter a few days ago. No lower extremity swelling. Some nausea, no vomiting or abdominal pain. No fever. No congestion or sore throat. Mild headache from time to time, states that it feels like headaches she has had in the past. - Related Data Home Medications Medication Instructions Recorded Confirmed amLODIPine [Norvasc] 5 mg PO DAILY 09/12/22 02/11/24 Aspirin [Pine Aspirin EC] 81 mg PO DAILY 05/24/23 02/11/24 lisinopriL [Zestril] 20 mg PO BID 08/27/23 02/11/24 Sertraline [Zoloft] 25 mg PO BID 02/11/24 02/11/24 busPIRone HCl [Buspar] 5 mg PO BID 02/11/24 02/11/24 Previous Rx's Medication Instructions Recorded traZODone HCL [Desyrel] 50 mg PO HS 3 Days #3 tab 12/20/23 Azithromycin [Zithromax] 250 mg PO DAILY 4 Days #4 tab 10/08/24 LORazepam [Ativan] 1 mg PO HS PRN 3 Days #3 tab 10/08/24 Allergies Allergy/AdvReac Type Severity Reaction Status Date / Time No Known Allergies Allergy Verified 02/11/24 15:42 Review of Systems ROS Statement: Those systems with pertinent positive or pertinent negative responses have been documented in the HPI. ROS Other: All systems not noted in ROS Statement are negative. Past Medical History Past Medical History: Atrial Fibrillation, CVA/TIA, Hearing Disorder / Deafness, Hypertension Additional Past Medical History / Comment(s): See Dr Alvarez's H&P. Hx stroke and TIA's, some difficulty with balance & walking (has cane & walker as needed) Hx Shingles in 2013. Hx kidney stones. 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 Environmental allergies. Hard of hearing. History of Any Multi-Drug Resistant Organisms: None Reported Past Surgical History: Cholecystectomy, Tubal Ligation Additional Past Surgical History / Comment(s): Bilateral cataract surgery, glaucoma procedure. Past Anesthesia/Blood Transfusion Reactions: No Reported Reaction Additional Past Anesthesia/Blood Transfusion Reaction / Comment(s): Pt received blood at age 18 and had a reaction but cannot recall type of reaction. Past Psychological History: Anxiety Smoking Status: Current every day smoker Past Alcohol Use History: None Reported Past Drug Use History: None Reported - Past Family History Father History Unknown: Yes Family Medical History: No Reported History Mother Family Medical History: Cancer, COPD Additional Family Medical History / Comment(s): Mother was healthy General Exam Limitations: no limitations General appearance: alert, in no apparent distress Head exam: Present: atraumatic, normocephalic, normal inspection Eye exam: Present: normal appearance, EOMI Neck exam: Present: normal inspection. Absent: meningismus Respiratory exam: Present: normal lung sounds bilaterally. Absent: respiratory distress, wheezes, rales, rhonchi, stridor Cardiovascular Exam: Present: regular rate, normal rhythm, normal heart sounds. Absent: systolic murmur, diastolic murmur, rubs, gallop, clicks Extremities exam: Absent: pedal edema Neurological exam: Present: alert, oriented X3 Psychiatric exam: Present: normal affect, normal mood Skin exam: Present: warm, dry, normal color Course Vital Signs 10/08/24 10/08/24 18:40 19:59 Temperature 98.5 F Pulse Rate 73 62 Respiratory 20 16 Rate Blood Pressure 162/91 131/82 O2 Sat by Pulse 95 96 Oximetry Chest Pain MDM - MDM Was pt. sent in by a medical professional or institution (, PA, [employer], urgent care, hospital, or usp...) When possible be specific @ -No Did you speak to anyone other than the patient for history (EMS, parent, family, police, friend...)? What history was obtained from this source @ -Daughter Did you review nursing and triage notes (agree or disagree)? Why? @ -I reviewed and agree with nursing and triage notes Were old charts reviewed (outside hosp., previous admission, EMS record, old EKG, old radiological studies, urgent care reports/EKG's, usp records)? Report findings @ -No old charts were reviewed Differential Diagnosis (chest pain, altered mental status, abdominal pain women, abdominal pain men, vaginal bleeding, weakness, fever, dyspnea, syncope, headache, dizziness, GI bleed, back pain, seizure, CVA, palpatations, mental health, musculoskeletal)? @ -MDM Differential Dyspnea: Coronary syndrome, arrhythmia, tamponade, asthma, COPD, pulmonary embolism, pneumonia, pneumothorax, pulmonary effusion, anaphylaxis, diabetic ketoacidosis, flailed chest, pulmonary contusion, diaphragmatic rupture, anemia, neuromuscular this is not meant to be an all-inclusive list. EKG interpreted by me (3pts min.). @ -EKG shows sinus rhythm ventricular rate 73. OK interval 164. QRS 103. QT 400. QTc 426. X-rays interpreted by me (1pt min.). @ -Chest x-ray shows mild cardiomegaly with new right basilar acute infiltrate CT interpreted by me (1pt min.). @ -None done U/S interpreted by me (1pt. min.). @ -None done What testing was considered but not performed or refused? (CT, X-rays, U/S, labs)? Why? @ -None What meds were considered but not given or refused? Why? @ -None Did you discuss the management of the patient with other professionals (professionals i.e. , PA, [employer], lab, RT, psych nurse, social group worker, rn school, teacher, administrative officer, medical case worker)? Give summary @ -No Was smoking cessation discussed for >3mins.? @ -No Was critical care preformed (if so, how long)? @ -No Were there social determinants of health that impacted care today? How? (Homelessness, low income, unemployed, alcoholism, drug addiction, transportation, low edu. Level, literacy, decrease access to med. care, senior living, rehab)? @ -No Was there de-escalation of care discussed even if they declined (Discuss DNR or withdrawal of care, Hospice)? DNR status @ -No What co-morbidities impacted this encounter? (DM, HTN, Smoking, COPD, CAD, Cancer, CVA, ARF, Chemo, Hep., AIDS, mental health diagnosis, sleep apnea, morbid obesity)? @ -None Was patient admitted / discharged? Hospital course, mention meds given and route, prescriptions, significant lab abnormalities, going to OR and other pertinent info. @ -79-year-old female presenting with chief complaint of elevated blood pressure. She also reports some difficulty breathing and chest heaviness today. History and physical examination are conducted. Lab work shows no leukocytosis or anemia. Negative troponin. BNP 254. Chest x-ray shows mild cardiomegaly with new right basilar infiltrate. Patient was ordered a breathing treatment, she declined. Patient was given 1 mg of Ativan which she reports really helped her stress, she reports that she has been very stressed lately because of the recent of her daughter. Patient is educated on today's findings. Patient is a very motivated to be discharged home. She states that she does not want to stay in the hospital at this time because of the recent of her daughter. She is feeling well and feels okay to go home at this time. I offered admission which she declines. Her vital signs are stable I believe this is reasonable. Her other daughter is currently staying at home with her and will monitor her closely. She will be started on azithromycin. She is also provided with 3 tablets of Ativan for home due to the recent stressful events. Follow-up with PCP. Report back to ER with any new or worsening symptoms. Discussed return parameters and answered all questions. Patient conveyed verbal understanding and agreed to the plan. I discussed this case in detail with my attending Dr. Cunha Undiagnosed new problem with uncertain prognosis? @ -No Drug Therapy requiring intensive monitoring for toxicity (Heparin, Nitro, Insulin, Cardizem)? @ -No Were any procedures done? @ -No Diagnosis/symptom? @ -Pneumonia Acute, or Chronic, or Acute on Chronic? @ -Acute Uncomplicated (without systemic symptoms) or Complicated (systemic symptoms)? @ -Uncomplicated Side effects of treatment? @ -No Exacerbation, Progression, or Severe Exacerbation? @ -No Poses a threat to life or bodily function? How? (Chest pain, [place], [place], pneumonia, PE, COPD, DKA, ARF, appy, cholecystitis, CVA, Diverticulitis, Homicidal, Suicidal, threat to staff... and all critical care pts) @ -Potential with any infection, seemingly low likelihood at this time Disposition Clinical Impression: Pneumonia Disposition: HOME SELF-CARE Condition: Fair Instructions (If sedation given, give patient instructions): Community Acquired Pneumonia (ED) Additional Instructions: Follow up with PCP. Report back to ER with any new or worsening symptoms. Take medication as prescribed. Prescriptions: LORazepam [Ativan] 1 mg PO HS PRN 3 Days #3 tab PRN Reason: Anxiety Azithromycin [Zithromax] 250 mg PO DAILY 4 Days #4 tab Is patient prescribed a controlled substance at d/c from ED?: Yes When asked, does pt state using other controlled substances?: No If prescribed controlled substance>3 days was MAPS reviewed?: Prescribed <3 Days Referrals: None,Stated [Primary Care Provider] - 1-2 days Forms: [facility] PCPs Time of Disposition: 21:19
[2024-10-08] MEDS: AZITHROMYCIN 500 MG TAB PO STA (21:30)
== END 2024-10-08 21:47 | disposition home or self-care (01) ==
LOC: EC 18:37
DX: J18.9 Pneumonia, unspecified organism (principal); I51.7 Cardiomegaly; F17.200 Nicotine dependence, unspecified, uncomplicated; Z86.73 Personal history of transient ischemic attack (TIA), and cerebral infarction without residual deficits
CPT/HCPCS: 36415; 71046; 80053; 83735; 83880; 84484; 85025; 85610; 85730; 99285

== ENCOUNTER → 2025-01-15 | Outpatient (CLI) | payer MEDICARE, OTHER ==
[2025-01-15 17:40] LABS: African American GFR (CKD) >90 (>60 ml/min/1.73 sqM); Blood Urea Nitrogen 16 mg/dL (7-17); Non-African American GFR(CKD) >90 (>60 ml/min/1.73 sqM)
--- NOTE | 2025-01-15 18:33 | CT ---
EXAMINATION TYPE: CT brain wo/w con CT DLP: 2507.6 mGycm, Automated exposure control for dose reduction was used. DATE OF EXAM: 01/15/2025 6:18 PM COMPARISON: CTA head and neck 02/11/2024, CT soft tissue neck 01/29/2019, 04/13/2016. CLINICAL INDICATION:Female, 79 years old with history of R41.0 DISORIENTATION, UNSPECIFIED; PHH, Head aches x1 month TECHNIQUE: Axial CT images of the brain were obtained followed by contrast enhanced axial images of t he brain with 100 cc of ISO-view 370 IV contrast. One or more CT dose reduction strategies were utili zed during this examination. Coronal and sagittal reformats reviewed. FINDINGS: Extra-axial spaces: No abnormal extra-axial fluid collections. Anterior falx calcification. Ventricular system: Within normal limits Cerebral parenchyma: Cerebral atrophy. No acute intraparenchymal hemorrhage or mass effect. Encephal omalacia within the left parieto-occipital region from prior injury. The remaining mcdaniel-white junctio n is well differentiated. Scattered and confluent hypoattenuating areas are seen within the periventr icular and subcortical white matter. No abnormal enhancement is seen after the administration of intr avenous contrast. Cerebellum: Unremarkable. Mass effect: No evidence of midline shift. Intracranial vasculature: Atherosclerotic calcifications of the intracranial vessels. Soft tissues: Partial visualization of solid appearing right parotid lesion measuring at least 3.2 x 2.0 cm. This visualized portion is grossly similar to prior exam. Calvarium/osseous structures: No depressed skull fracture. Paranasal sinuses and mastoid air cells: The mastoid air cells are clear. Cerumen within the bilatera l external auditory canals. Inferior right maxillary sinus 1.8 cm polyp versus mucous retention cyst. Mild mucosal thickening of the ethmoid sinuses. The remaining paranasal sinuses are clear. Visualized orbits: Bilateral aphakia IMPRESSION: 1. No acute intracranial process and no evidence to suggest intracranial mass. 2. Encephalomalacia from remote injury again demonstrated within the left occipital parietal region. 3. Nonspecific white matter changes, likely secondary to chronic small vessel ischemic disease. 4. Partial visualization of solid right parotid lesion again. The visualized portion is similar to pr ior exam. [facility], , 01/15/2025 6:31 PM
--- NOTE | 2025-01-15 18:41 | CTL ---
EXAMINATION TYPE: CT Low Dose Lung DATE OF EXAM ORDERED: 01/15/2025 COMPARISON: Chest radiograph 10/08/2024 CLINICAL INDICATION: Female, 79 years old with history of R41.0 DISORIENTATION, UNSPECIFIED; PHH, Sandrita g screening for nicotine dependence of 1/2ppd x63 years, current smoker, Lung cancer screening, Histo ry of Smoking/tobacco use. TECHNIQUE: Low dose computed tomography scan was performed through the chest at 1 mm thick sections a nd reconstructed images in multiple planes at 1 mm and [address] DLP: 144.[address] CTDI: 3.8 mGy Automated exposure control for dose reduction was used. CT DIAGNOSTIC QUALITY: Satisfactory FINDINGS: Nodules: Masslike consolidation with patchy airspace opacities within the right lower lobe abutting the right major fissure and hilum. Measures grossly 4.9 x 3.4 cm. No other suspicious pulmonary nodules identif ied. LUNGS: COPD: Severity: None Fibrosis: Severity: None Lymph nodes: None Other findings: Minimal biapical pleural-parenchymal scarring. Linear atelectasis along the right benjamin or fissure. RIGHT PLEURAL SPACE: Effusion: None Calcification: None Thickening: None Pneumothorax: Trace LEFT PLEURAL SPACE: Effusion: None Calcification: None Thickening: None Pneumothorax: None HEART: Heart Size: Normal size, dense mitral annulus calcifications. Atrial septal occlusion device. Coronary Calcification: Small Pericardial Effusion: None OTHER FINDINGS: Upper abdomen: Large hiatal hernia containing the majority of the stomach intrathoracic. Right adrena l gland lesion measuring up to 3.3 cm with a Hounsfield unit of 12. Nonobstructing left renal calculu s measuring up to 5 mm. A few diverticula involving the splenic flexure without surrounding inflammat ory changes to suggest acute diverticulitis. Bony thorax: Mild multilevel degenerative disc disease of the thoracic spine. Supraclavicular region: None Other: None IMPRESSION: 1. Right lower lobe masslike consolidation with adjacent airspace opacities. Findings may relate to pneumonia versus underlying pulmonary mass. Recommend PET/CT. 2. Indeterminate right adrenal gland 3.3 cm lesion. This can be evaluated on PET/CT versus CT or MR abdomen adrenal mass protocol. 3. Trace right pleural effusion. 4. Large hiatal hernia. CT LUNG RAD AND CT CHEST RECOMMENDATION: Lung-Rad 4B or 4X Very Suspicious: Follow-up Chest CT with o r without contrast or PET/CT and/or tissue sampling. PET/CT may be used when there is a > 8 mm solid component. S Modifier (other clinically significant findings): S [facility], , 01/15/2025 6:38 PM
== END | disposition home or self-care (01) ==
LOC: RADCTMAIN 16:42
PROVIDERS: ATTEND Internal Medicine
DX: Z12.2 Encounter for screening for malignant neoplasm of respiratory organs (principal); J90 Pleural effusion, not elsewhere classified; K44.9 Diaphragmatic hernia without obstruction or gangrene; R91.8 Other nonspecific abnormal finding of lung field; R41.0 Disorientation, unspecified; F17.210 Nicotine dependence, cigarettes, uncomplicated; G93.89 Other specified disorders of brain; K11.8 Other diseases of salivary glands
CPT/HCPCS: 82565; 84520; 70470; 36415; 71271; Q9967